=== PATIENT | female | born 1965 | race Caucasian/White ===

== ENCOUNTER 2016-12-01 01:08 | Emergency (ER) | payer SELFPAY ==
[~2016-12-01] VITALS: Ht 172.7 cm; Wt 67.4 kg
[~2016-12-01 01:08] MED LIST: ADVI200C5 PO; GINS250C2 PO; LEVO125T4 PO; LYRI75CA PO; PERC5TAB12 PO; TRAZ100T4 PO
[2016-12-01 01:16] VITALS: BP 154/110; PULSE 84; RESP 16; TEMP 99.3; O2SAT 99
[2016-12-01] MEDS ORDERED: SODIUM CHLOR 0.9% 1000 ML INJ 1,000 ML IV SCH (01:35)
[2016-12-01] MEDS ORDERED: SODIUM CHLORIDE 0.9% FLUSH 5 ML FLUSH IVF PRN (01:45)
[2016-12-01] MEDS ORDERED: ONDANSETRON HCL 4 MG/2 ML VIAL IVP ONE (01:45)
[2016-12-01] MEDS ORDERED: PANTOPRAZOLE SODIUM 40 MG VIAL IVP ONE (01:45)
[2016-12-01] MEDS ORDERED: MORPHINE SULFATE 4 MG/ML INJ IV PUSH ONE ×2 (01:45→03:45)
--- NOTE | 2016-12-01 01:47 | PD ---
HPI Chief Complaint: Abdominal Pain Time Seen by Provider: 01:35 Travel History International Travel<30 days: No Contact w/Intl Traveler<30days: No Traveled to known affect area: No History of Present Illness HPI 51-year-old female presents to the emergency department for complaint of abdominal pain. Patient states she is having exacerbation of recurrent pancreatitis. Patient has history of previous hepatitis C pancreatitis cholecystectomy chest pain myocardial infarction stent placement times one seizure disorder hypertension dyslipidemia and hypothyroidism. Patient denies any chest pain or shortness of breath at this time. Patient has had nausea and vomiting. Patient is unable to identify exacerbating or alleviating factors. No hematemesis no coffee-ground emesis also no melena or hematochezia. No urinary symptoms. No recent febrile illness or respiratory illness. Patient states that oftentimes changing her diet reading something unusual trigger an episode but does not know other precipitating events. Denies alcohol use. Denies hypertriglyceridemia. Patient rates her pain 10 over 10 in intensity. PFSH Past Medical History Narrative Medical CAD, myocardial infarction, coronary stent, hypertension, anxiety depression, arthritis, migraine, thyroid cancer status post chemotherapy and radiation therapy, seizure, TIA, cardiac catheterization, tubal ligation, appendectomy, cholecystectomy, MRCP, endoscopy, no tobacco use no alcohol use nursing notes reviewed Hx Anticoagulant Therapy: No Arthritis: Yes (Severe in hands) Asthma: No Autoimmune Disease: No Bipolar Disorder: Yes Anxiety: No Depression: Yes (D/t circumstances) Heart Rhythm Problems: No Cancer: Yes (Thyroid cancer) Cardiac Catheterization: Yes (FIVE TIMES ALONG WITH ONE STENT) Cardiovascular Problems: Yes (htn on meds, -2006) High Cholesterol: No Chemotherapy: Yes (hx) Chest Pain: Yes Congestive Heart Failure: No COPD: No Cerebrovascular Accident: Yes (2005 and 2009, temporary left sided weakness, intermittent tingling present) Coronary Artery Disease: Yes Diabetes: No Diminished Hearing: No Endocrine: Yes (Severe Chronic Pancreatitis) Gastrointestinal Disorders: Yes (NAUSEA AND VOMITTING FOR 6 DAYS) GERD: No Genitourinary: Yes (Recurrent yeast infections) Headaches: Yes (About once a month) Hepatitis: Yes (C) Hiatal Hernia: No Herniated Disk: Yes (L4,L5) Hypertension: Yes (FOR HTN) Immune Disorder: No Implanted Vascular Access Dvce: No Insomnia: Yes Kidney Stones: No Musculoskeletal: Yes (Feet hurt and throb within the past two months) Neurologic: Yes Psychiatric: No Reproductive: Yes Respiratory: No Immunizations Current: Yes Migraines: Yes (About once a month) Myocardial Infarction: Yes (2010) Pancreatitis: Yes Pneumonia: Yes Radiation Therapy: Yes (HX ) Renal Failure: No Seizures: Yes Shingles: Yes Sickle Cell Disease: No Sleep Apnea: No Thyroid Disease: Yes (Thyroid cancer, thyroidectomy) Ulcer: No PNEUMOCCOCAL Vaccine (Year): 2010 Menopausal: Yes : 8 Para: 6 Miscarriage: 1 : 1 Ectopic : Yes (x2) Tubal Ligation: Yes Past Surgical History Abdominal Surgery: Yes (gallbladder removal ) AICD: No Appendectomy: Yes (1992) Arteriovenous Shunt: No Body Medical Devices: NONE PER PT Cardiac Surgery: Yes (Cardiac catherterization X5 and coil placed on side of heart) Section: Yes (X2) Cholecystectomy: Yes (SEP 2014) Coronary Artery Bypass Graft: No Coronary Stent: Yes (X1) Ear Surgery: No Endocrine Surgery: Yes (Thyroidectomy to remove thyroid cancer) Eye Surgery: No Genitourinary Surgery: Yes (Bladder lift with mesh and sling) Gynecologic Surgery: Yes ( X2, buttock, anus, and vagina reconstruction, hyserectomy) Hysterectomy: Yes Insulin Pump: No Joint Replacement: No Neurologic Surgery: Yes Oral Surgery: No Pacemaker: No Thoracic Surgery: No Tonsillectomy: Yes Other Surgery: Yes Social History Alcohol Use: No Tobacco Use: No Substance Use: No Allergies-Medications (Allergen,Severity, Reaction): Coded Allergies: No Known Allergies (Unverified , 12/01/16) Reported Meds & Prescriptions Reported Meds & Active Scripts Active Lyrica (Pregabalin) 75 Mg Cap 75 Mg PO BID Reported Zofran (Ondansetron HCl) 8 Mg Tab 8 Mg PO TID Xanax (Alprazolam) 1 Mg Tab 1 Mg PO BID PRN Ginseng 250 Mg Cap 1,553 Mg PO TID Levothyroxine (Levothyroxine Sodium) 125 Mcg Tab 125 Mcg PO DAILY Percocet (Oxycodone-Acetaminophen) 5-325 mg Tab 1 Tab PO Q4H PRN Advil (Ibuprofen) 200 Mg Cap 200 Mg PO QID Review of Systems Except as stated in HPI: all other systems reviewed are Neg General / Constitutional: No: Fever, Chills HENT: No: Congestion Cardiovascular: No: Chest Pain or Discomfort Respiratory: No: Shortness of Breath Gastrointestinal: Positive: Nausea, Vomiting, Abdominal Pain Genitourinary: No: Flank Pain Musculoskeletal: No: Myalgias, Arthralgias Skin: No Rash Neurologic: No: Weakness Psychiatric: Positive: Anxiety Hematologic/Lymphatic: No: Lymph Node Enlargement Physical Exam Narrative GENERAL: Well-developed well-nourished female in no acute distress no respiratory distress SKIN: Warm and dry. HEAD: Normocephalic. EYES: No scleral icterus. No injection or drainage. NECK: Supple, trachea midline. No JVD or lymphadenopathy. CARDIOVASCULAR: Regular rate and rhythm without murmurs, gallops, or rubs. RESPIRATORY: Breath sounds equal bilaterally. No accessory muscle use. GASTROINTESTINAL: Abdomen soft, epigastric and periumbilical tenderness to palpation without guarding or rebound, nondistended. MUSCULOSKELETAL: No cyanosis, or edema. BACK: Nontender without obvious deformity. No CVA tenderness. Data Data Last Documented VS Vital Signs Date Time Temp Pulse Resp B/P Pulse Ox O2 Delivery O2 Flow Rate FiO2 12/01/16 02:07 69 20 140/81 98 12/01/16 01:16 99.3 Orders Complete Blood Count With Diff (12/01/16 01:35) Comprehensive Metabolic Panel (12/01/16 01:35) Lipase (12/01/16 01:35) Lactic Acid (12/01/16 01:35) Urinalysis - C+S If Indicated (12/01/16 01:35) Ct Abd/Pel W Iv Contrast(Rout) (12/01/16 01:35) Iv Access Insert/Monitor (12/01/16 01:35) Ecg Monitoring (12/01/16 01:35) Oximetry (12/01/16 01:35) Morphine Inj (Morphine Inj) (12/01/16 01:45) Ondansetron Inj (Zofran Inj) (12/01/16 01:45) Pantoprazole Inj (Protonix Inj) (12/01/16 01:45) Sodium Chlor 0.9% 1000 Ml Inj (Ns 1000 M (12/01/16 01:35) Sodium Chloride 0.9% Flush (Ns Flush) (12/01/16 01:45) Chest, Single Ap (12/01/16 01:35) Troponin I (12/01/16 01:35) Electrocardiogram (12/01/16 ) Iohexol 350 Inj (Omnipaque 350 Inj) (12/01/16 02:46) Sodium Chlor 0.9% 1000 Ml Inj (Ns 1000 M (12/01/16 03:45) Morphine Inj (Morphine Inj) (12/01/16 03:45) Ketorolac Inj (Toradol Inj) (12/01/16 03:45) Ondansetron Inj (Zofran Inj) (12/01/16 03:45) Labs Laboratory Tests Test 12/01/16 01:30 White Blood Count 6.4 TH/MM3 Red Blood Count 4.49 MIL/MM3 Hemoglobin 12.8 GM/DL Hematocrit 38.1 % Mean Corpuscular Volume 84.7 FL Mean Corpuscular Hemoglobin 28.5 PG Mean Corpuscular Hemoglobin 33.6 % Concent Red Cell Distribution Width 12.8 % Platelet Count 227 TH/MM3 Mean Platelet Volume 8.2 FL Neutrophils (%) (Auto) 56.1 % Lymphocytes (%) (Auto) 30.5 % Monocytes (%) (Auto) 11.4 % Eosinophils (%) (Auto) 1.5 % Basophils (%) (Auto) 0.5 % Neutrophils # (Auto) 3.6 TH/MM3 Lymphocytes # (Auto) 2.0 TH/MM3 Monocytes # (Auto) 0.7 TH/MM3 Eosinophils # (Auto) 0.1 TH/MM3 Basophils # (Auto) 0.0 TH/MM3 CBC Comment DIFF FINAL Differential Comment Sodium Level 144 MEQ/L Potassium Level 3.7 MEQ/L Chloride Level 108 MEQ/L Carbon Dioxide Level 25.7 MEQ/L Anion Gap 10 MEQ/L Blood Urea Nitrogen 4 MG/DL Creatinine 0.66 MG/DL Estimat Glomerular Filtration 94 ML/MIN Rate Random Glucose 101 MG/DL Lactic Acid Level 0.7 mmol/L Calcium Level 8.5 MG/DL Total Bilirubin 0.7 MG/DL Aspartate Amino Transf 65 U/L (AST/SGOT) Alanine Aminotransferase 148 U/L (ALT/SGPT) Alkaline Phosphatase 92 U/L Troponin I LESS THAN 0.02 NG/ML Total Protein 7.3 GM/DL Albumin 3.8 GM/DL Lipase 183 U/L MDM Medical Decision Making Medical Screen Exam Complete: Yes Emergency Medical Condition: Yes Medical Record Reviewed: Yes Interpretation(s) trop I: less than 0.02, not elevated EKG normal sinus rhythm rate 68 age indeterminate QS septally no acute ST elevation or injury pattern change noted; changes noted on prior EKG's Last Impressions Chest X-Ray 12/01/16134 Signed Impressions: Service Date/Time: Thursday, December 01, 2016 02:40 - CONCLUSION: 1. No acute cardiopulmonary disease. Taj Lopez MD Abdomen/Pelvis CT 12/01/16134 Signed Impressions: Service Date/Time: Thursday, December 01, 2016 02:28 - CONCLUSION: 1. No evidence of acute abdominal or pelvic process. No masses are identified. Taj Lopez MD Vital Signs Date Time Temp Pulse Resp B/P Pulse Ox O2 Delivery O2 Flow Rate FiO2 12/01/16 02:07 69 20 140/81 98 12/01/16 02:03 20 12/01/16 01:16 99.3 84 16 154/110 99 CBC & BMP Diagram 12/01/16 01:30 Differential Diagnosis Abdominal pain pancreatitis gastritis peptic ulcer disease choledocholithiasis atypical chest pain ACS also to consider colitis renal colic abdominal aortic aneurysm Narrative Course Patient Nothing by mouth IV access obtained specimens collected and sent for resulting patient administered Zofran 4 mg IV Protonix 40 mg IV and morphine sulfate 4 mg IV along with bolus of normal saline; EKG and cardiac enzymes were ordered Patient sent for CT abdomen and pelvis with IV contrast Patient continued to experience nausea and abdominal pain requesting more pain medication and medication for nausea and vomiting Patient administered additional dose of morphine sulfate 2 mg IV Zofran 4 mg IV Toradol 30 mg IV; patient specifically requesting Phenergan administered Phenergan 25 mg IM Patient informed of lab results being all within normal range including troponin I less than 0.02 EKG being sinus rhythm without any acute injury pattern change and CT abdomen and causes revealing no acute abnormality. Patient is stable for outpatient management and close follow-up with her primary care provider. Patient will be given prescription for Phenergan in tablet and suppository form. Diagnosis Primary Impression: Abdominal pain Qualified Code: R10.33 - Periumbilical abdominal pain Additional Impression: Recurrent pancreatitis Referrals: Primary Care Physician 1 day Patient Instructions: Narcotic given in the ED, General Instructions Additional Instructions: Follow clear liquid diet for next 12-24 hours; advance diet as tolerated with bland/Sheri diet; advance to regular diet as tolerated Follow-up with your primary care provider call office in a.m. to schedule follow -up appointment Return to the emergency department for pain fever vomiting or any concerns Use Phenergan as prescribed as needed for nausea or vomiting use tablet form but provided suppository form for breakthrough nausea and vomiting Fluid hydration No work times one day Med/Other Pt SpecificInfo: Prescription(s) given Scripts Promethazine Supp (Phenergan Supp)25 Mg Supp25 Mg RECTAL Q6H PRN (NAUSEA OR VOMITING) #6 SUPP Ref 0 Prov:Radha Lyon MD 12/01/16 Promethazine (Phenergan)25 Mg Tab25 Mg PO Q6H PRN (Nausea/Vomiting) #10 TAB Ref 0 Prov:Radha Lyon MD 12/01/16 Disposition: 01 DISCHARGE HOME Condition: Stable Radha Lyon MD Dec 01, 2016 01:46
[2016-12-01 01:54] LABS: AUTOMATED NEUTROPHIL # 3.6 TH/MM3 (1.8-7.7); BASOPHIL % 0.5 % (0.0-2.0); EOSINOPHIL # 0.1 TH/MM3 (0-0.4); EOSINOPHIL % 1.5 % (0.0-4.0); HEMATOCRIT 38.1 % (35.0-46.0); HEMO FLAGS DIFF FINAL; LYMPH % 30.5 % (9.0-44.0); MEAN CELL VOLUME 84.7 FL (80.0-100.0); MEAN CORPUSCULAR HEMOGLOBIN 28.5 PG (27.0-34.0); MEAN CORPUSCULAR HGB CONC 33.6 % (32.0-36.0); MONO % 11.4 % (0.0-8.0); NEUT % 56.1 % (16.0-70.0); PLATELET COUNT 227 TH/MM3 (150-450); RED BLOOD COUNT 4.49 MIL/MM3 (4.00-5.30); RED CELL DISTRIBUTION WIDTH 12.8 % (11.6-17.2); WHITE BLOOD COUNT 6.4 TH/MM3 (4.0-11.0)
[2016-12-01 02:04] LABS: CHLORIDE 108 MEQ/L (98-107); POTASSIUM 3.7 MEQ/L (3.5-5.1); SODIUM (NA) 144 MEQ/L (136-145)
[2016-12-01 02:07] VITALS: BP 140/81; PULSE 69; RESP 20; O2SAT 98
[2016-12-01 02:07] LABS: ANION GAP 10 MEQ/L (5-15); BICARBONATE 25.7 MEQ/L (21.0-32.0)
[2016-12-01 02:08] LABS: BLOOD UREA NITROGEN 4 MG/DL (7-18)
[2016-12-01 02:10] LABS: ALT (GPT) 148 U/L (10-53); AST (GOT) 65 U/L (15-37); GLOMERULAR FILTRATION RATE 94 ML/MIN (>89)
[2016-12-01 02:12] LABS: TOTAL BILIRUBIN ADULT 0.7 MG/DL (0.2-1.0)
[2016-12-01] MEDS ORDERED: XANA1TAB2 PO (02:12)
[2016-12-01] MEDS ORDERED: ZOFR8TAB PO (02:12)
[2016-12-01 02:13] LABS: ALKALINE PHOSPHATASE 92 U/L (45-117)
[2016-12-01] MEDS ORDERED: IOHEXOL 350 MG/ML 10 ML VIAL (for RAD DIAG) IV ONE (02:46)
[2016-12-01 03:00] VITALS: BP 131/66; PULSE 71; RESP 20; O2SAT 99
--- NOTE | 2016-12-01 03:19 | RADHPO ---
EXAM DATE/TIME: 12/01/2016 02:40 [facility] COMPARISON: CHEST SINGLE AP, February 10, 2015, 19:29. INDICATIONS : Tightness in chest. MEDICAL HISTORY : Cerebrovascular disease. Cardiovascular disease. Hypertension. SURGICAL HISTORY : Cholecystectomy. Appendectomy. Hysterectomy. ENCOUNTER: Initial ACUITY: 1 day PAIN SCORE: 9/10 LOCATION: Bilateral chest FINDINGS: A single view of the chest demonstrates the lungs to be symmetrically aerated without evidence of mas s, infiltrate or effusion. The cardiomediastinal contours are unremarkable. Osseous structures are intact. CONCLUSION: 1. No acute cardiopulmonary disease. Taj Lopez MD on December 01, 2016 at 3:18 Board Certified Radiologist. This report was verified electronically.
--- NOTE | 2016-12-01 03:23 | RADHPO ---
EXAM DATE/TIME: 12/01/2016 02:28 [facility] COMPARISON: MRCP W/O CONTRAST, May 10, 2016, 10:55. CT ABDOMEN & PELVIS W CONTRAST, February 10, 2015, 22:00. INDICATIONS : Diffuse abdominal pain with nausea and vomiting. IV CONTRAST: 95 cc Omnipaque 350 (iohexol) IV ORAL CONTRAST: No oral contrast ingested. RADIATION DOSE: 9.04 CTDIvol (mGy) MEDICAL HISTORY : Myocardial infarction. Hepatitis C. Coronary artery disease. SURGICAL HISTORY : Coronary artery stent. Cholecystectomy.Appendectomy.Hysterectomy. ENCOUNTER: Initial ACUITY: 1 day PAIN SCALE: 6/10 LOCATION: Abdomen. TECHNIQUE: Volumetric scanning of the abdomen and pelvis was performed. Using automated exposure control and ad justment of the mA and/or kV according to patient size, radiation dose was kept as low as reasonably achievable to obtain optimal diagnostic quality images. FINDINGS: LOWER LUNGS: The visualized lower lungs are clear. LIVER: Homogeneous density without lesion. There is no dilation of the biliary tree. The gallbladder is mahajan rgically absent. The intrahepatic ducts and common bile duct are prominent which may reflect reservoi r effect. SPLEEN: Normal size without lesion. PANCREAS: Within normal limits. KIDNEYS: Normal in size and shape. There is no mass, stone or hydronephrosis. ADRENAL GLANDS: Within normal limits. VASCULAR: There is no aortic aneurysm. BOWEL/MESENTERY: The stomach, small bowel, and colon demonstrate no acute abnormality. There is no free intraperitone al air or fluid. ABDOMINAL WALL: Within normal limits. RETROPERITONEUM: There is no lymphadenopathy. BLADDER: No wall thickening or mass. REPRODUCTIVE: Within normal limits. INGUINAL: There is no lymphadenopathy or hernia. MUSCULOSKELETAL: Within normal limits for patient age. CONCLUSION: 1. No evidence of acute abdominal or pelvic process. No masses are identified. Taj Lopez MD on December 01, 2016 at 3:18 Board Certified Radiologist. This report was verified electronically.
[2016-12-01] MEDS ORDERED: KETOROLAC TROMETHAMINE 30 MG/ML (IVP) VIAL IV PUSH ONE (03:45)
[2016-12-01] MEDS ORDERED: SODIUM CHLOR 0.9% 1000 ML INJ 1,000 ML IV ONE (03:45)
[2016-12-01] MEDS ORDERED: ONDANSETRON HCL 4 MG/2 ML VIAL IV PUSH ONE (03:45)
[2016-12-01] MEDS ORDERED: PROM1SUP7 RECTAL (03:54)
[2016-12-01] MEDS ORDERED: PROM25TA5 PO (03:54)
[2016-12-01] MEDS ORDERED: PROMETHAZINE INJ 25 MG/ML VIAL IM ONE (04:00)
[2016-12-01 05:10] VITALS: BP 133/54
--- NOTE | 2016-12-02 08:21 | EKG ---
Date Performed: 12/01/2016 Time Performed: 02:01:38 PTAGE: 51 years EKG: Sinus rhythm Since previous tracing, no significant change noted Normal ECG PREVIOUS TRACING : 06/02/2016 13.24 DOCTOR: Taj Ratliff Interpretating Date/Time 12/02/2016 08:19:48
== END 2016-12-01 05:10 | disposition home or self-care (01) ==
LOC: PHED 01:08
DX: R10.33 Periumbilical pain (principal); K86.1 Other chronic pancreatitis; K86.81 Exocrine pancreatic insufficiency; R11.2 Nausea with vomiting, unspecified; I10 Essential (primary) hypertension; Z86.79 Personal history of other diseases of the circulatory system; Z86.59 Personal history of other mental and behavioral disorders; Z87.39 Personal history of other diseases of the musculoskeletal system and connective tissue; Z86.69 Personal history of other diseases of the nervous system and sense organs; Z85.850 Personal history of malignant neoplasm of thyroid; Z86.73 Personal history of transient ischemic attack (TIA), and cerebral infarction without residual deficits; Z87.19 Personal history of other diseases of the digestive system; Z86.19 Personal history of other infectious and parasitic diseases; Z87.448 Personal history of other diseases of urinary system; Z87.09 Personal history of other diseases of the respiratory system
CPT/HCPCS: 71010; 74177; 80053; 83605; 83690; 84484; 85025; 93005; 96372; 96374; 96375; 96376; 99285; C9113; J1885; J2270; J2405; J2550; J7030; Q9967

== ENCOUNTER 2017-01-15 18:46 | Inpatient (IN) | payer SELFPAY ==
[~2017-01-15] VITALS: Ht 172.7 cm; Wt 75.5 kg
[~2017-01-15 18:46] MED LIST changes: +PROM1SUP7 RECTAL; +PROM25TA5 PO; -TRAZ100T4 PO; +XANA1TAB2 PO; +ZOFR8TAB PO
[2017-01-15 19:10] VITALS: BP 158/83; PULSE 71; RESP 18; TEMP 99.2; O2SAT 98
[2017-01-15] MEDS ORDERED: HYDR-3535 PO (19:13)
--- NOTE | 2017-01-15 19:27 | PD ---
HPI Chief Complaint: Chest Pain Time Seen by Provider: 19:15 Travel History International Travel<30 days: No Contact w/Intl Traveler<30days: No Traveled to known affect area: No History of Present Illness HPI This 51-year-old female is complaining of chest pain. She says about 45 minutes ago she started having pain which started in the sternal area and radiates to the right shoulder blade. She feels her heartbeat in her left ear. She has a history of coronary artery disease and has stents in her heart that were placed at [facility] about 2 years ago. She has a history of high blood pressure. She says she has had 3 seizures in the last couple of years and says she feels like she's can have one now. She does take aspirin daily and says she took it today. She has not had any chest pain for a while. She cannot recall if this is like the pain she had with her heart trouble. She has a history of bipolar disorder. He has a history of hypothyroidism and takes Synthroid. She does not smoke cigarettes. She does not drink alcohol. She did have chronic pancreatitis of unknown known etiology. there is a very strong family history of heart disease PFSH Past Medical History Hx Anticoagulant Therapy: No Arthritis: Yes Asthma: No Autoimmune Disease: No Bipolar Disorder: Yes Anxiety: No Depression: Yes Heart Rhythm Problems: No Cancer: Yes (Thyroid) Cardiac Catheterization: Yes (X's 1, one stent) Cardiovascular Problems: Yes High Cholesterol: No Chemotherapy: Yes Chest Pain: Yes Congestive Heart Failure: No COPD: No Cerebrovascular Accident: Yes (2005, 2009) Coronary Artery Disease: Yes Diabetes: No Diminished Hearing: No Endocrine: Yes (CHRONIC PANCREATITIS) Gastrointestinal Disorders: Yes GERD: No Genitourinary: Yes Headaches: Yes Hepatitis: Yes (C) Hiatal Hernia: No Herniated Disk: Yes (L4, L5) Hypertension: Yes Immune Disorder: No Implanted Vascular Access Dvce: No Insomnia: Yes Kidney Stones: No Musculoskeletal: Yes Neurologic: Yes Psychiatric: No Reproductive: Yes Respiratory: No Immunizations Current: Yes Migraines: Yes Myocardial Infarction: Yes (2010) Pancreatitis: Yes Pneumonia: Yes Radiation Therapy: Yes (H/O) Renal Failure: No Seizures: Yes Shingles: Yes Sickle Cell Disease: No Sleep Apnea: No Thyroid Disease: Yes Ulcer: No Tetanus Vaccination: > 5 Years Influenza Vaccination: Yes PNEUMOCCOCAL Vaccine (Year): 2010 ?: Not Menopausal: Yes : 8 Para: 6 Miscarriage: 1 : 1 Ectopic : Yes (X's 2) Tubal Ligation: Yes Past Surgical History Abdominal Surgery: Yes AICD: No Appendectomy: Yes (1992) Arteriovenous Shunt: No Body Medical Devices: NONE PER PT Cardiac Surgery: Yes Section: Yes (X's 2) Cholecystectomy: Yes Coronary Artery Bypass Graft: No Coronary Stent: Yes (X's 1) Ear Surgery: No Endocrine Surgery: Yes Eye Surgery: No Genitourinary Surgery: Yes (Bladder) Gynecologic Surgery: Yes (Pelvic mesh) Hysterectomy: Yes Insulin Pump: No Joint Replacement: No Neurologic Surgery: Yes Oral Surgery: No Pacemaker: No Thoracic Surgery: No Tonsillectomy: Yes Other Surgery: Yes Social History Alcohol Use: No Tobacco Use: No Substance Use: No Allergies-Medications (Allergen,Severity, Reaction): Coded Allergies: No Known Allergies (Unverified , 01/15/17) Reported Meds & Prescriptions Reported Meds & Active Scripts Active Reported Lortab (Hydrocodone-Acetaminophen) 10-325 Mg Tab 1 Tab PO TID PRN Levothyroxine (Levothyroxine Sodium) 125 Mcg Tab 125 Mcg PO DAILY Review of Systems General / Constitutional: No: Fever, Chills Eyes: No: Diploplia, Blurred Vision HENT: Positive: Lightheadedness, No: Headaches, Vertigo Cardiovascular: Positive: Chest Pain or Discomfort, No: Palpitations, Diaphoresis, Syncope, Dyspnea on exertion, Varicosities Respiratory: No: Cough, Shortness of Breath Gastrointestinal: No: Vomiting Genitourinary: No: Frequency Musculoskeletal: No: Myalgias, Arthralgias Skin: No Rash, No Itching Neurologic: No: Weakness Psychiatric: Positive: Mood Disorder Endocrine: No: Cold Intolerance Hematologic/Lymphatic: No: Easy Bruising Physical Exam Narrative GENERAL: Well-developed female SKIN: Focused skin assessment warm/dry. HEAD: Atraumatic. Normocephalic. EYES: Pupils equal and round. Mild scleral icterus. There is some soft tissue swelling around the eyes ENT: No nasal bleeding or discharge. Mucous membranes pink and moist. NECK: Trachea midline. No JVD. CARDIOVASCULAR: Regular rate and rhythm. No murmur appreciated. RESPIRATORY: No accessory muscle use. Clear to auscultation. Breath sounds equal bilaterally. No chest wall tenderness GASTROINTESTINAL: Abdomen soft, non-tender, nondistended. Hepatic and splenic margins not palpable. MUSCULOSKELETAL: No obvious deformities. No clubbing. No cyanosis. No edema. NEUROLOGICAL: Awake and alert. No obvious cranial nerve deficits. Motor grossly within normal limits. Normal speech. PSYCHIATRIC: Appropriate mood and affect; insight and judgment normal. Data Data Last Documented VS Vital Signs Date Time Temp Pulse Resp B/P Pulse Ox O2 Delivery O2 Flow Rate FiO2 01/15/17 20:40 74 18 140/89 97 Room Air 01/15/17 19:10 99.2 Orders Complete Blood Count With Diff (01/15/17 19:24) Basic Metabolic Panel (Bmp) (01/15/17 19:24) Troponin I (01/15/17 19:24) Chest, Single Ap (01/15/17 19:24) Lorazepam Inj (Ativan Inj) (01/15/17 19:30) Ondansetron Inj (Zofran Inj) (01/15/17 19:30) Morphine Inj (Morphine Inj) (01/15/17 19:30) Thyroid Stimulating Hormone (01/15/17 19:35) Potassium Chloride (Kcl) (01/15/17 20:15) Morphine Inj (Morphine Inj) (01/15/17 20:45) Labs Laboratory Tests Test 01/15/17 19:35 White Blood Count 5.6 TH/MM3 Red Blood Count 4.25 MIL/MM3 Hemoglobin 12.1 GM/DL Hematocrit 36.3 % Mean Corpuscular Volume 85.5 FL Mean Corpuscular Hemoglobin 28.4 PG Mean Corpuscular Hemoglobin 33.3 % Concent Red Cell Distribution Width 13.2 % Platelet Count 225 TH/MM3 Mean Platelet Volume 8.3 FL Neutrophils (%) (Auto) 44.7 % Lymphocytes (%) (Auto) 39.1 % Monocytes (%) (Auto) 12.3 % Eosinophils (%) (Auto) 3.4 % Basophils (%) (Auto) 0.5 % Neutrophils # (Auto) 2.5 TH/MM3 Lymphocytes # (Auto) 2.2 TH/MM3 Monocytes # (Auto) 0.7 TH/MM3 Eosinophils # (Auto) 0.2 TH/MM3 Basophils # (Auto) 0.0 TH/MM3 CBC Comment DIFF FINAL Differential Comment Sodium Level 143 MEQ/L Potassium Level 3.3 MEQ/L Chloride Level 104 MEQ/L Carbon Dioxide Level 30.7 MEQ/L Anion Gap 8 MEQ/L Blood Urea Nitrogen 8 MG/DL Creatinine 0.74 MG/DL Estimat Glomerular Filtration 82 ML/MIN Rate Random Glucose 86 MG/DL Calcium Level 8.4 MG/DL Troponin I LESS THAN 0.02 NG/ML Thyroid Stimulating Hormone 0.259 uIU/ML 3rd Gen [facility] Medical Decision Making Medical Screen Exam Complete: Yes Emergency Medical Condition: Yes Medical Record Reviewed: Yes Differential Diagnosis Differential includes chest wall pain, anxiety, coronary artery disease Narrative Course EKG shows normal sinus rhythm. Patient does take aspirin every day. Her troponin is negative. She does have significant history of coronary artery disease though her pain tonight seems atypical. Chest x-ray is negative. TSH is low. Diagnosis Primary Impression: Chest pain Qualified Code: R07.9 - Chest pain, unspecified type Admitting Information Admitting Physician Requests: Observation Kan Yao MD Jan 15, 2017 19:27
[2017-01-15] MEDS ORDERED: MORPHINE SULFATE 8 MG/ML INJ IV PUSH ONE ×2 (19:30→20:45)
[2017-01-15] MEDS ORDERED: ONDANSETRON HCL 4 MG/2 ML VIAL IV PUSH ONE (19:30)
[2017-01-15] MEDS ORDERED: LORazepam 2 MG/ML VIAL IV PUSH ONE (19:30)
--- NOTE | 2017-01-15 19:50 | RADHPO ---
EXAM DATE/TIME: 01/15/2017 19:37 [facility] COMPARISON: CHEST SINGLE AP, December 01, 2016, 2:40. INDICATIONS : Chest pain. MEDICAL HISTORY : Myocardial infarction. SURGICAL HISTORY : None. ENCOUNTER: Initial ACUITY: 1 day PAIN SCORE: 5/10 LOCATION: Bilateral chest FINDINGS: A single view of the chest demonstrates the lungs to be symmetrically aerated without evidence of mas s, infiltrate or effusion. The cardiomediastinal contours are unremarkable. Osseous structures are intact. CONCLUSION: No acute disease. Jonah Johnson MD on January 15, 2017 at 19:48 Board Certified Radiologist. This report was verified electronically.
[2017-01-15 20:06] LABS: AUTOMATED NEUTROPHIL # 2.5 TH/MM3 (1.8-7.7); BASOPHIL % 0.5 % (0.0-2.0); EOSINOPHIL # 0.2 TH/MM3 (0-0.4); EOSINOPHIL % 3.4 % (0.0-4.0); HEMATOCRIT 36.3 % (35.0-46.0); HEMO FLAGS DIFF FINAL; LYMPH % 39.1 % (9.0-44.0); LYMPHOCYTE # 2.2 TH/MM3 (1.0-4.8); MEAN CELL VOLUME 85.5 FL (80.0-100.0); MEAN CORPUSCULAR HEMOGLOBIN 28.4 PG (27.0-34.0); MEAN CORPUSCULAR HGB CONC 33.3 % (32.0-36.0); MONO % 12.3 % (0.0-8.0); NEUT % 44.7 % (16.0-70.0); PLATELET COUNT 225 TH/MM3 (150-450); RED BLOOD COUNT 4.25 MIL/MM3 (4.00-5.30); RED CELL DISTRIBUTION WIDTH 13.2 % (11.6-17.2); WHITE BLOOD COUNT 5.6 TH/MM3 (4.0-11.0)
[2017-01-15 20:07] LABS: CHLORIDE 104 MEQ/L (98-107); POTASSIUM 3.3 MEQ/L (3.5-5.1); SODIUM (NA) 143 MEQ/L (136-145)
[2017-01-15 20:13] LABS: ANION GAP 8 MEQ/L (5-15); BICARBONATE 30.7 MEQ/L (21.0-32.0); BLOOD UREA NITROGEN 8 MG/DL (7-18)
[2017-01-15] MEDS ORDERED: POTASSIUM CHLORIDE 20 MEQ CONTROLLED RELEASE TAB PO ONE (20:15)
[2017-01-15 20:16] LABS: GLOMERULAR FILTRATION RATE 82 ML/MIN (>89)
[2017-01-15 20:40] VITALS: BP 140/89; PULSE 74; RESP 18; O2SAT 97
[2017-01-15 21:36] VITALS: O2SAT 97
[2017-01-15 22:56] LABS: CREATINE KINASE 46 U/L (26-192)
[2017-01-16] VITALS (9 sets, daily range): BP systolic 136–151; BP diastolic 71–98; PULSE 58–81; RESP 16–18; TEMP 98–98.9; O2SAT 97–99
[2017-01-16] MEDS: MORPHINE SULFATE 4 MG/ML INJ IV PUSH PRN ×6 (00:41→21:41)
[2017-01-16 01:55] LABS: CREATINE KINASE 47 U/L (26-192)
[2017-01-16] MEDS ORDERED: ALPRAZolam 0.25 MG TAB PO ONE (04:45)
[2017-01-16] MEDS: ONDANSETRON HCL 4 MG/2 ML VIAL IV PUSH PRN (04:49)
[2017-01-16 06:14] LABS: INDIRECT BILIRUBIN 0.5 MG/DL (0.0-0.8); TOTAL BILIRUBIN ADULT 0.7 MG/DL (0.2-1.0)
[2017-01-16] MEDS: SODIUM CHLORIDE 0.9% FLUSH 10 ML FLUSH IV FLUSH SCH ×2 (08:51→21:00)
[2017-01-16] MEDS ORDERED: LORazepam 2 MG/ML VIAL IV PUSH PRN (10:30)
--- NOTE | 2017-01-16 10:47 | HHI.HP ---
[facility] Abimael Saldana MD Admission Diagnosis CHEST PAIN Diagnoses: (1) Chest pain Diagnosis: Principal (2) Coronary artery disease Diagnosis: Principal (3) Hypertension Diagnosis: Secondary (4) History of seizure Diagnosis: Secondary Chief Complaint: Chest pain Travel History International Travel<30 Days: No Contact w/Intl Traveler <30 Da: No Traveled to Known Affected Are: No History of Present Illness 51-year-old female with rather extensive medical history with hypertension, hyperlipidemia, coronary artery disease, hypothyroidism, history of seizures, bipolar disorder, hepatitis C, history of recurrent pancreatitis, history of thyroid cancer, history of Graves' disease who presented to hospital because of chest pain. Patient states that she was at work and approximate 4: 30 yesterday afternoon she developed a chest pain in the middle part of her chest radiating up into her right shoulder. She described as a pain of 8/10 on a pain scale. She states that the pain was persistent and did not go away so she came to the hospital for evaluation. So quickly she indicates that she has some numbness in the left side of her face as well. She had associated nausea but no vomiting, does get short of breath, did have some dizziness, did develop diaphoresis. Patient does have history seizures, she indicates she is not on any medication for this time. States that she cannot afford the medication. She also feels that she is getting ready to have a seizure. She denies any recent seizures. Patient was evaluated in emergency department and because of her presentation of chest discomfort patient was recommended observation chest pain center. Patient has had previous cardiac catheterization 8 years ago in which she states that they could not put a stent in because of the angle of the artery. She states that she had a coiling done of her heart because of the fistula. Not seen a scientific specialist in at least 7 years. She has had a stress test done in April 2016 which was normal. At the present time patient still an active chest pain which is atypical. She is concerned that if we rule her out for any acute coronary syndrome or any underlying ischemia then she does not want to go home because she feels that she is getting ready to have a seizure. She is requesting further workup to be done if her cardiac workup is negative. Review of Systems Constitutional: COMPLAINS OF: Diaphoretic episodes, Night Sweats, DENIES: Fatigue, Fever, Weight gain, Weight loss, Chills, Dizziness, Change in appetite Eyes: COMPLAINS OF: Blurred vision, DENIES: Diplopia, Eye inflammation, Eye pain, Vision loss, Photosensitivity, Double Vision Ears, nose, mouth, throat: DENIES: Vertigo, Nasal discharge, Throat pain, Ear Pain, Running Nose, Sinus Pain Respiratory: DENIES: Apneas, Cough, Snoring, Wheezing, Hemoptysis, Sputum production, Shortness of breath Cardiovascular: COMPLAINS OF: Chest pain, DENIES: Palpitations, Syncope, Dyspnea on Exertion, Lower Extremity Edema, Orthopnea Gastrointestinal: COMPLAINS OF: Nausea, DENIES: Abdominal pain, Black stools, Bloody stools, Constipation, Diarrhea, Vomiting, Difficulty Swallowing, Anorexia Neurologic: COMPLAINS OF: Paresthesias, DENIES: Abnormal gait, Headache, Localized weakness, Seizures, Speech Problems, Tremor, Poor Balance Psychiatric: COMPLAINS OF: Anxiety, DENIES: Confusion, Mood changes, Depression, Hallucinations Past Family Social History Past Medical History Hypertension Hyperlipidemia Coronary artery disease Hypothyroidism Bipolar disorder History of recurrent pancreatitis Hepatitis C History of Graves' disease History myocardial infarction History of cardiac fistula Past Surgical History Thyroid surgery Tubal ligation Cardiac catheterization Appendectomy Cholecystectomy Hysterectomy Bladder mass removed Vaginal reconstructive surgery Reported Medications Reported Meds & Active Scripts Active Reported Lortab (Hydrocodone-Acetaminophen) 10-325 Mg Tab 1 Tab PO TID PRN Levothyroxine (Levothyroxine Sodium) 125 Mcg Tab 125 Mcg PO DAILY Allergies: Coded Allergies: No Known Allergies (Unverified , 01/15/17) Family History Reviewed is significant for anyone in her family having heart disease and heart attacks Social History Patient denies any tobacco, alcohol or illicit drugs Physical Exam Vital Signs Vital Signs Date Time Temp Pulse Resp B/P Pulse Ox O2 Delivery O2 Flow Rate FiO2 01/16/17 07:48 58 01/16/17 07:40 62 18 138/71 96 01/16/17 04:33 Room Air 01/16/17 04:30 98.5 81 18 151/97 98 Room Air 01/16/17 01:00 16 01/16/17 00:40 82 01/16/17 00:40 66 18 151/91 99 Room Air 01/15/17 21:36 97 01/15/17 20:45 18 01/15/17 20:40 74 18 140/89 97 Room Air 01/15/17 19:55 16 01/15/17 19:15 71 01/15/17 19:10 99.2 71 18 158/83 98 Physical Exam GENERAL: Well-developed, well-nourished, in no acute distress. alert and orientated HEENT: Head is normocephalic without any lesions or masses noted. Facial features are symmetric. Eyes: Exophthalmus. Pupils equal round reactive to light. Extraocular muscles are intact. Conjunctivae were clear. Oropharyngeal: Pharynx without any erythema edema. Tongue is midline without deviation. Buccal mucosa is moist without any masses or lesions NECK: Supple without any masses. Trachea midline no deviation. No JVD, no bruits are appreciated CARDIAC: Regular rhythm, regular rate. S1/S2 are heard. No murmurs gallops or rubs. LUNGS: Clear to auscultation bilaterally. No wheeze, rhonchi or rales. No use of accessory muscles on inspiration or expiration. ABDOMEN: Soft, nontender. Nondistended. Bowel sounds heard in all 4 quadrants. No organomegaly or masses. Negative rebound, negative guarding EXTREMITIES: No edema, pulses are equal bilaterally. No cyanosis or clubbing NEUROLOGY: Patient does appear to be depressed, histrionic and affect appear appropriate. Cranial nerves II through XII grossly intact. Muscle strength 5/5 in upper and lower extremities bilaterally. Deep tendon reflexes are 2+ in upper and lower extremities bilaterally. Laboratory Laboratory Tests Test 01/15/17 01/15/17 01/16/17 01/16/17 19:35 22:30 01:30 05:51 White Blood Count 5.6 Red Blood Count 4.25 Hemoglobin 12.1 Hematocrit 36.3 Mean Corpuscular Volume 85.5 Mean Corpuscular Hemoglobin 28.4 Mean Corpuscular Hemoglobin 33.3 Concent Red Cell Distribution Width 13.2 Platelet Count 225 Mean Platelet Volume 8.3 Neutrophils (%) (Auto) 44.7 Lymphocytes (%) (Auto) 39.1 Monocytes (%) (Auto) 12.3 Eosinophils (%) (Auto) 3.4 Basophils (%) (Auto) 0.5 Neutrophils # (Auto) 2.5 Lymphocytes # (Auto) 2.2 Monocytes # (Auto) 0.7 Eosinophils # (Auto) 0.2 Basophils # (Auto) 0.0 CBC Comment DIFF FINAL Differential Comment Sodium Level 143 Potassium Level 3.3 Chloride Level 104 Carbon Dioxide Level 30.7 Anion Gap 8 Blood Urea Nitrogen 8 Creatinine 0.74 Estimat Glomerular Filtration 82 Rate Random Glucose 86 Calcium Level 8.4 Troponin I LESS THAN 0.02 LESS THAN 0.02 LESS THAN 0.02 Thyroid Stimulating Hormone 0.259 3rd Gen Total Creatine Kinase 46 47 Total Bilirubin 0.7 Direct Bilirubin 0.2 Indirect Bilirubin 0.5 Aspartate Amino Transf 71 (AST/SGOT) Alanine Aminotransferase 115 (ALT/SGPT) Alkaline Phosphatase 87 Total Protein 6.1 Albumin 3.1 Lipase 164 Result Diagram: 01/15/17193401/15/171934 Imaging Last Impressions Chest X-Ray 01/15/171923 Signed Impressions: Service Date/Time: December 19:37 - CONCLUSION: No acute disease. Jonah Johnson MD Assessment and Plan Assessment and Plan Chest pain, typical for female: Patient with nonbleeding chest discomfort left sternal border radiating to the right shoulder. Patient has have increased risk factors include age, hypertension, hyperlipidemia, coronary artery disease , family history of heart disease. Patient has been ruled out for any acute coronary event with serial cardiac enzymes that are negative, serial EKGs shows sinus rhythm without any changes. Was going to pursue nuclear stress test, however patient called and stated that she had a seizure. So will discontinue stress test at this time. Further workup to be decided by attending group Seizure per patient: No active seizure was witnessed by medical staff. Nursing staff notified me that the patient called the nursing station and told them that she had a seizure. Upon evaluation and it appears the patient lost bladder control. No loss of bowel control. No post ictal state. Telemetry was reviewed which did not indicate any acute abnormality. We'll transfer the patient to ICU, start seizure precautions, Ativan as needed for active seizures. To be noted: Patient was indicating earlier that she did not want to be discharged home if her cardiac workup was negative. She wanted to have workup done for her seizures because she is not on any medication and cannot afford to pay for them. I notified her that she was in the chest pain center to have cardiac evaluation and if the workup is negative that she would likely be discharged home and would need to have workup done by her primary medical doctor since she has not had any active seizures. Approximately 20 minutes after telling her that is when she notified nursing staff that she had a seizure. Hypothyroidism: Resume home medications. TSH 0.259 History of hypertension, hyperlipidemia, coronary artery disease, bipolar disorder, fibromyalgia, history myocardial infarction, history of recurrent pancreatitis: Patient is not on any active medications for these conditions. It does appear the patient does have a significant psychological condition with history of bipolar. Records indicate patient has have history of suicidal attempt with drug overdose. DVT prevention: Subcutaneous Lovenox Addendum to Inpatient Note Additional Information PCP is Dr. Stevens, patient ruled out for HEAD GRINDER, now complaining of seizures, [facility] Problem Qualifiers (1) Chest pain: Qualified Code: R07.9 - Chest pain, unspecified type (2) Coronary artery disease: (3) Hypertension: Qualified Code: I15.9 - Secondary hypertension Cuong Amado Jan 16, 2017 10:47 Krystal Lee MD Jan 16, 2017 17:55
[2017-01-16] MEDS: ALPRAZolam 1 MG TAB PO PRN (14:14)
--- NOTE | 2017-01-16 16:41 | EKG ---
Date Performed: 01/15/2017 Time Performed: 19:13:24 PTAGE: 51 years EKG: Sinus rhythm Normal ECG Compared to prior tracing no significant change PREVIOUS TRACING : 12/01/2016 02.01 DOCTOR: Catherine Linn Interpretating Date/Time 01/16/2017 16:38:10
--- NOTE | 2017-01-16 16:41 | EKG ---
Date Performed: 01/15/2017 Time Performed: 22:32:08 PTAGE: 51 years EKG: Sinus rhythm Possible septal infarct - age undetermined Compared to prior tracing no significant change Abnormal ECG PREVIOUS TRACING : 01/15/2017 19.13 DOCTOR: Catherine Linn Interpretating Date/Time 01/16/2017 16:38:19
--- NOTE | 2017-01-16 16:41 | EKG ---
Date Performed: 01/16/2017 Time Performed: 01:50:02 PTAGE: 51 years EKG: Sinus rhythm Inferior/lateral ST-T changes are nonspecific Compared to prior tracing no significant change Border line ECG PREVIOUS TRACING : 01/15/2017 22.32 DOCTOR: Catherine Linn Interpretating Date/Time 01/16/2017 16:38:30
[2017-01-17] VITALS: BP 127/96; PULSE 65; RESP 18; TEMP 98; O2SAT 97
[2017-01-17] MEDS: MORPHINE SULFATE 4 MG/ML INJ IV PUSH PRN ×5 (02:37→20:31)
[2017-01-17 04:00] VITALS: BP 130/85; PULSE 93; RESP 20; TEMP 98.9; O2SAT 95
[2017-01-17] MEDS: ALPRAZolam 1 MG TAB PO PRN ×2 (06:48→16:56)
[2017-01-17 08:00] VITALS: BP 139/81; PULSE 67; PULSE 70; RESP 19; TEMP 98.4; O2SAT 98
[2017-01-17] MEDS: SODIUM CHLORIDE 0.9% FLUSH 10 ML FLUSH IV FLUSH SCH ×2 (08:55→21:00)
--- NOTE | 2017-01-17 09:34 | HHI.PR ---
Subjective History of Present Illness Patient c/o right shoulder pain and mild chest discomfort no fever/ chills d/ w RN Ailyn at bed side. deny any suicidal ideation intent and plan refuse to go home. Review of Systems Constitutional Constitutional: Fatigue Vitals/Results Intake & Output 01/16/17 01/16/17 01/17/17 15:00 23:00 07:00 Intake Total 20 ml Balance 20 ml Intake IV Total 20 ml Vital Signs Vital Signs Date Time Temp Pulse Resp B/P Pulse Ox O2 Delivery O2 Flow Rate FiO2 01/17/17 08:00 98.4 70 19 139/81 98 01/17/17 04:00 98.9 93 20 130/85 95 01/17/17 00:00 98.0 65 18 127/96 97 01/16/17 20:49 98.9 70 16 136/90 99 01/16/17 20:00 68 01/16/17 16:00 01/16/17 12:22 97 21 01/16/17 12:00 98.0 62 16 147/98 98 CBC/BMP: 01/15/17 1935 01/15/171934 Physical Exam General General Appearance: No Acute Distress, Comfortable Eyes Eye Exam: Pupils Equal, Pupils Reactive, Sclera White, Extraocular Movement Intact Throat Throat Exam: Oral Mucosa [place] & Moist, Oral Pharynx Normal Neck Neck Exam: Neck Supple, Trachea Midline Pulmonary Resp Exam: Clear Bilaterally, Breath Sounds Equal, No Distress Cardiology CV Exam: Regular, Normal Sinus Rhythm Gastrointestinal/Abdomen GI Exam: Soft, Non-Tender, Bowel Sounds Present Musculoskeletal MS Exam: Normal Tone Integumentary Skin Exam: Clear, Warm, Dry Extremeties Extremities Exam: No Edema Neurologic Neuro Exam: Alert, Awake, Oriented, Speech Clear, Moving All Extremities, No Focal Deficits VTE Prophylaxis VTE Prophylaxis Meds: Heparin PUD Prophylasis PUD Prophylaxis: Protonix Assessment/Plan Problem List: (1) Chest pain (2) Coronary artery disease (3) Hypertension (4) History of seizure Assessment/Plan Assessment and Plan Chest pain, typical for female: Patient with chest discomfort left sternal border radiating to the right shoulder. Patient has have increased risk factors include age, hypertension, hyperlipidemia, coronary artery disease, family history of heart disease. Patient has been ruled out for any acute coronary event with serial cardiac enzymes that are negative, serial EKGs shows sinus rhythm without any changes. have been evaluated multiple times in the past for chest pain Further workup per patient progress. Seizure per patient: No active seizure was witnessed by medical staff. Nursing staff notified me that the patient called the nursing station and told them that she had a seizure. Upon evaluation and it appears the patient lost bladder control. No loss of bowel control. No post ictal state. Telemetry was reviewed which did not indicate any acute abnormality. on seizure precautions, Ativan as needed for seizures. I notified her that she was in the chest pain center to have cardiac evaluation and if the workup is negative that she would likely be discharged home and would need to have workup done by her primary medical doctor since she has not had any active seizures. Hypothyroidism: Resume home medications. TSH 0.259 History of hypertension, hyperlipidemia, coronary artery disease, bipolar disorder, fibromyalgia, history myocardial infarction, history of recurrent pancreatitis: Patient is not on any active medications for these conditions. It does appear the patient does have a significant psychological condition with history of bipolar. Records indicate patient has have history of suicidal attempt with drug overdose. but patient deny any suicidal / homicidal ideation intent and plan. DVT prevention: Subcutaneous Lovenox Discussed Condition with: Patient Problem Qualifiers (1) Chest pain: Qualified Code: R07.9 - Chest pain, unspecified type (2) Coronary artery disease: (3) Hypertension: Qualified Code: I15.9 - Secondary hypertension Torin Milian MD Jan 17, 2017 09:34
[2017-01-17] MEDS ORDERED: PNEUMOCOCCAL POLYVALENT INJ 25 MCG/0.5 ML SYR IM ONE (10:00)
[2017-01-17] MEDS ORDERED: INFLUENZA VIRUS VACCINE (QUADRIVALENT) 0.5 ML SYR IM ONE (10:00)
[2017-01-17] MEDS: ONDANSETRON HCL 4 MG/2 ML VIAL IV PUSH PRN ×2 (10:43→16:56)
[2017-01-17 12:00] VITALS: BP 136/85; PULSE 79; RESP 18; TEMP 98.2; O2SAT 97
--- NOTE | 2017-01-17 12:17 | MB ---
cc: SENAIT GLYNN,HOLLIE YANG DATE OF CONSULTATION: 01/16/[address] Milian REASON FOR CONSULTATION Psychiatric evaluation. HISTORY OF PRESENT ILLNESS Ms. Olivas is a 51-year-old female with no reported past psychiatric history per patient but a chart history of bipolar disorder, mood disorder and substance use issues who presented for medical admission complaining of chest pain. She was admitted to the medical floor for a chest pain rule out. She subsequently developed a spell and there was concern for seizure. Reviewing the electronic medical record, I see the patient was admitted under Dr. Liriano in 2006 when she received a bipolar diagnosis and was stabilized on Zyprexa. She also was noted to have benzo use issues at that time. She was seen most recently by Dr. Carney in 2014 for mood disorder and opiate dependence. The patient seen and examined. Chart reviewed. Case discussed with nursing staff who reports the patient has complained of high anxiety and there is concern that the patient's seizure/spell was feigned. The patient has been no behavioral problem otherwise and there has been no reported evidence of any suicidality or homicidality while under observation on the medical unit. On my examination today, the patient is calm and pleasant. She does complain of modest levels of generalized and panicky anxiety. No obsessive or compulsive symptoms reported. She also reports feeling overwhelmed and has anxious rumination disrupting her sleep. She does endorse some issues with low mood that are mild and some occasional feelings of hopelessness and worthlessness, but no persistent or severe depressive or hypomanic/manic symptoms. She gives a questionable history of perhaps some hypomania as in the past but no clear elver. She denies ever having experienced audiovisual hallucinations and I can elicit no delusional beliefs. She denies SI or HI. The remainder of the psychiatric ROS is negative. PAST PSYCHIATRIC HISTORY The patient denies a history of psychiatric diagnoses. Chart diagnoses as listed above. Not currently under the care of a psychiatrist. Reportedly psychiatrically admitted in 2005 following her father's for a "nervous breakdown". Perhaps this was the admission under Dr. Liriano in 2006. In any event, the patient denies a history of suicide attempts. FAMILY HISTORY The patient reports a paternal great-grandmother completed suicide. She has an older sister with bipolar disorder that was previously on Seroquel. CHEMICAL DEPENDENCY HISTORY The patient denies but has a chart history of benzo and opiate use issues. SOCIAL HISTORY The patient reports that she stays with her children. She has a daughter who is and a son who has several grandchildren of hers. She has five children altogether. 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 She has a Bachelor's Degree in Psychology and Business Management. Denies any history. Denies any legal history. Denies any islam or spiritual beliefs. She was nine months ago. She does keep a gun for protection. PAST MEDICAL HISTORY Includes a history of hypertension, pancreatitis, cirrhosis and hepatitis. The patient also reports that she has had three seizures/spells the last two years with aura. REVIEW OF SYSTEMS No reported headache, vision or hearing changes, chest pain, shortness of breath, bowel or bladder issues. No other physical complaints. PHYSICAL EXAMINATION VITAL SIGNS: Temperature is 98.0, pulse 62, respirations 16, blood pressure 147/98, pulse oximetry 98% on room air. A physical examination was completed by the primary team. On my examination today, the patient appears to be in no acute physical distress. No motoric abnormalities noted. LABORATORIES REVIEWED: CBC unremarkable. CMP is significant for decreased potassium at 3.3 mild transaminitis, TSH is low at 0.259. Chest x-ray is read as no acute disease. MENTAL STATUS EXAMINATION The patient is in a hospital gown but she is well-groomed. She is awake, alert and oriented x3. No evidence of delirium. No abnormal motor movements noted. Speech is within normal limits for rate, tone and volume. Language and fund of knowledge seem average to above-average. Mood is fair and affect is somewhat anxious. Thought process linear. No loosening of associations. No evident delusions. Denies audiovisual hallucinations. Denies suicidal or homicidal ideation. Insight and judgment are fair. ASSESSMENT AND PLAN 1. Mixed anxiety disorder, F41.3. 2. Mood disorder, F39. Rule out bipolar or unipolar mild depression. 3. History of substance use disorder per chart. This is a 51-year-old female with psychiatric history as detailed above who is presently voluntarily admitted to the medical floor for a chest pain rule out and also a concern for seizure. Psychiatry is consulted for a psychiatric evaluation. The patient describes chiefly anxious symptoms both generalized and panicky and I have given her a mixed anxiety disorder diagnosis. There is also possibly some degree of mild depression and a possible history of hypomania. I have given her a mood disorder diagnosis with rule out unipolar and bipolar mild depression. I have discussed the patient's options regarding psychopharmacology, but she is declining any psychotropics at this time. I would say that if the patient is evaluated and determined to have a seizure disorder in need of an antiepileptic, I might prefer one with mood stabilizing properties such as Depakote or Tegretol or Lamictal if her liver can tolerate it and would dis-prefer Keppra as this can exacerbate dysphoria in patients with underlying mood disorders. The patient is not suicidal or homicidal. She is attending to her basic needs. She does not meet Navarro Act criteria at this time nor does she require inpatient psychiatric stabilization. She would likely benefit from outpatient psychiatric followup and we should refer her for this on discharge. I have counseled the patient regarding warning signs for need to return to psychiatric emergency room as part of a general safety plan. I provided the patient with my card should she wish to discuss medication options further. Otherwise I have no specific recommendations at this time. Thank you very much for this consultation. Please call or page [phone] with questions. Otherwise I will sign off for now. Senait VALLES /10:48 AM /11:45 AM LISBETH
[2017-01-17 16:00] VITALS: BP 141/92; PULSE 73; RESP 18; TEMP 97.7; O2SAT 97
[2017-01-17 20:00] VITALS: BP 144/93; PULSE 88; PULSE 93; RESP 18; TEMP 97.2; O2SAT 97
[2017-01-18] VITALS: BP 134/87; PULSE 75; RESP 18; TEMP 95.8; O2SAT 98
[2017-01-18] MEDS: MORPHINE SULFATE 4 MG/ML INJ IV PUSH PRN ×6 (00:57→22:16)
[2017-01-18 04:00] VITALS: BP 141/95; PULSE 57; RESP 18; TEMP 96.4; O2SAT 100
[2017-01-18 07:32] LABS: AUTOMATED NEUTROPHIL # 1.6 TH/MM3 (1.8-7.7); BASOPHIL % 1.2 % (0.0-2.0); EOSINOPHIL # 0.3 TH/MM3 (0-0.4); EOSINOPHIL % 7.6 % (0.0-4.0); HEMATOCRIT 38.1 % (35.0-46.0); HEMO FLAGS DIFF FINAL; LYMPH % 36.5 % (9.0-44.0); LYMPHOCYTE # 1.4 TH/MM3 (1.0-4.8); MEAN CELL VOLUME 86.2 FL (80.0-100.0); MEAN CORPUSCULAR HGB CONC 32.5 % (32.0-36.0); MONO % 14.9 % (0.0-8.0); NEUT % 39.8 % (16.0-70.0); PLATELET COUNT 209 TH/MM3 (150-450); RED BLOOD COUNT 4.43 MIL/MM3 (4.00-5.30); RED CELL DISTRIBUTION WIDTH 13.4 % (11.6-17.2); WHITE BLOOD COUNT 3.9 TH/MM3 (4.0-11.0)
[2017-01-18 07:57] LABS: ALKALINE PHOSPHATASE 103 U/L (45-117); ALT (GPT) 149 U/L (10-53); ANION GAP 7 MEQ/L (5-15); AST (GOT) 107 U/L (15-37); BICARBONATE 31.5 MEQ/L (21.0-32.0); BLOOD UREA NITROGEN 7 MG/DL (7-18); CHLORIDE 108 MEQ/L (98-107); GLOMERULAR FILTRATION RATE 86 ML/MIN (>89); POTASSIUM 4.3 MEQ/L (3.5-5.1); SODIUM (NA) 146 MEQ/L (136-145); TOTAL BILIRUBIN ADULT 0.4 MG/DL (0.2-1.0)
[2017-01-18 08:00] VITALS: BP 141/90; PULSE 65; PULSE 78; RESP 21; TEMP 97.6; O2SAT 100
[2017-01-18] MEDS: SODIUM CHLORIDE 0.9% FLUSH 10 ML FLUSH IV FLUSH SCH ×2 (08:37→20:06)
[2017-01-18] MEDS: ONDANSETRON HCL 4 MG/2 ML VIAL IV PUSH PRN ×2 (08:58→18:13)
[2017-01-18] MEDS: ALPRAZolam 1 MG TAB PO PRN ×2 (08:58→20:00)
[2017-01-18] MEDS ORDERED: HYDR-3535 PO (10:29)
[2017-01-18] MEDS ORDERED: XANA1TAB2 PO (10:29)
--- NOTE | 2017-01-18 11:11 | HHI.PR ---
Subjective History of Present Illness Patient right shoulder pain and mild chest discomfort...better. no fever/ chills d/w RN Ailyn at bed side. deny any suicidal ideation intent and plan c/o headache check CT Brain Stat Review of Systems Constitutional Constitutional: Fatigue Neurologic Neurologic: Headache Vitals/Results Intake & Output 01/17/17 01/17/17 01/18/17 15:00 23:00 07:00 Intake Total 200 ml 420 ml Balance 200 ml 420 ml Intake Oral 200 ml 420 ml # Voids 1 2 # Bowel Movements 0 0 Vital Signs Vital Signs Date Time Temp Pulse Resp B/P Pulse Ox O2 Delivery O2 Flow Rate FiO2 01/18/17 08:00 97.6 78 21 141/90 100 01/18/17 04:00 96.4 57 18 141/95 100 01/18/17 00:00 95.8 75 18 134/87 98 01/17/17 20:00 97.2 88 18 144/93 97 01/17/17 20:00 93 01/17/17 16:00 97.7 73 18 141/92 97 01/17/17 12:00 98.2 79 18 136/85 97 CBC/BMP: 01/18/17 0620 01/18/17 0620 Lab Results Laboratory Tests Test 01/18/17 06:20 White Blood Count 3.9 TH/MM3 Red Blood Count 4.43 MIL/MM3 Hemoglobin 12.4 GM/DL Hematocrit 38.1 % Mean Corpuscular Volume 86.2 FL Mean Corpuscular Hemoglobin 28.0 PG Mean Corpuscular Hemoglobin 32.5 % Concent Red Cell Distribution Width 13.4 % Platelet Count 209 TH/MM3 Mean Platelet Volume 8.0 FL Neutrophils (%) (Auto) 39.8 % Lymphocytes (%) (Auto) 36.5 % Monocytes (%) (Auto) 14.9 % Eosinophils (%) (Auto) 7.6 % Basophils (%) (Auto) 1.2 % Neutrophils # (Auto) 1.6 TH/MM3 Lymphocytes # (Auto) 1.4 TH/MM3 Monocytes # (Auto) 0.6 TH/MM3 Eosinophils # (Auto) 0.3 TH/MM3 Basophils # (Auto) 0.0 TH/MM3 CBC Comment DIFF FINAL Differential Comment Sodium Level 146 MEQ/L Potassium Level 4.3 MEQ/L Chloride Level 108 MEQ/L Carbon Dioxide Level 31.5 MEQ/L Anion Gap 7 MEQ/L Blood Urea Nitrogen 7 MG/DL Creatinine 0.71 MG/DL Estimat Glomerular Filtration 86 ML/MIN Rate Random Glucose 102 MG/DL Calcium Level 8.5 MG/DL Total Bilirubin 0.4 MG/DL Aspartate Amino Transf 107 U/L (AST/SGOT) Alanine Aminotransferase 149 U/L (ALT/SGPT) Alkaline Phosphatase 103 U/L Total Protein 6.4 GM/DL Albumin 3.2 GM/DL Physical Exam General General Appearance: No Acute Distress, Comfortable Eyes Eye Exam: Pupils Equal, Pupils Reactive, Sclera White, Extraocular Movement Intact Throat Throat Exam: Oral Mucosa [place] & Moist, Oral Pharynx Normal Neck Neck Exam: Neck Supple, Trachea Midline Pulmonary Resp Exam: Clear Bilaterally, Breath Sounds Equal, No Distress Cardiology CV Exam: Regular, Normal Sinus Rhythm Gastrointestinal/Abdomen GI Exam: Soft, Non-Tender, Bowel Sounds Present Musculoskeletal MS Exam: Normal Tone Integumentary Skin Exam: Clear, Warm, Dry Extremeties Extremities Exam: No Edema Neurologic Neuro Exam: Alert, Awake, Oriented, Speech Clear, Moving All Extremities, No Focal Deficits VTE Prophylaxis VTE Prophylaxis Meds: Heparin PUD Prophylasis PUD Prophylaxis: Protonix Assessment/Plan Problem List: (1) Chest pain (2) Coronary artery disease (3) Hypertension (4) History of seizure Assessment/Plan Assessment and Plan Chest pain, typical for female: Patient with chest discomfort left sternal border radiating to the right shoulder. Patient has have increased risk factors include age, hypertension, hyperlipidemia, coronary artery disease, family history of heart disease. Patient has been ruled out for any acute coronary event with serial cardiac enzymes that are negative, serial EKGs shows sinus rhythm without any changes. have been evaluated multiple times in the past for chest pain Further workup per patient progress. Seizure per patient: No active seizure was witnessed by medical staff. Nursing staff notified me that the patient called the nursing station and told them that she had a seizure. Upon evaluation and it appears the patient lost bladder control. No loss of bowel control. No post ictal state. Telemetry was reviewed which did not indicate any acute abnormality. on seizure precautions, Ativan as needed for seizures. I notified her that she was in the chest pain center to have cardiac evaluation and if the workup is negative that she would likely be discharged home and would need to have workup done by her primary medical doctor since she has not had any active seizures. Hypothyroidism: Resume home medications. TSH 0.259 History of hypertension, hyperlipidemia, coronary artery disease, bipolar disorder, fibromyalgia, history myocardial infarction, history of recurrent pancreatitis: Patient is not on any active medications for these conditions. It does appear the patient does have a significant psychological condition with history of bipolar. Records indicate patient has have history of suicidal attempt with drug overdose. but patient deny any suicidal / homicidal ideation intent and plan. DVT prevention: Subcutaneous Lovenox ok to dc home today after ct brain if within normal limits. f/u with PCP and cardiology and Neurology 2-3 days. condition at discharge good. Activity as tolerated Diet cardiac medicine see discharge medicine list. Discussed Condition with: Patient Problem Qualifiers (1) Chest pain: Qualified Code: R07.9 - Chest pain, unspecified type (2) Coronary artery disease: (3) Hypertension: Qualified Code: I15.9 - Secondary hypertension Torin Milian MD Jan 18, 2017 11:11
--- NOTE | 2017-01-18 11:53 | RADHPO ---
EXAM DATE/TIME: 01/18/2017 11:25 [facility] COMPARISON: CT BRAIN W/O CONTRAST, June 02, 2016, 14:28. INDICATIONS : Left side cephalgia. RADIATION DOSE: 65.04 CTDIvol (mGy) MEDICAL HISTORY : Cardiovascular disease. Cardiovascular disease SURGICAL HISTORY : None. ENCOUNTER: Initial ACUITY: 1 day PAIN SCALE: 4/10 LOCATION: Left cranial TECHNIQUE: Multiple contiguous axial images were obtained of the head. Using automated exposure control and adjustment of the mA and/or kV according to patient size, radiation dose was kept as low as reasonably achievable to obtain optimal diagnostic quality images. FINDINGS: CEREBRUM: The ventricles are normal for age. No evidence of midline shift, mass lesion, hemorrha ge or acute infarction. No extra-axial fluid collections are seen. POSTERIOR FOSSA: The cerebellum and brainstem are intact. The 4th ventricle is midline. The cer ebellopontine angle is unremarkable. EXTRACRANIAL: The visualized portion of the orbits is intact. SKULL: The calvaria is intact. No evidence of skull fracture. CONCLUSION: Negative for acute process. Mat Contreras MD FACR on January 18, 2017 at 11:51 Board Certified Radiologist. This report was verified electronically.
[2017-01-18 12:00] VITALS: BP 136/88; PULSE 90; RESP 18; TEMP 98.6; O2SAT 98
[2017-01-18] MEDS: ACETAMINOPHEN/HYDROcodone 325 MG/10 MG TAB PO PRN ×2 (15:32→19:56)
[2017-01-18 16:00] VITALS: BP 141/87; PULSE 91; RESP 18; TEMP 98.2; O2SAT 97
[2017-01-18 20:00] VITALS: BP 133/87; PULSE 73; PULSE 77; RESP 20; TEMP 99; O2SAT 99
[2017-01-18] MEDS: SODIUM CHLORIDE 0.9% FLUSH 10 ML FLUSH PRN (22:16)
[2017-01-19] VITALS: BP 145/99; PULSE 74; RESP 20; TEMP 99.1; O2SAT 96
[2017-01-19] MEDS: SODIUM CHLORIDE 0.9% FLUSH 10 ML FLUSH PRN ×2 (02:22→06:20)
[2017-01-19] MEDS: MORPHINE SULFATE 4 MG/ML INJ IV PUSH PRN ×3 (02:22→10:34)
[2017-01-19] MEDS: ACETAMINOPHEN/HYDROcodone 325 MG/10 MG TAB PO PRN ×3 (03:21→13:16)
[2017-01-19 04:00] VITALS: BP 123/77; PULSE 79; RESP 20; TEMP 98.3; O2SAT 95
[2017-01-19 08:00] VITALS: BP 119/81; PULSE 78; PULSE 84; RESP 18; TEMP 98; O2SAT 96
--- NOTE | 2017-01-19 08:08 | HHI.PR ---
Subjective History of Present Illness Patient right shoulder pain and mild chest discomfort...better. no fever/ chills d/w RN Kelvin at bed side. deny any suicidal ideation intent and plan headache better checked CT Brain nothing acute. ok to DC Home today. Review of Systems Constitutional Constitutional: Fatigue Neurologic Neurologic: Headache Vitals/Results Intake & Output 01/18/17 01/18/17 01/19/17 15:00 23:00 07:00 Intake Total 360 ml 90 ml Balance 360 ml 90 ml Intake Oral 360 ml 90 ml # Voids 4 3 1 # Bowel Movements 0 0 Vital Signs Vital Signs Date Time Temp Pulse Resp B/P Pulse Ox O2 Delivery O2 Flow Rate FiO2 01/19/17 04:00 98.3 79 20 123/77 95 01/19/17 00:00 99.1 74 20 145/99 96 01/18/17 20:00 73 01/18/17 20:00 99.0 77 20 133/87 99 01/18/17 16:00 98.2 91 18 141/87 97 01/18/17 12:00 98.6 90 18 136/88 98 CBC/BMP: 01/18/17 0620 01/18/17 0620 Physical Exam General General Appearance: No Acute Distress, Comfortable Eyes Eye Exam: Pupils Equal, Pupils Reactive, Sclera White, Extraocular Movement Intact Throat Throat Exam: Oral Mucosa [place] & Moist, Oral Pharynx Normal Neck Neck Exam: Neck Supple, Trachea Midline Pulmonary Resp Exam: Clear Bilaterally, Breath Sounds Equal, No Distress Cardiology CV Exam: Regular, Normal Sinus Rhythm Gastrointestinal/Abdomen GI Exam: Soft, Non-Tender, Bowel Sounds Present Musculoskeletal MS Exam: Normal Tone Integumentary Skin Exam: Clear, Warm, Dry Extremeties Extremities Exam: No Edema Neurologic Neuro Exam: Alert, Awake, Oriented, Speech Clear, Moving All Extremities, No Focal Deficits VTE Prophylaxis VTE Prophylaxis Meds: Heparin PUD Prophylasis PUD Prophylaxis: Protonix Assessment/Plan Problem List: (1) Chest pain (2) Coronary artery disease (3) Hypertension (4) History of seizure Assessment/Plan Assessment and Plan Chest pain, typical for female: Patient with chest discomfort left sternal border radiating to the right shoulder. Patient has have increased risk factors include age, hypertension, hyperlipidemia, coronary artery disease, family history of heart disease. Patient has been ruled out for any acute coronary event with serial cardiac enzymes that are negative, serial EKGs shows sinus rhythm without any changes. have been evaluated multiple times in the past for chest pain Further workup per patient progress. Seizure per patient: No active seizure was witnessed by medical staff. Nursing staff notified me that the patient called the nursing station and told them that she had a seizure. Upon evaluation and it appears the patient lost bladder control. No loss of bowel control. No post ictal state. Telemetry was reviewed which did not indicate any acute abnormality. on seizure precautions, Ativan as needed for seizures. I notified her that she was in the chest pain center to have cardiac evaluation and if the workup is negative that she would likely be discharged home and would need to have workup done by her primary medical doctor since she has not had any active seizures. Hypothyroidism: Resume home medications. TSH 0.259 History of hypertension, hyperlipidemia, coronary artery disease, bipolar disorder, fibromyalgia, history myocardial infarction, history of recurrent pancreatitis: Patient is not on any active medications for these conditions. It does appear the patient does have a significant psychological condition with history of bipolar. Records indicate patient has have history of suicidal attempt with drug overdose. but patient deny any suicidal / homicidal ideation intent and plan. DVT prevention: Subcutaneous Lovenox ok to dc home today f/u with PCP and cardiology and Neurology 2-3 days. condition at discharge good. Activity as tolerated Diet cardiac medicine see discharge medicine list. Discussed Condition with: Patient Problem Qualifiers (1) Chest pain: Qualified Code: R07.9 - Chest pain, unspecified type (2) Coronary artery disease: (3) Hypertension: Qualified Code: I15.9 - Secondary hypertension Torin Milian MD Jan 19, 2017 08:08
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
[2017-01-19] MEDS: SODIUM CHLORIDE 0.9% FLUSH 10 ML FLUSH IV FLUSH SCH (09:00)
[2017-01-19] MEDS ORDERED: PERC7.5T13 PO (13:30)
--- NOTE | 2017-02-01 12:33 | MD ---
cc: TORIN TARIQ MD ADMISSION DATE: 01/16/2017 DISCHARGE DATE: 01/19/2017 Okay to discharge patient. CONDITION AT THE TIME OF DISCHARGE: Satisfactory. ACTIVITY: As tolerated. DIET: Cardiac diet ALLERGIES NO KNOWN DRUG ALLERGIES. DISCHARGE MEDICATIONS Include: 1. Xanax 1 mg p.o. b.i.d. p.r.n. anxiety. 2. Oxycodone 7.5 / 325 p.o. q.4 h p.r.n. pain #30. 3. Levothyroxine 125 mcg p.o. daily. The patient advised to follow with PCP and cardiology in one week. I got a pharmacy call stating that the patient had taken 120 of Percocet five days before, and I cancelled my Percocet prescription. ADMISSION DIAGNOSIS Chest pain. DISCHARGE DIAGNOSIS 1. Chest pain resolved. 2. Acute coronary syndrome ruled out with serial cardiac enzymes. 3. History of coronary disease. 4. Hypertension 5. History of pseudoseizure HOSPITAL COURSE This is a 51-year-old female who had multiple admissions to the hospital, narcotic seeking behavior and benzodiazepines seeking behavior, always on pain medicine during the hospital stay and at the time of discharge. The pharmacy called me and told me she got 120 Percocet a few days before. Patient complaining of chest discomfort and also right shoulder pain which is totally resolved. Cardiogram came back negative. The patient had a pseudoseizure during hospital stay. The patient has hypothyroidism, takes thyroid medication. The patient also has a history of hypertension, hyperlipidemia, bipolar disorder, fibromyalgia, history of recurrent pancreatitis. The patient is discharged in satisfactory condition. Further details in the medical record. Torin Tariq MD EA/JENNI /3:51 PM /12:27 PM
== END 2017-01-19 15:16 | disposition home or self-care (01) | DRG 313 ==
LOC: PHED 18:46 → PHEDA 21:11 → PHEDH 01-16 01:11 → PH3A 01-16 07:42 → OBSVTOIN 01-16 10:45
PROVIDERS: ADMIT Family Medicine; ATTEND Family Medicine
DX: R07.89 Other chest pain (principal); I25.10 Atherosclerotic heart disease of native coronary artery without angina pectoris; I25.2 Old myocardial infarction; K74.60 Unspecified cirrhosis of liver; R56.9 Unspecified convulsions; K86.1 Other chronic pancreatitis; K86.81 Exocrine pancreatic insufficiency; E03.9 Hypothyroidism, unspecified; M25.511 Pain in right shoulder; E78.5 Hyperlipidemia, unspecified; I10 Essential (primary) hypertension; M79.7 Fibromyalgia; Z86.73 Personal history of transient ischemic attack (TIA), and cerebral infarction without residual deficits; Z95.5 Presence of coronary angioplasty implant and graft; F31.9 Bipolar disorder, unspecified; Z85.850 Personal history of malignant neoplasm of thyroid
CPT/HCPCS: 70450; 71010; 80048; 80053; 80076; 82550; 83690; 84443; 84484; 85025; 93005; 96374; 96375; 96376; G0378; J2060; J2270; J2405

== ENCOUNTER 2017-06-27 10:06 | Emergency (ER) | payer SELFPAY ==
[~2017-06-27] VITALS: Ht 172.7 cm; Wt 72.0 kg
[~2017-06-27 10:06] MED LIST changes: -ADVI200C5 PO; -GINS250C2 PO; -LYRI75CA PO; -PERC5TAB12 PO; +PERC7.5T13 PO; -PROM1SUP7 RECTAL; -PROM25TA5 PO; -ZOFR8TAB PO
[2017-06-27 10:15] VITALS: BP 124/88; PULSE 78; RESP 16; TEMP 98.7; O2SAT 99
[2017-06-27] MEDS ORDERED: KETOROLAC TROMETHAMINE 30 MG/ML (IVP) VIAL IVP ONE (10:30)
[2017-06-27] MEDS ORDERED: SODIUM CHLORIDE 0.9% FLUSH 10 ML FLUSH IV FLUSH PRN (10:30)
[2017-06-27] MEDS ORDERED: ONDANSETRON HCL 4 MG/2 ML VIAL IVP ONE (10:30)
--- NOTE | 2017-06-27 10:33 | PD ---
HPI Chief Complaint: GI Complaint Time Seen by Provider: 10:18 Travel History International Travel<30 days: No Contact w/Intl Traveler<30days: No Traveled to known affect area: No History of Present Illness HPI The patient was seen and examined in the presence of the nurse. At no point in time was I in the room without the nurse present. This patient complains of abdominal pain. Location is right upper quadrant. This is a chronic intermittent problem the patient's had for years. She has no gallbladder. She is never been a drinker. She says that she gets pancreatitis but doesn't know why. Denies fever. No vomiting or diarrhea. She's felt a bit nauseous. No alleviating factors. Duration 2 days. Patient goes to pain management and takes morphine and Lortab daily. PFSH Past Medical History Hx Anticoagulant Therapy: No Arthritis: Yes Asthma: No Autoimmune Disease: No Bipolar Disorder: Yes Anxiety: No Depression: Yes Heart Rhythm Problems: No Cancer: Yes (Thyroid) Cardiac Catheterization: Yes (X's 1, one stent) Cardiovascular Problems: Yes High Cholesterol: No Chemotherapy: Yes Chest Pain: Yes Congestive Heart Failure: No COPD: No Cerebrovascular Accident: Yes (2005, 2009) Coronary Artery Disease: Yes Diabetes: No Diminished Hearing: No Endocrine: Yes (CHRONIC PANCREATITIS) Gastrointestinal Disorders: Yes GERD: No Genitourinary: Yes Headaches: Yes (About once a month) Hepatitis: Yes (C) Hiatal Hernia: No Herniated Disk: Yes (L4, L5) Hypertension: Yes Immune Disorder: No Implanted Vascular Access Dvce: No Insomnia: Yes Kidney Stones: No Musculoskeletal: Yes Neurologic: Yes Psychiatric: No Reproductive: Yes Respiratory: No Immunizations Current: Yes Migraines: Yes Myocardial Infarction: Yes (2010) Pancreatitis: Yes Pneumonia: Yes Radiation Therapy: Yes (H/O) Renal Failure: No Seizures: Yes Shingles: Yes Sickle Cell Disease: No Sleep Apnea: No Thyroid Disease: Yes Ulcer: No PNEUMOCCOCAL Vaccine (Year): 2010 ?: Not Menopausal: Yes : 8 Para: 6 Miscarriage: 1 : 1 Ectopic : Yes (X's 2) Tubal Ligation: Yes Past Surgical History Abdominal Surgery: Yes AICD: No Appendectomy: Yes (1992) Arteriovenous Shunt: No Body Medical Devices: NONE PER PT Cardiac Surgery: Yes Section: Yes (X's 2) Cholecystectomy: Yes Coronary Artery Bypass Graft: No Coronary Stent: Yes (X's 1) Ear Surgery: No Endocrine Surgery: Yes Eye Surgery: No Genitourinary Surgery: Yes (Bladder) Gynecologic Surgery: Yes (Pelvic mesh) Hysterectomy: Yes Insulin Pump: No Joint Replacement: No Neurologic Surgery: Yes Oral Surgery: No Pacemaker: No Thoracic Surgery: No Tonsillectomy: Yes Other Surgery: Yes Social History Alcohol Use: No Tobacco Use: No Substance Use: No Allergies-Medications (Allergen,Severity, Reaction): Coded Allergies: diphenhydramine (Verified Adverse Reaction, Unknown, 06/27/17) Reported Meds & Prescriptions Reported Meds & Active Scripts Active Zofran (Ondansetron HCl) 4 Mg Tab 4 Mg PO Q6HR PRN Percocet (Oxycodone-Acetaminophen) 7.5-325 mg Tab 1 Tab PO Q4H PRN Xanax (Alprazolam) 1 Mg Tab 1 Mg PO BID PRN Reported Levothyroxine (Levothyroxine Sodium) 125 Mcg Tab 125 Mcg PO DAILY Review of Systems General / Constitutional: No: Fever Eyes: No: Visual changes HENT: No: Headaches Cardiovascular: No: Chest Pain or Discomfort Respiratory: No: Shortness of Breath Gastrointestinal: Positive: Nausea, Abdominal Pain Genitourinary: No: Dysuria Musculoskeletal: No: Pain Skin: No Rash Neurologic: No: Weakness Psychiatric: No: Depression Endocrine: No: Polydipsia Hematologic/Lymphatic: No: Easy Bruising Physical Exam Narrative GENERAL: Well-nourished, well-developed patient in no apparent distress. SKIN: Focused skin assessment reveals no rash and nodules. Skin is Warm and dry. HEAD: Atraumatic. Normocephalic. EYES: Pupils equal and round. No scleral icterus. No injection or drainage. ENT: No nasal bleeding or discharge. Mucous membranes pink and moist. NECK: Trachea midline. No JVD. CARDIOVASCULAR: Regular rate and rhythm. No murmur appreciated. RESPIRATORY: No accessory muscle use. Clear to auscultation. Breath sounds equal bilaterally. GASTROINTESTINAL: Abdomen soft, non-tender, nondistended. Hepatic and splenic margins not palpable. MUSCULOSKELETAL: No obvious deformities. No clubbing. No cyanosis. No edema. NEUROLOGICAL: Awake and alert. No obvious cranial nerve deficits. Motor grossly within normal limits. Normal speech. PSYCHIATRIC: Appropriate mood and affect; insight and judgment normal. Data Data Last Documented VS Vital Signs Date Time Temp Pulse Resp B/P (MAP) Pulse Ox O2 Delivery O2 Flow Rate FiO2 06/27/17 11:33 61 18 122/75 (91) 98 06/27/17 10:15 98.7 Orders Orders Complete Blood Count With Diff (06/27/17 10:28) Comprehensive Metabolic Panel (06/27/17 10:28) Lipase (06/27/17 10:28) Iv Access Insert/Monitor (06/27/17 10:28) Ondansetron Inj (Zofran Inj) (06/27/17 10:30) Sodium Chloride 0.9% Flush (Ns Flush) (06/27/17 10:30) Ketorolac Inj (Toradol Inj) (06/27/17 10:30) Morphine Inj (Morphine Inj) (06/27/17 11:45) Labs Laboratory Tests Test 06/27/17 10:30 White Blood Count 6.1 TH/MM3 Red Blood Count 4.24 MIL/MM3 Hemoglobin 12.3 GM/DL Hematocrit 37.0 % Mean Corpuscular Volume 87.3 FL Mean Corpuscular Hemoglobin 29.1 PG Mean Corpuscular Hemoglobin Concent 33.3 % Red Cell Distribution Width 14.8 % Platelet Count 229 TH/MM3 Mean Platelet Volume 7.3 FL Neutrophils (%) (Auto) 52.2 % Lymphocytes (%) (Auto) 35.6 % Monocytes (%) (Auto) 9.1 % Eosinophils (%) (Auto) 2.5 % Basophils (%) (Auto) 0.6 % Neutrophils # (Auto) 3.1 TH/MM3 Lymphocytes # (Auto) 2.2 TH/MM3 Monocytes # (Auto) 0.6 TH/MM3 Eosinophils # (Auto) 0.2 TH/MM3 Basophils # (Auto) 0.0 TH/MM3 CBC Comment DIFF FINAL Differential Comment Blood Urea Nitrogen 10 MG/DL Creatinine 0.97 MG/DL Random Glucose 79 MG/DL Total Protein 6.8 GM/DL Albumin 3.6 GM/DL Calcium Level 8.4 MG/DL Alkaline Phosphatase 84 U/L Aspartate Amino Transf (AST/SGOT) 48 U/L Alanine Aminotransferase (ALT/SGPT) 101 U/L Total Bilirubin 0.5 MG/DL Sodium Level 143 MEQ/L Potassium Level 3.5 MEQ/L Chloride Level 109 MEQ/L Carbon Dioxide Level 24.5 MEQ/L Anion Gap 10 MEQ/L Estimat Glomerular Filtration Rate 60 ML/MIN Lipase 800 U/L [facility] Medical Decision Making Medical Screen Exam Complete: Yes Emergency Medical Condition: Yes Medical Record Reviewed: Yes Differential Diagnosis Chronic pain syndrome, fibromyalgia, narcotic seeking behavior, pancreatitis Narrative Course I have reviewed the patient's electronic medical record. Patient is a frequent visitor for abdominal pain complaints. CT of abdomen from November 2016 was normal IV placed CBC is normal metabolic profile is normal LFT's are normal lipase is mildly elevated at 800 I gave her IV Zofran and IV Toradol Patient still having discomfort I gave her a dose of morphine Patient has a chronic intermittent pancreatitis and having a flare today. She has soft benign nontender abdomen and stable for outpatient follow-up. Recommended bowel rest with some clear liquids and advance as able. Zofran prescribed Diagnosis Primary Impression: Acute pancreatitis Qualified Codes: K85.90 - Acute pancreatitis without necrosis or infection, unspecified Additional Instructions: The patient was advised to follow up with their physician and return if they worsen. I have recommended clear liquids for 24 hours, then gradually advance as tolerated. Med/Other Pt SpecificInfo: Prescription(s) given Scripts Ondansetron (Zofran) 4 Mg Tab 4 MG PO Q6HR Y for NAUSEA OR VOMITING, #14 TAB 0 Refills Prov: Cuong Fulton MD 06/27/17 Disposition: 01 DISCHARGE HOME Condition: Stable Cuong Fulton MD Jun 27, 2017 10:33
[2017-06-27 10:38] LABS: AUTOMATED NEUTROPHIL # 3.1 TH/MM3 (1.8-7.7); BASOPHIL % 0.6 % (0.0-2.0); EOSINOPHIL # 0.2 TH/MM3 (0-0.4); EOSINOPHIL % 2.5 % (0.0-4.0); HEMO FLAGS DIFF FINAL; LYMPH % 35.6 % (9.0-44.0); LYMPHOCYTE # 2.2 TH/MM3 (1.0-4.8); MEAN CELL VOLUME 87.3 FL (80.0-100.0); MEAN CORPUSCULAR HEMOGLOBIN 29.1 PG (27.0-34.0); MEAN CORPUSCULAR HGB CONC 33.3 % (32.0-36.0); MONO % 9.1 % (0.0-8.0); NEUT % 52.2 % (16.0-70.0); PLATELET COUNT 229 TH/MM3 (150-450); RED BLOOD COUNT 4.24 MIL/MM3 (4.00-5.30); RED CELL DISTRIBUTION WIDTH 14.8 % (11.6-17.2); WHITE BLOOD COUNT 6.1 TH/MM3 (4.0-11.0)
[2017-06-27 10:47] LABS: CHLORIDE 109 MEQ/L (98-107); POTASSIUM 3.5 MEQ/L (3.5-5.1); SODIUM (NA) 143 MEQ/L (136-145)
[2017-06-27 10:53] LABS: ANION GAP 10 MEQ/L (5-15); BICARBONATE 24.5 MEQ/L (21.0-32.0); BLOOD UREA NITROGEN 10 MG/DL (7-18)
[2017-06-27 10:56] LABS: AST (GOT) 48 U/L (15-37); GLOMERULAR FILTRATION RATE 60 ML/MIN (>89)
[2017-06-27 10:57] LABS: TOTAL BILIRUBIN ADULT 0.5 MG/DL (0.2-1.0)
[2017-06-27 10:58] LABS: ALT (GPT) 101 U/L (10-53)
[2017-06-27 10:59] LABS: ALKALINE PHOSPHATASE 84 U/L (45-117)
[2017-06-27 11:33] VITALS: BP 122/75; PULSE 61; RESP 18; O2SAT 98
[2017-06-27] MEDS ORDERED: ZOFR4TAB PO (11:39)
[2017-06-27] MEDS ORDERED: MORPHINE SULFATE 4 MG/ML INJ IV PUSH ONE (11:45)
== END 2017-06-27 12:20 | disposition home or self-care (01) ==
LOC: PHED 10:06
DX: K85.90 Acute pancreatitis without necrosis or infection, unspecified (principal); I10 Essential (primary) hypertension; I25.10 Atherosclerotic heart disease of native coronary artery without angina pectoris; I25.2 Old myocardial infarction; Z95.5 Presence of coronary angioplasty implant and graft; Z86.73 Personal history of transient ischemic attack (TIA), and cerebral infarction without residual deficits
CPT/HCPCS: 80053; 83690; 85025; 96374; 96375; 99284; J1885; J2270; J2405

== ENCOUNTER 2017-06-30 06:55 | Emergency (ER) | payer SELFPAY ==
[2017-06-30] VITALS (7 sets, daily range): BP systolic 127–151; BP diastolic 76–93; PULSE 67–78; RESP 18–20; TEMP 98.3; O2SAT 94–99
[~2017-06-30] VITALS: Ht 172.7 cm; Wt 74.7 kg
[~2017-06-30 06:55] MED LIST changes: +ZOFR4TAB PO
[2017-06-30] MEDS ORDERED: SODIUM CHLOR 0.9% 1000 ML INJ 1,000 ML IV SCH ×2 (10:43)
[2017-06-30] MEDS ORDERED: ONDANSETRON HCL 4 MG/2 ML VIAL IVP ONE (10:45)
[2017-06-30] MEDS ORDERED: PANTOPRAZOLE SODIUM 40 MG VIAL IVP ONE (10:45)
[2017-06-30] MEDS ORDERED: SODIUM CHLORIDE 0.9% FLUSH 10 ML FLUSH IV FLUSH PRN (10:45)
[2017-06-30] MEDS ORDERED: HYDROmorphone HCL PF 2 MG/ML VIAL IVS ONE (10:45)
--- NOTE | 2017-06-30 10:49 | PD ---
HPI Chief Complaint: Abdominal Pain Time Seen by Provider: 10:34 Travel History International Travel<30 days: No Contact w/Intl Traveler<30days: No Traveled to known affect area: No History of Present Illness HPI This 52-year-old female is complaining of epigastric pain and vomiting. She gets episodes of recurrent pancreatitis. She had a cholecystectomy 2 years ago. She has never drank. She has been having pain for several days. She was seen here 3 days ago and at that time her lipase was 800. She was given prescription for Percocet but has not been able to hold that down. She says she 's been vomiting recurrently and also having diarrhea. She says the pain is more severe now than it was before. She has a history of a fractured back in 1998 and has been on morphine for the last 3 years. She goes to pain management. PFSH Past Medical History Hx Anticoagulant Therapy: No Arthritis: Yes Asthma: No Autoimmune Disease: No Bipolar Disorder: Yes Anxiety: No Depression: Yes Heart Rhythm Problems: No Cancer: Yes (Thyroid) Cardiac Catheterization: Yes (X's 1, one stent) Cardiovascular Problems: Yes High Cholesterol: No Chemotherapy: Yes Chest Pain: Yes Congestive Heart Failure: No COPD: No Cerebrovascular Accident: Yes (2005, 2009) Coronary Artery Disease: Yes Diabetes: No Diminished Hearing: No Endocrine: Yes (CHRONIC PANCREATITIS) Gastrointestinal Disorders: Yes GERD: No Genitourinary: Yes Headaches: Yes (About once a month) Hepatitis: Yes (C) Hiatal Hernia: No Herniated Disk: Yes (L4, L5) Hypertension: Yes Immune Disorder: No Implanted Vascular Access Dvce: No Insomnia: Yes Kidney Stones: No Musculoskeletal: Yes Neurologic: Yes Psychiatric: No Reproductive: Yes Respiratory: No Immunizations Current: Yes Migraines: Yes Myocardial Infarction: Yes (2010) Pancreatitis: Yes Pneumonia: Yes Radiation Therapy: Yes (H/O) Renal Failure: No Seizures: Yes Shingles: Yes Sickle Cell Disease: No Sleep Apnea: No Thyroid Disease: Yes Ulcer: No PNEUMOCCOCAL Vaccine (Year): 2010 ?: Not Menopausal: Yes : 8 Para: 6 Miscarriage: 1 : 1 Ectopic : Yes (X's 2) Tubal Ligation: Yes Past Surgical History Abdominal Surgery: Yes AICD: No Appendectomy: Yes (1992) Arteriovenous Shunt: No Body Medical Devices: NONE PER PT Cardiac Surgery: Yes Section: Yes (X's 2) Cholecystectomy: Yes Coronary Artery Bypass Graft: No Coronary Stent: Yes (X's 1) Ear Surgery: No Endocrine Surgery: Yes Eye Surgery: No Genitourinary Surgery: Yes (Bladder) Gynecologic Surgery: Yes (Pelvic mesh) Hysterectomy: Yes Insulin Pump: No Joint Replacement: No Neurologic Surgery: Yes Oral Surgery: No Pacemaker: No Thoracic Surgery: No Tonsillectomy: Yes Other Surgery: Yes Social History Alcohol Use: No Tobacco Use: No Substance Use: No Allergies-Medications (Allergen,Severity, Reaction): Coded Allergies: diphenhydramine (Verified Adverse Reaction, Unknown, 06/30/17) Reported Meds & Prescriptions Reported Meds & Active Scripts Active Zofran (Ondansetron HCl) 4 Mg Tab 4 Mg PO Q6HR PRN Percocet (Oxycodone-Acetaminophen) 7.5-325 mg Tab 1 Tab PO Q4H PRN Xanax (Alprazolam) 1 Mg Tab 1 Mg PO BID PRN Reported Levothyroxine (Levothyroxine Sodium) 125 Mcg Tab 125 Mcg PO DAILY Review of Systems General / Constitutional: No: Fever, Chills Eyes: No: Diploplia, Blurred Vision HENT: No: Headaches, Vertigo Cardiovascular: No: Chest Pain or Discomfort, Palpitations Respiratory: No: Cough, Shortness of Breath Gastrointestinal: Positive: Nausea, Vomiting, Diarrhea, Abdominal Pain Genitourinary: No: Urgency, Frequency Musculoskeletal: No: Myalgias, Arthralgias Skin: No Rash Neurologic: No: Weakness Physical Exam Narrative GENERAL: Well-developed female SKIN: Focused skin assessment warm/dry. HEAD: Atraumatic. Normocephalic. EYES: Pupils equal and round. No scleral icterus. No injection or drainage. ENT: No nasal bleeding or discharge. Mucous membranes pink and moist. NECK: Trachea midline. No JVD. CARDIOVASCULAR: Regular rate and rhythm. No murmur appreciated. RESPIRATORY: No accessory muscle use. Clear to auscultation. Breath sounds equal bilaterally. GASTROINTESTINAL: Abdomen soft, there is tenderness across the upper abdominal area, nondistended. Hepatic and splenic margins not palpable. MUSCULOSKELETAL: No obvious deformities. No clubbing. No cyanosis. No edema. NEUROLOGICAL: Awake and alert. No obvious cranial nerve deficits. Motor grossly within normal limits. Normal speech. PSYCHIATRIC: Appropriate mood and affect; insight and judgment normal. Data Data Last Documented VS Vital Signs Date Time Temp Pulse Resp B/P (MAP) Pulse Ox O2 Delivery O2 Flow Rate FiO2 06/30/17 11:50 68 20 127/85 (99) 96 06/30/17 07:09 98.3 Room Air Orders Orders Complete Blood Count With Diff (06/30/17 10:43) Comprehensive Metabolic Panel (06/30/17 10:43) Lipase (06/30/17 10:43) Urinalysis - C+S If Indicated (06/30/17 10:43) Ct Abd/Pel W Iv Contrast(Rout) (06/30/17 10:43) Iv Access Insert/Monitor (06/30/17 10:43) Ecg Monitoring (06/30/17 10:43) Oximetry (06/30/17 10:43) Hydromorphone Pf Inj (Dilaudid Pf Inj) (06/30/17 10:45) Ondansetron Inj (Zofran Inj) (06/30/17 10:45) Pantoprazole Inj (Protonix Inj) (06/30/17 10:45) Sodium Chlor 0.9% 1000 Ml Inj (Ns 1000 M (06/30/17 10:43) Sodium Chlor 0.9% 1000 Ml Inj (Ns 1000 M (06/30/17 10:43) Sodium Chloride 0.9% Flush (Ns Flush) (06/30/17 10:45) Iohexol 350 Inj (Omnipaque 350 Inj) (06/30/17 12:01) Hydromorphone Pf Inj (Dilaudid Pf Inj) (06/30/17 12:45) Ondansetron Inj (Zofran Inj) (06/30/17 12:45) Sodium Chlor 0.9% 1000 Ml Inj (Ns 1000 M (06/30/17 12:45) Labs Laboratory Tests Test 06/30/17 10:50 06/30/17 11:50 White Blood Count 6.7 TH/MM3 Red Blood Count 4.38 MIL/MM3 Hemoglobin 12.7 GM/DL Hematocrit 38.7 % Mean Corpuscular Volume 88.2 FL Mean Corpuscular Hemoglobin 29.0 PG Mean Corpuscular Hemoglobin Concent 32.8 % Red Cell Distribution Width 14.7 % Platelet Count 217 TH/MM3 Mean Platelet Volume 8.0 FL Neutrophils (%) (Auto) 61.2 % Lymphocytes (%) (Auto) 28.4 % Monocytes (%) (Auto) 5.9 % Eosinophils (%) (Auto) 3.9 % Basophils (%) (Auto) 0.6 % Neutrophils # (Auto) 4.1 TH/MM3 Lymphocytes # (Auto) 1.9 TH/MM3 Monocytes # (Auto) 0.4 TH/MM3 Eosinophils # (Auto) 0.3 TH/MM3 Basophils # (Auto) 0.0 TH/MM3 CBC Comment AUTO DIFF Differential Comment AUTO DIFF CONFIRMED Blood Urea Nitrogen 9 MG/DL Creatinine 0.94 MG/DL Random Glucose 126 MG/DL Total Protein 6.9 GM/DL Albumin 3.5 GM/DL Calcium Level 8.2 MG/DL Alkaline Phosphatase 88 U/L Aspartate Amino Transf (AST/SGOT) 50 U/L Alanine Aminotransferase (ALT/SGPT) 98 U/L Total Bilirubin 0.4 MG/DL Sodium Level 141 MEQ/L Potassium Level 3.8 MEQ/L Chloride Level 106 MEQ/L Carbon Dioxide Level 26.8 MEQ/L Anion Gap 8 MEQ/L Estimat Glomerular Filtration Rate 62 ML/MIN Lipase 688 U/L Urine Collection Type CLEAN CATCH Urine Color YELLOW Urine Turbidity CLEAR Urine pH 6.0 Urine Specific [place] 1.010 Urine Protein NEG mg/dL Urine Glucose (UA) NEG mg/dL Urine Ketones NEG mg/dL Urine Occult Blood NEG Urine Nitrite NEG Urine Bilirubin NEG Urine Leukocyte Esterase MOD Urine WBC 3-5 /hpf Urine Squamous Epithelial Cells 0-5 /hpf Microscopic Urinalysis Comment CULT NOT INDICATED Urine Collection Time 11:50 MDM Medical Decision Making Medical Screen Exam Complete: Yes Emergency Medical Condition: Yes Medical Record Reviewed: Yes Differential Diagnosis Differential includes pancreatitis, gastritis, drug-seeking behavior Narrative Course Patient has been given IV fluids, Zofran and Dilaudid. She reports minimal response. Her lipase today is actually less than it was a few days ago. CT scan does not reveal an etiology for pain. Patient reports to me that she has been a run out of her morphine tomorrow. Some of her symptoms could be related to withdrawal related. I will prescribe some Percocet for her and some Compazine. Diagnosis Primary Impression: Recurrent pancreatitis Scripts Prochlorperazine Maleate (Prochlorperazine Maleate) 10 Mg Tab 10 MG PO Q6H Y for NAUSEA OR VOMITING for 10 Days, TAB 0 Refills Prov: Kan Yao MD 06/30/17 Oxycodone-Acetaminophen (Percocet) 10-325 mg Tab 1 TAB PO Q4H Y for PAIN, #20 TAB 0 Refills Prov: Kan Yao MD 06/30/17 Disposition: 01 DISCHARGE HOME Condition: Stable Kan Yao MD Jun 30, 2017 10:49
[2017-06-30 10:59] LABS: AUTOMATED NEUTROPHIL # 4.1 TH/MM3 (1.8-7.7); BASOPHIL % 0.6 % (0.0-2.0); EOSINOPHIL # 0.3 TH/MM3 (0-0.4); EOSINOPHIL % 3.9 % (0.0-4.0); HEMATOCRIT 38.7 % (35.0-46.0); LYMPH % 28.4 % (9.0-44.0); LYMPHOCYTE # 1.9 TH/MM3 (1.0-4.8); MEAN CELL VOLUME 88.2 FL (80.0-100.0); MEAN CORPUSCULAR HGB CONC 32.8 % (32.0-36.0); MONO % 5.9 % (0.0-8.0); NEUT % 61.2 % (16.0-70.0); PLATELET COUNT 217 TH/MM3 (150-450); RED BLOOD COUNT 4.38 MIL/MM3 (4.00-5.30); RED CELL DISTRIBUTION WIDTH 14.7 % (11.6-17.2); WHITE BLOOD COUNT 6.7 TH/MM3 (4.0-11.0)
[2017-06-30 11:14] LABS: CHLORIDE 106 MEQ/L (98-107); POTASSIUM 3.8 MEQ/L (3.5-5.1); SODIUM (NA) 141 MEQ/L (136-145)
[2017-06-30 11:15] LABS: HEMO FLAGS AUTO DIFF
[2017-06-30 11:18] LABS: ANION GAP 8 MEQ/L (5-15); BICARBONATE 26.8 MEQ/L (21.0-32.0); BLOOD UREA NITROGEN 9 MG/DL (7-18)
[2017-06-30 11:21] LABS: ALT (GPT) 98 U/L (10-53); AST (GOT) 50 U/L (15-37); GLOMERULAR FILTRATION RATE 62 ML/MIN (>89)
[2017-06-30 11:22] LABS: TOTAL BILIRUBIN ADULT 0.4 MG/DL (0.2-1.0)
[2017-06-30 11:23] LABS: ALKALINE PHOSPHATASE 88 U/L (45-117)
[2017-06-30 11:57] LABS: BLOOD, URINE NEG (NEG); GLUCOSE,URINE NEG (NEG); KETONE, URINE NEG (NEG); NITRITE,URINE NEG (NEG)
[2017-06-30] MEDS ORDERED: IOHEXOL 350 MG/ML 10 ML VIAL (for RAD DIAG) IVCONTRAST ONE (12:01)
[2017-06-30 12:08] LABS: SCAN/DIFF AUTO DIFF CONFIRMED
[2017-06-30 12:12] LABS: METHOD OF COLLECTION CLEAN CATCH; SQUAMOUS EPITHELIAL CELL URINE 0-5 /hpf (0-5); URINE COLOR YELLOW (YELLW/STRAW)
[2017-06-30 12:13] LABS: COMMENT (UR) CULT NOT INDICATED; CULTURE IF INDICATED CULT NOT INDICATED
--- NOTE | 2017-06-30 12:20 | RADRPT ---
EXAM DATE/TIME: 06/30/2017 11:55 [facility] COMPARISON: CT BRAIN W/O CONTRAST, January 18, 2017, 11:25. INDICATIONS : Right abdominal pain. IV CONTRAST: 95 cc Omnipaque 350 (iohexol) IV ORAL CONTRAST: No oral contrast ingested. RADIATION DOSE: 12.28 CTDIvol (mGy) MEDICAL HISTORY : Cardiovascular disease. Cerebrovascular disease. Pancreatitis.Hypertension. SURGICAL HISTORY : Coronary artery stent. Cholecystectomy.Appendectomy.Hysterectomy. ENCOUNTER: Initial ACUITY: 2 days PAIN SCALE: 3/10 LOCATION: Right abdomen TECHNIQUE: Volumetric scanning of the abdomen and pelvis was performed. Using automated exposure control and ad justment of the mA and/or kV according to patient size, radiation dose was kept as low as reasonably achievable to obtain optimal diagnostic quality images. DICOM format image data is available electro nically for review and comparison. FINDINGS: The limited portion of the lung base visualized is clear. The appearance of the liver, spleen, pancreas, adrenal glands and kidneys is within normal limits. The patient is post cholecystectomy. The common bile duct is prominent measuring 7 mm at the pancreat ic head. This is likely a reservoir effect. There is no free intraperitoneal air. No free intraperitoneal fluid is identified. There is no retrop eritoneal lymphadenopathy. The aorta is normal in caliber. The visualized loops of small large bowel demonstrate a moderate amount of stool within the cecum. Th e loops of small large bowel are otherwise unremarkable. There is no free fluid within the pelvis. No iliac or inguinal adenopathy is present. The visualized loops of small and large bowel within the pelvis are unremarkable. Note is made of a small left inguinal hernia. There are moderate degenerative changes in the lumbar spine. CONCLUSION: 1. Moderate amount of stool within the cecum. 2. Small left inguinal hernia. 3. The patient is post cholecystectomy. 4. Mild prominence of the distal common bile duct. 5. No free air or free fluid identified. Chadd Contreras MD on June 30, 2017 at 12:11 Board Certified Radiologist. This report was verified electronically.
[2017-06-30] MEDS ORDERED: SODIUM CHLOR 0.9% 1000 ML INJ 1,000 ML IV ONE (12:45)
[2017-06-30] MEDS ORDERED: HYDROmorphone HCL PF 2 MG/ML VIAL IV PUSH ONE (12:45)
[2017-06-30] MEDS ORDERED: ONDANSETRON HCL 4 MG/2 ML VIAL IV PUSH ONE (12:45)
[2017-06-30] MEDS ORDERED: PROC10TA PO (12:54)
[2017-06-30] MEDS ORDERED: PERC10TA27 PO (12:54)
[2017-06-30] MEDS ORDERED: LORA-474 PO (14:12)
== END 2017-06-30 15:29 | disposition home or self-care (01) ==
LOC: PHED 06:55
DX: K86.1 Other chronic pancreatitis (principal); Z95.5 Presence of coronary angioplasty implant and graft; E07.9 Disorder of thyroid, unspecified; I10 Essential (primary) hypertension; I25.10 Atherosclerotic heart disease of native coronary artery without angina pectoris; I25.2 Old myocardial infarction; Z86.73 Personal history of transient ischemic attack (TIA), and cerebral infarction without residual deficits
CPT/HCPCS: 74177; 80053; 81001; 83690; 85025; 96361; 96374; 96375; 96376; 99285; C9113; J1170; J2405; J7030; Q9967

== ENCOUNTER 2017-07-29 10:40 | Emergency (ER) | payer SELFPAY ==
[~2017-07-29] VITALS: Ht 172.7 cm; Wt 71.0 kg
[~2017-07-29 10:40] MED LIST changes: +LORA-474 PO; +PERC10TA27 PO; +PROC10TA PO
[2017-07-29 10:54] VITALS: BP 152/108; PULSE 77; RESP 16; TEMP 98.6; O2SAT 100
[2017-07-29] MEDS ORDERED: HYDR-3535 PO (11:05)
[2017-07-29] MEDS ORDERED: MORP1TAB25 PO (11:05)
[2017-07-29] MEDS ORDERED: SODIUM CHLOR 0.9% 1000 ML INJ 1,000 ML IV SCH (11:06)
[2017-07-29 11:10] VITALS: O2SAT 100
[2017-07-29] MEDS ORDERED: FAMOTIDINE 20 MG/2 ML VIAL IV PUSH ONE (11:15)
[2017-07-29] MEDS ORDERED: MORPHINE SULFATE 4 MG/ML INJ IV PUSH ONE (11:15)
[2017-07-29] MEDS ORDERED: ONDANSETRON HCL 4 MG/2 ML VIAL IVP ONE (11:15)
[2017-07-29] MEDS ORDERED: SODIUM CHLORIDE 0.9% FLUSH 10 ML FLUSH IV FLUSH PRN (11:15)
[2017-07-29 11:24] LABS: AUTOMATED NEUTROPHIL # 3.6 TH/MM3 (1.8-7.7); BASOPHIL % 0.5 % (0.0-2.0); EOSINOPHIL % 0.7 % (0.0-4.0); HEMATOCRIT 38.5 % (35.0-46.0); HEMO FLAGS DIFF FINAL; LYMPH % 24.4 % (9.0-44.0); LYMPHOCYTE # 1.3 TH/MM3 (1.0-4.8); MEAN CELL VOLUME 88.1 FL (80.0-100.0); MEAN CORPUSCULAR HEMOGLOBIN 29.1 PG (27.0-34.0); MONO % 7.7 % (0.0-8.0); NEUT % 66.7 % (16.0-70.0); PLATELET COUNT 230 TH/MM3 (150-450); RED BLOOD COUNT 4.36 MIL/MM3 (4.00-5.30); RED CELL DISTRIBUTION WIDTH 14.4 % (11.6-17.2); WHITE BLOOD COUNT 5.3 TH/MM3 (4.0-11.0)
[2017-07-29 11:35] LABS: CHLORIDE 104 MEQ/L (98-107); SODIUM (NA) 139 MEQ/L (136-145)
[2017-07-29 11:39] LABS: ANION GAP 9 MEQ/L (5-15); APTT (PATIENT) 24.9 SEC (24.3-30.1); PROTHROMBIN TIME - PATIENT 11.2 SEC (9.8-11.6)
[2017-07-29 11:40] LABS: BLOOD UREA NITROGEN 9 MG/DL (7-18)
[2017-07-29 11:42] LABS: ALT (GPT) 104 U/L (10-53); AST (GOT) 55 U/L (15-37)
[2017-07-29 11:43] LABS: GLOMERULAR FILTRATION RATE 69 ML/MIN (>89)
[2017-07-29 11:44] LABS: TOTAL BILIRUBIN ADULT 0.7 MG/DL (0.2-1.0)
[2017-07-29 11:45] LABS: ALKALINE PHOSPHATASE 76 U/L (45-117)
[2017-07-29 11:54] VITALS: BP 154/99; PULSE 60; O2SAT 100
[2017-07-29] MEDS ORDERED: HYDROmorphone HCL PF 1 MG/ML VIAL IV PUSH ONE ×2 (12:00→13:15)
[2017-07-29] MEDS ORDERED: POTASSIUM CHLORIDE 10 MEQ CONTROLLED RELEASE TAB PO ONE (12:00)
[2017-07-29 12:19] LABS: BLOOD, URINE NEG (NEG); GLUCOSE,URINE NEG (NEG); KETONE, URINE NEG (NEG); NITRITE,URINE NEG (NEG); PH, URINE 7.5 (5.0-8.5)
[2017-07-29 12:24] LABS: COMMENT (UR) CULT NOT INDICATED; CULTURE IF INDICATED CULT NOT INDICATED; METHOD OF COLLECTION CLEAN CATCH; SQUAMOUS EPITHELIAL CELL URINE 0-5 /hpf (0-5); URINE COLOR STRAW (YELLW/STRAW); WBC, URINE 0-2 /hpf (0-5)
[2017-07-29] MEDS ORDERED: IOHEXOL 350 MG/ML 10 ML VIAL (for RAD DIAG) IVCONTRAST ONE (12:40)
[2017-07-29] MEDS: POTASSIUM CHLOR 20 MEQ PREMIX 100 ML IV SCH ×3 (12:58→15:11)
--- NOTE | 2017-07-29 12:59 | PD ---
HPI Chief Complaint: Abdominal Pain Time Seen by Provider: 10:58 Travel History International Travel<30 days: No Contact w/Intl Traveler<30days: No Traveled to known affect area: No History of Present Illness HPI Patient is a 52 year old female who comes in complaining of abdominal pain going into her chest and back. She says she has history of chronic pancreatitis and has been here multiple times for this. She also has history of chronic pain and takes 30mg Morphine 3 times per day and Lortab as well as Ativan. She says the pain started last night and it got worse today. She also reports nausea and vomiting. She denies fever or chills. She says she feels anxious. PFSH Past Medical History Hx Anticoagulant Therapy: No Arthritis: Yes Asthma: No Autoimmune Disease: No Bipolar Disorder: Yes Anxiety: Yes Depression: Yes Heart Rhythm Problems: No Cancer: Yes (Thyroid) Cardiac Catheterization: Yes (X's 1, one stent) Cardiovascular Problems: Yes High Cholesterol: No Chemotherapy: Yes Chest Pain: Yes Congestive Heart Failure: No COPD: No Cerebrovascular Accident: Yes (2005, 2009) Coronary Artery Disease: Yes Diabetes: No Diminished Hearing: No Endocrine: Yes (CHRONIC PANCREATITIS) Gastrointestinal Disorders: Yes GERD: No Genitourinary: Yes Headaches: Yes (About once a month) Hepatitis: Yes (C) Hiatal Hernia: No Herniated Disk: Yes (L4, L5) Hypertension: Yes Immune Disorder: No Implanted Vascular Access Dvce: No Insomnia: Yes Kidney Stones: No Musculoskeletal: Yes Neurologic: Yes Psychiatric: No Reproductive: Yes Respiratory: No Immunizations Current: Yes Migraines: Yes Myocardial Infarction: Yes (2010) Pancreatitis: Yes Pneumonia: Yes Radiation Therapy: Yes (H/O) Renal Failure: No Seizures: Yes Shingles: Yes Sickle Cell Disease: No Sleep Apnea: No Thyroid Disease: Yes Ulcer: No PNEUMOCCOCAL Vaccine (Year): 2010 ?: Not Menopausal: Yes : 8 Para: 6 Miscarriage: 1 : 1 Ectopic : Yes (X's 2) Tubal Ligation: Yes Past Surgical History Abdominal Surgery: Yes AICD: No Appendectomy: Yes (1992) Arteriovenous Shunt: No Body Medical Devices: NONE PER PT Cardiac Surgery: Yes Section: Yes (X's 2) Cholecystectomy: Yes Coronary Artery Bypass Graft: No Coronary Stent: Yes (X's 1) Ear Surgery: No Endocrine Surgery: Yes Eye Surgery: No Genitourinary Surgery: Yes (Bladder) Gynecologic Surgery: Yes (Pelvic mesh) Hysterectomy: Yes Insulin Pump: No Joint Replacement: No Neurologic Surgery: Yes Oral Surgery: No Pacemaker: No Thoracic Surgery: No Tonsillectomy: Yes Other Surgery: Yes Social History Alcohol Use: No Tobacco Use: No Substance Use: No Allergies-Medications (Allergen,Severity, Reaction): Coded Allergies: diphenhydramine (Verified Adverse Reaction, Unknown, 06/30/17) Reported Meds & Prescriptions Reported Meds & Active Scripts Active Phenergan (Promethazine HCl) 25 Mg Tablet 25 Mg PO Q6H PRN Zofran Odt (Ondansetron Odt) 4 Mg Tab 4 Mg SL Q6HR PRN Reported Lortab (Hydrocodone-Acetaminophen) 10-325 Mg Tab 1 Tab PO Q6H PRN Morphine ER (Morphine Sulfate) 30 Mg Tab 30 Mg PO Q8H Levothyroxine (Levothyroxine Sodium) 125 Mcg Tab 125 Mcg PO DAILY Review of Systems Except as stated in HPI: all other systems reviewed are Neg General / Constitutional: No: Fever, Chills HENT: No: Headaches, Lightheadedness Cardiovascular: Positive: Chest Pain or Discomfort Respiratory: No: Shortness of Breath Gastrointestinal: Positive: Nausea, Vomiting, Abdominal Pain, No: Diarrhea Genitourinary: No: Dysuria Musculoskeletal: No: Edema, Pain Skin: No Rash, No Change in Pigmentation Neurologic: No: Weakness, Dizziness Psychiatric: Positive: Anxiety Physical Exam Narrative GENERAL: Awake and alert, in mild distress due to pain. SKIN: Focused skin assessment warm/dry. HEAD: Atraumatic. Normocephalic. EYES: Pupils equal and round. No scleral icterus. No injection or drainage. ENT: Mucous membranes pink and moist. NECK: Trachea midline. No JVD. CARDIOVASCULAR: Regular rate and rhythm. No murmur appreciated. RESPIRATORY: No accessory muscle use. Clear to auscultation. Breath sounds equal bilaterally. GASTROINTESTINAL: Abdomen soft, nondistended. Mild tenderness to palpation of the upper abdomen. No rebound or guarding. MUSCULOSKELETAL: No obvious deformities. No clubbing. No cyanosis. No edema. NEUROLOGICAL: Awake and alert. No obvious cranial nerve deficits. Motor grossly within normal limits. Normal speech. PSYCHIATRIC: Appropriate mood and affect; insight and judgment normal. Data Data Last Documented VS Vital Signs Date Time Temp Pulse Resp B/P (MAP) Pulse Ox O2 Delivery O2 Flow Rate FiO2 07/29/17 13:02 64 18 177/102 (127) 100 07/29/17 10:54 98.6 Orders Orders Complete Blood Count With Diff (07/29/17 11:06) Comprehensive Metabolic Panel (07/29/17 11:06) Lipase (07/29/17 11:06) Prothrombin Time / Inr (Pt) (07/29/17 11:06) Act Partial Throm Time (Ptt) (07/29/17 11:06) Urinalysis - C+S If Indicated (07/29/17 11:06) Ct Abd/Pel W Iv Contrast(Rout) (07/29/17 11:06) Iv Access Insert/Monitor (07/29/17 11:06) Ecg Monitoring (07/29/17 11:06) Oximetry (07/29/17 11:06) Morphine Inj (Morphine Inj) (07/29/17 11:15) Ondansetron Inj (Zofran Inj) (07/29/17 11:15) Sodium Chlor 0.9% 1000 Ml Inj (Ns 1000 M (07/29/17 11:06) Sodium Chloride 0.9% Flush (Ns Flush) (07/29/17 11:15) Famotidine Inj (Pepcid Inj) (07/29/17 11:15) Troponin I (07/29/17 11:06) Electrocardiogram (07/29/17 ) Hydromorphone Pf Inj (Dilaudid Pf Inj) (07/29/17 12:00) Potassium Chloride (Kcl) (07/29/17 12:00) Potassium Chlor 20 Meq Premix (Kcl 20 Me (07/29/17 12:45) Iohexol 350 Inj (Omnipaque 350 Inj) (07/29/17 12:40) Hydromorphone Pf Inj (Dilaudid Pf Inj) (07/29/17 13:15) Potassium Chloride Powder (Kcl Powder) (07/29/17 14:00) Ketorolac Inj (Toradol Inj) (07/29/17 14:00) Promethazine Inj (Phenergan Inj) (07/29/17 14:45) Labs Laboratory Tests Test 07/29/17 11:08 07/29/17 12:00 White Blood Count 5.3 TH/MM3 Red Blood Count 4.36 MIL/MM3 Hemoglobin 12.7 GM/DL Hematocrit 38.5 % Mean Corpuscular Volume 88.1 FL Mean Corpuscular Hemoglobin 29.1 PG Mean Corpuscular Hemoglobin Concent 33.0 % Red Cell Distribution Width 14.4 % Platelet Count 230 TH/MM3 Mean Platelet Volume 7.7 FL Neutrophils (%) (Auto) 66.7 % Lymphocytes (%) (Auto) 24.4 % Monocytes (%) (Auto) 7.7 % Eosinophils (%) (Auto) 0.7 % Basophils (%) (Auto) 0.5 % Neutrophils # (Auto) 3.6 TH/MM3 Lymphocytes # (Auto) 1.3 TH/MM3 Monocytes # (Auto) 0.4 TH/MM3 Eosinophils # (Auto) 0.0 TH/MM3 Basophils # (Auto) 0.0 TH/MM3 CBC Comment DIFF FINAL Differential Comment Prothrombin Time 11.2 SEC Prothromb Time International Ratio 1.0 RATIO Activated Partial Thromboplast Time 24.9 SEC Blood Urea Nitrogen 9 MG/DL Creatinine 0.86 MG/DL Random Glucose 103 MG/DL Total Protein 8.0 GM/DL Albumin 4.3 GM/DL Calcium Level 8.9 MG/DL Alkaline Phosphatase 76 U/L Aspartate Amino Transf (AST/SGOT) 55 U/L Alanine Aminotransferase (ALT/SGPT) 104 U/L Total Bilirubin 0.7 MG/DL Sodium Level 139 MEQ/L Potassium Level 3.0 MEQ/L Chloride Level 104 MEQ/L Carbon Dioxide Level 26.0 MEQ/L Anion Gap 9 MEQ/L Estimat Glomerular Filtration Rate 69 ML/MIN Troponin I LESS THAN 0.02 NG/ML Lipase 158 U/L Urine Collection Type CLEAN CATCH Urine Color STRAW Urine Turbidity CLEAR Urine pH 7.5 Urine Specific Fitzhugh 1.004 Urine Protein NEG mg/dL Urine Glucose (UA) NEG mg/dL Urine Ketones NEG mg/dL Urine Occult Blood NEG Urine Nitrite NEG Urine Bilirubin NEG Urine Leukocyte Esterase NEG Urine WBC 0-2 /hpf Urine Squamous Epithelial Cells 0-5 /hpf Microscopic Urinalysis Comment CULT NOT INDICATED Urine Collection Time 12:00 [facility] Medical Decision Making Medical Screen Exam Complete: Yes Emergency Medical Condition: Yes Medical Record Reviewed: Yes Differential Diagnosis Pancreatitis versus retained gallstone versus gastritis versus malingering versus drug-seeking behavior Narrative Course Patient is a 52-year-old female who comes in complaining of abdominal pain radiating to her back. She says she has history of chronic pancreatitis. Exam shows mild upper abdominal tenderness on palpation. IV established, labs sent. Lipase is within normal limits. There is a slight elevation in her AST and ALTs, however this is similar to her past results. Potassium is low at 3.0. This was replaced. Patient has been here multiple times for this. [facility] shows she received a prescription for 90 Morphine tabs on 07/15 and 120 Lortabs on 07/10. She has received other smaller prescriptions for Percocet and Lortab throughout the month of June. She also filled a prescription for Ativan. CT abd/pelvis shows constipation, no other abnormalities. Last 24 hours Impressions Abdomen/Pelvis CT 07/29/17 1106 Signed Impressions: Service Date/Time: Saturday, July 29, 2017 12:30 - CONCLUSION: 1. Negative, do not see etiology for pain. 2. Extensive degenerative changes lumbar spine. Mat Contreras MD FACR She was given IVF, Zofran, Morphine, Dilaudid x 2. I explained these results to the patient. She insists that she, "just doesn't feel right." And asked to explain this, she says she feels like she "just cannot think." She said can you just call the hospitalist for me. I explained that all the tests that we have done are reassuring and that she should go and follow-up with her doctors. She then requested a prescription for Percocet. Explained to her that she has plenty of pain medicine at home and she can take that if she needs it. She then asked for Phenergan and Zofran. They agreed to write prescriptions for the antibiotics. She is advised to drink plenty fluids. Advised follow-up with her doctors. Advised to return to the ED as needed for any worsening symptoms. Diagnosis Primary Impression: Abdominal pain Qualified Codes: R10.13 - Epigastric pain Additional Impression: Nausea & vomiting Qualified Codes: R11.2 - Nausea with vomiting, unspecified Referrals: [facility] for appointment Patient Instructions: Abdominal Pain (ED), General Instructions Additional Instructions: Follow-up with your doctors. Drink plenty of fluids. Return to the ED as needed for any worsening symptoms. If he would like to see psychiatry, you can follow-up with [facility]. Scripts Promethazine (Phenergan) 25 Mg Tablet 25 MG PO Q6H Y for NAUSEA OR VOMITING, #6 TAB 0 Refills Prov: Mikayla Langston MD 07/29/17 Ondansetron Odt (Zofran Odt) 4 Mg Tab 4 MG SL Q6HR Y for Nausea/Vomiting, #12 TAB 0 Refills Prov: Mikayla Langston MD 07/29/17 Disposition: 01 DISCHARGE HOME Condition: Stable Mikayla Langston MD Jul 29, 2017 12:59
--- NOTE | 2017-07-29 12:59 | RADRPT ---
EXAM DATE/TIME: 07/29/2017 12:30 [facility] COMPARISON: CT ABDOMEN & PELVIS W CONTRAST, June 30, 2017, 11:55. INDICATIONS : Periumbilical pain, nausea, vomiting and diarrhea. IV CONTRAST: 85 cc Omnipaque 350 (iohexol) IV ORAL CONTRAST: No oral contrast ingested. RADIATION DOSE: 10.19 CTDIvol (mGy) MEDICAL HISTORY : Pancreatitis. Myocardial infarction. Hypertension.Graves disease. Hepatitis C. Thyroid cancer. SURGICAL HISTORY : section. Cholecystectomy.Tubal ligation.Appendectomy. Hysterectomy. Bladder surgery. Coron kindra stent. ENCOUNTER: Initial ACUITY: 1 day PAIN SCALE: 10/10 LOCATION: Umbilical TECHNIQUE: Volumetric scanning of the abdomen and pelvis was performed. Using automated exposure control and ad justment of the mA and/or kV according to patient size, radiation dose was kept as low as reasonably achievable to obtain optimal diagnostic quality images. DICOM format image data is available electro nically for review and comparison. FINDINGS: LOWER LUNGS: The visualized lower lungs are clear. LIVER: Homogeneous density without lesion. There is no dilation of the biliary tree. No calcified gallston es. SPLEEN: Normal size without lesion. PANCREAS: Within normal limits. KIDNEYS: Normal in size and shape. There is no mass, stone or hydronephrosis. ADRENAL GLANDS: Within normal limits. VASCULAR: There is no aortic aneurysm. BOWEL/MESENTERY: The stomach, small bowel, and colon demonstrate no acute abnormality. There is no free intraperitone al air or fluid. ABDOMINAL WALL: Within normal limits. RETROPERITONEUM: There is no lymphadenopathy. BLADDER: No wall thickening or mass. REPRODUCTIVE: Within normal limits. INGUINAL: There is no lymphadenopathy or hernia. MUSCULOSKELETAL: Moderate degenerative changes lower lumbar spine. CONCLUSION: 1. Negative, do not see etiology for pain. 2. Extensive degenerative changes lumbar spine. Mat Contreras MD FACR on July 29, 2017 at 12:56 Board Certified Radiologist. This report was verified electronically.
[2017-07-29 13:02] VITALS: BP 177/102; PULSE 64; RESP 18; O2SAT 100
[2017-07-29] MEDS ORDERED: POTASSIUM CHLORIDE 20 MEQ PWD PACKET PO ONE (14:00)
[2017-07-29] MEDS ORDERED: KETOROLAC TROMETHAMINE 30 MG/ML (IVP) VIAL IV PUSH ONE (14:00)
[2017-07-29] MEDS ORDERED: PROM25TA10 PO (14:27)
[2017-07-29] MEDS ORDERED: ZOFR4TAB3 SL (14:27)
[2017-07-29] MEDS ORDERED: PROMETHAZINE INJ 25 MG/ML VIAL IM ONE (14:45)
[2017-07-29 15:18] VITALS: BP 142/78
--- NOTE | 2017-07-30 12:25 | EKG ---
Date Performed: 07/29/2017 Time Performed: 11:27:39 PTAGE: 52 years EKG: SINUS BRADYCARDIA WITH SINUS ARRHYTHMIA SEPTAL MYOCARDIAL INFARCTION NONSPECIFIC INFEROLATE RAL ST SEGMENT CHANGES SINCE THE PRIOR TRACING THERE HAS BEEN NO SIGNIFICANT SERIAL CHANGE ABNORMAL E CG PREVIOUS TRACING : 01/16/2017 01.50 DOCTOR: Manju Marin Interpretating Date/Time 07/30/2017 12:22:28
== END 2017-07-29 15:29 | disposition home or self-care (01) ==
LOC: PHED 10:40
DX: R10.13 Epigastric pain (principal); R11.2 Nausea with vomiting, unspecified; I10 Essential (primary) hypertension; M19.90 Unspecified osteoarthritis, unspecified site; K86.1 Other chronic pancreatitis; B18.2 Chronic viral hepatitis C; E07.9 Disorder of thyroid, unspecified; I25.10 Atherosclerotic heart disease of native coronary artery without angina pectoris; I25.2 Old myocardial infarction; Z86.73 Personal history of transient ischemic attack (TIA), and cerebral infarction without residual deficits; Z79.891 Long term (current) use of opiate analgesic
CPT/HCPCS: 74177; 80053; 81001; 83690; 84484; 85025; 85610; 85730; 93005; 96365; 96366; 96372; 96375; 96376; 99285; J1170; J1885; J2270; J2405; J2550; J3480; J7030; Q9967

== ENCOUNTER 2017-08-20 06:54 | Emergency (ER) | payer SELFPAY ==
[~2017-08-20] VITALS: Ht 172.7 cm; Wt 70.8 kg
[~2017-08-20 06:54] MED LIST changes: +HYDR-3535 PO; -LORA-474 PO; +MORP1TAB25 PO; -PERC10TA27 PO; -PERC7.5T13 PO; -PROC10TA PO; +PROM25TA10 PO; -XANA1TAB2 PO; -ZOFR4TAB PO; +ZOFR4TAB3 SL
[2017-08-20 07:06] VITALS: BP 176/90; PULSE 67; RESP 16; TEMP 98.2; O2SAT 99
[2017-08-20] MEDS ORDERED: SODIUM CHLOR 0.9% 1000 ML INJ 1,000 ML IV SCH (07:26)
[2017-08-20] MEDS ORDERED: FAMOTIDINE 20 MG/2 ML VIAL IV PUSH ONE (07:30)
[2017-08-20] MEDS ORDERED: SODIUM CHLORIDE 0.9% FLUSH 10 ML FLUSH IV FLUSH PRN (07:30)
[2017-08-20] MEDS ORDERED: MORPHINE SULFATE 4 MG/ML INJ IV PUSH ONE (07:30)
[2017-08-20] MEDS ORDERED: ONDANSETRON HCL 4 MG/2 ML VIAL IVP ONE (07:30)
--- NOTE | 2017-08-20 07:31 | PD ---
HPI Chief Complaint: Abdominal Pain Time Seen by Provider: 07:21 Travel History International Travel<30 days: No Contact w/Intl Traveler<30days: No Traveled to known affect area: No History of Present Illness HPI The patient is a 52-year-old female who presents emergency department for epigastric abdominal pain. The patient notes a two-year history of intermittent pancreatitis, she underwent cholecystectomy 2 years ago. However, she continues to have pancreatitis from an unknown origin. The patient was being evaluated by Dr. Adams, and was referred to [facility], however, her and she subsequently did not follow-up at [facility]. The patient denies any history of alcohol use or hypertriglyceridemia. The patient does complain of epigastric abdominal pain that radiates to the right shoulder, moderate to severe, associated with nausea and vomiting. Symptoms are moderate, possibly exacerbated by history pancreatitis, there are no current alleviating factors. She denies any chest pain, shortness of breath, or lower abdominal pain. She denies any associated dysuria. She does not currently have a primary physician or fitness manager in the local area. She states she has been commuting between [place] to [place], and has not followed up with a primary physician in the local area for some time. The patient is currently on Lortab and morphine which is prescribed by her chronic pain physician for her chronic back pain. PFSH Past Medical History Hx Anticoagulant Therapy: No Arthritis: Yes Asthma: No Autoimmune Disease: No Bipolar Disorder: Yes Anxiety: Yes Depression: Yes Heart Rhythm Problems: No Cancer: Yes (Thyroid) Cardiac Catheterization: Yes (X's 1, one stent) Cardiovascular Problems: Yes (hx of htn not on meds) High Cholesterol: No Chemotherapy: Yes Chest Pain: Yes Congestive Heart Failure: No COPD: No Cerebrovascular Accident: Yes (2005, 2009) Coronary Artery Disease: Yes Diabetes: No Diminished Hearing: No Endocrine: Yes (CHRONIC PANCREATITIS) Gastrointestinal Disorders: Yes GERD: No Genitourinary: Yes Headaches: Yes (About once a month) Hepatitis: Yes (C) Hiatal Hernia: No Herniated Disk: Yes (L4, L5) Hypertension: Yes Immune Disorder: No Implanted Vascular Access Dvce: No Insomnia: Yes Kidney Stones: No Musculoskeletal: Yes Neurologic: Yes Psychiatric: No Reproductive: Yes Respiratory: No Immunizations Current: Yes Migraines: Yes Myocardial Infarction: Yes (2010) Pancreatitis: Yes Pneumonia: Yes Radiation Therapy: Yes (H/O) Renal Failure: No Seizures: Yes Shingles: Yes Sickle Cell Disease: No Sleep Apnea: No Thyroid Disease: Yes Ulcer: No PNEUMOCCOCAL Vaccine (Year): 2010 ?: Not Menopausal: Yes : 8 Para: 6 Miscarriage: 1 : 1 Ectopic : Yes (X's 2) Tubal Ligation: Yes Past Surgical History Abdominal Surgery: Yes AICD: No Appendectomy: Yes (1992) Arteriovenous Shunt: No Body Medical Devices: NONE PER PT Cardiac Surgery: Yes Section: Yes (X's 2) Cholecystectomy: Yes Coronary Artery Bypass Graft: No Coronary Stent: Yes (X's 1) Ear Surgery: No Endocrine Surgery: Yes Eye Surgery: No Genitourinary Surgery: Yes (Bladder) Gynecologic Surgery: Yes (Pelvic mesh) Hysterectomy: Yes Insulin Pump: No Joint Replacement: No Neurologic Surgery: Yes Oral Surgery: No Pacemaker: No Thoracic Surgery: No Tonsillectomy: Yes Other Surgery: Yes Social History Alcohol Use: No Tobacco Use: No Substance Use: No Allergies-Medications (Allergen,Severity, Reaction): Coded Allergies: diphenhydramine (Verified Adverse Reaction, Unknown, 08/20/17) anxious Reported Meds & Prescriptions Reported Meds & Active Scripts Active Reported Lortab (Hydrocodone-Acetaminophen) 10-325 Mg Tab 1 Tab PO Q6H PRN Morphine ER (Morphine Sulfate) 30 Mg Tab 30 Mg PO Q8H Levothyroxine (Levothyroxine Sodium) 125 Mcg Tab 125 Mcg PO DAILY Review of Systems Except as stated in HPI: all other systems reviewed are Neg General / Constitutional: No: Fever Cardiovascular: No: Chest Pain or Discomfort Respiratory: No: Shortness of Breath Gastrointestinal: Positive: Nausea, Vomiting, Abdominal Pain, No: Diarrhea Genitourinary: No: Dysuria Physical Exam Narrative GENERAL: Awake, alert, nontoxic-appearing 52-year-old female who appears her stated age and is in no acute respiratory distress. SKIN: Focused skin assessment warm/dry. HEAD: Atraumatic. Normocephalic. EYES: Pupils equal and round. Exophthalmus noted bilaterally. ENT: No nasal bleeding or discharge. Mucous membranes pink and moist. NECK: Trachea midline. No JVD. CARDIOVASCULAR: Regular rate and rhythm. No murmur appreciated. RESPIRATORY: No accessory muscle use. Clear to auscultation. Breath sounds equal bilaterally. GASTROINTESTINAL: Abdomen soft, tender palpation epigastrium. No guarding or rigidity. MUSCULOSKELETAL: No obvious deformities. No clubbing. No cyanosis. No edema. NEUROLOGICAL: Awake and alert. No obvious cranial nerve deficits. Motor grossly within normal limits. Normal speech. PSYCHIATRIC: Appropriate mood and affect; insight and judgment normal. Data Data Last Documented VS Vital Signs Date Time Temp Pulse Resp B/P (MAP) Pulse Ox O2 Delivery O2 Flow Rate FiO2 08/20/17 07:06 98.2 67 16 176/90 (118) 99 Orders Orders Complete Blood Count With Diff (08/20/17 07:26) Comprehensive Metabolic Panel (08/20/17 07:26) Lipase (08/20/17 07:26) Lactic Acid (08/20/17:26) Urinalysis - C+S If Indicated (08/20/17 07:26) Iv Access Insert/Monitor (08/20/17 07:26) Ecg Monitoring (08/20/17 07:26) Oximetry (08/20/17 07:26) Morphine Inj (Morphine Inj) (08/20/17 07:30) Ondansetron Inj (Zofran Inj) (08/20/17 07:30) Sodium Chlor 0.9% 1000 Ml Inj (Ns 1000 M (08/20/17 07:26) Sodium Chloride 0.9% Flush (Ns Flush) (08/20/17 07:30) Electrocardiogram (08/20/17 07:26) Famotidine Inj (Pepcid Inj) (08/20/17 07:30) Morphine Inj (Morphine Inj) (08/20/17 07:55) Hydromorphone Pf Inj (Dilaudid Pf Inj) (08/20/17 08:30) Ceftriaxone Inj (Rocephin Inj) (08/20/17 08:30) Ed Discharge Order (08/20/17 08:37) Labs Laboratory Tests Test 08/20/17 07:45 White Blood Count 4.4 TH/MM3 Red Blood Count 4.08 MIL/MM3 Hemoglobin 12.1 GM/DL Hematocrit 36.6 % Mean Corpuscular Volume 89.8 FL Mean Corpuscular Hemoglobin 29.8 PG Mean Corpuscular Hemoglobin Concent 33.1 % Red Cell Distribution Width 13.8 % Platelet Count 195 TH/MM3 Mean Platelet Volume 7.6 FL Neutrophils (%) (Auto) 58.8 % Lymphocytes (%) (Auto) 28.9 % Monocytes (%) (Auto) 7.9 % Eosinophils (%) (Auto) 3.5 % Basophils (%) (Auto) 0.9 % Neutrophils # (Auto) 2.6 TH/MM3 Lymphocytes # (Auto) 1.3 TH/MM3 Monocytes # (Auto) 0.3 TH/MM3 Eosinophils # (Auto) 0.2 TH/MM3 Basophils # (Auto) 0.0 TH/MM3 CBC Comment DIFF FINAL Differential Comment Urine Collection Type CLEAN CATCH Urine Color YELLOW Urine Turbidity CLEAR Urine pH 7.5 Urine Specific [place] 1.011 Urine Protein NEG mg/dL Urine Glucose (UA) NEG mg/dL Urine Ketones NEG mg/dL Urine Occult Blood NEG Urine Nitrite NEG Urine Bilirubin NEG Urine Leukocyte Esterase LARGE Urine RBC 0-3 /hpf Urine WBC 25-49 /hpf Urine Squamous Epithelial Cells > 8 /hpf Urine Renal Epithelial Cells 6-8 /hpf Microscopic Urinalysis Comment CULTURE INDICATED Urine Collection Time 07:45 Blood Urea Nitrogen 8 MG/DL Creatinine 0.80 MG/DL Random Glucose 102 MG/DL Total Protein 6.9 GM/DL Albumin 3.6 GM/DL Calcium Level 8.4 MG/DL Alkaline Phosphatase 72 U/L Aspartate Amino Transf (AST/SGOT) 61 U/L Alanine Aminotransferase (ALT/SGPT) 119 U/L Total Bilirubin 0.7 MG/DL Sodium Level 141 MEQ/L Potassium Level 3.8 MEQ/L Chloride Level 106 MEQ/L Carbon Dioxide Level 26.9 MEQ/L Anion Gap 8 MEQ/L Estimat Glomerular Filtration Rate 75 ML/MIN Lactic Acid Level 0.8 mmol/L Lipase 194 U/L [facility] Medical Decision Making Medical Screen Exam Complete: Yes Emergency Medical Condition: Yes Medical Record Reviewed: Yes Interpretation(s) EKG reveals sinus bradycardia with a heart rate of 57. Q wave noted in lead V1 and V2. Laboratory Tests Test 08/20/17 07:45 White Blood Count 4.4 TH/MM3 Red Blood Count 4.08 MIL/MM3 Hemoglobin 12.1 GM/DL Hematocrit 36.6 % Mean Corpuscular Volume 89.8 FL Mean Corpuscular Hemoglobin 29.8 PG Mean Corpuscular Hemoglobin Concent 33.1 % Red Cell Distribution Width 13.8 % Platelet Count 195 TH/MM3 Mean Platelet Volume 7.6 FL Neutrophils (%) (Auto) 58.8 % Lymphocytes (%) (Auto) 28.9 % Monocytes (%) (Auto) 7.9 % Eosinophils (%) (Auto) 3.5 % Basophils (%) (Auto) 0.9 % Neutrophils # (Auto) 2.6 TH/MM3 Lymphocytes # (Auto) 1.3 TH/MM3 Monocytes # (Auto) 0.3 TH/MM3 Eosinophils # (Auto) 0.2 TH/MM3 Basophils # (Auto) 0.0 TH/MM3 CBC Comment DIFF FINAL Differential Comment Urine Collection Type CLEAN CATCH Urine Color YELLOW Urine Turbidity CLEAR Urine pH 7.5 Urine Specific [place] 1.011 Urine Protein NEG mg/dL Urine Glucose (UA) NEG mg/dL Urine Ketones NEG mg/dL Urine Occult Blood NEG Urine Nitrite NEG Urine Bilirubin NEG Urine Leukocyte Esterase LARGE Urine RBC 0-3 /hpf Urine WBC 25-49 /hpf Urine Squamous Epithelial Cells > 8 /hpf Urine Renal Epithelial Cells 6-8 /hpf Microscopic Urinalysis Comment CULTURE INDICATED Urine Collection Time 07:45 Blood Urea Nitrogen 8 MG/DL Creatinine 0.80 MG/DL Random Glucose 102 MG/DL Total Protein 6.9 GM/DL Albumin 3.6 GM/DL Calcium Level 8.4 MG/DL Alkaline Phosphatase 72 U/L Aspartate Amino Transf (AST/SGOT) 61 U/L Alanine Aminotransferase (ALT/SGPT) 119 U/L Total Bilirubin 0.7 MG/DL Sodium Level 141 MEQ/L Potassium Level 3.8 MEQ/L Chloride Level 106 MEQ/L Carbon Dioxide Level 26.9 MEQ/L Anion Gap 8 MEQ/L Estimat Glomerular Filtration Rate 75 ML/MIN Lactic Acid Level 0.8 mmol/L Lipase 194 U/L Differential Diagnosis Differential diagnosis includes acute pancreatitis, chronic pancreatitis, gastritis, peptic ulcer disease, retained biliary stone, GERD, esophagitis. Narrative Course IV was established, labs are drawn and sent, and the patient was placed on cardiac telemetry monitoring and continuous pulse oximetry monitoring. The patient was administered morphine, Zofran, Pepcid, and IV fluids. Lipase level was sent to lab. The patient's lipase is unremarkable. The patient's UA is consistent with UTI. 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 The patient requested Dilaudid for continuing pain, she looked comfortable, but continued to complain of pain. She was administered 1 dose of Dilaudid. She' ll be discharged home on Bactrim twice a day for 7 days. She is advised to follow-up with her primary physician and/or fitness manager. Diagnosis Primary Impression: UTI (urinary tract infection) Qualified Codes: N30.00 - Acute cystitis without hematuria Additional Impressions: Epigastric pain Elevated liver enzymes Patient Instructions: General Instructions Additional Instructions: Follow-up with a primary physician or fitness manager. Please provide the patient a copy of her lab results at discharge. Medications as directed. Continue home pain medications as previously directed. Med/Other Pt SpecificInfo: No Change to Meds Scripts Sulfamethoxazole-Trimethoprim (Bactrim DS) 800-160 Mg Tab 1 TAB PO BID for Infection, #14 TAB 0 Refills Prov: Salvador Muller MD 08/20/17 Promethazine (Phenergan) 25 Mg Tablet 25 MG PO Q6H Y for NAUSEA OR VOMITING, #6 TAB 0 Refills Prov: Salvador Muller MD 08/20/17 Disposition: 01 DISCHARGE HOME Condition: Stable Salvador Muller MD Aug 20, 2017 07:31
[2017-08-20 07:45] VITALS: RESP 16; O2SAT 100
[2017-08-20 07:52] LABS: AUTOMATED NEUTROPHIL # 2.6 TH/MM3 (1.8-7.7); BASOPHIL % 0.9 % (0.0-2.0); EOSINOPHIL # 0.2 TH/MM3 (0-0.4); EOSINOPHIL % 3.5 % (0.0-4.0); HEMATOCRIT 36.6 % (35.0-46.0); HEMO FLAGS DIFF FINAL; LYMPH % 28.9 % (9.0-44.0); LYMPHOCYTE # 1.3 TH/MM3 (1.0-4.8); MEAN CELL VOLUME 89.8 FL (80.0-100.0); MEAN CORPUSCULAR HEMOGLOBIN 29.8 PG (27.0-34.0); MEAN CORPUSCULAR HGB CONC 33.1 % (32.0-36.0); MONO % 7.9 % (0.0-8.0); NEUT % 58.8 % (16.0-70.0); PLATELET COUNT 195 TH/MM3 (150-450); RED BLOOD COUNT 4.08 MIL/MM3 (4.00-5.30); RED CELL DISTRIBUTION WIDTH 13.8 % (11.6-17.2); WHITE BLOOD COUNT 4.4 TH/MM3 (4.0-11.0)
[2017-08-20 07:53] LABS: BLOOD, URINE NEG (NEG); GLUCOSE,URINE NEG (NEG); KETONE, URINE NEG (NEG); NITRITE,URINE NEG (NEG); PH, URINE 7.5 (5.0-8.5)
[2017-08-20] MEDS ORDERED: MORPHINE SULFATE 8 MG/ML INJ IV PUSH ONE (07:55)
[2017-08-20 08:02] LABS: METHOD OF COLLECTION CLEAN CATCH; URINE COLOR YELLOW (YELLW/STRAW)
[2017-08-20 08:03] LABS: RBC, URINE 0-3 /hpf (0-3); SQUAMOUS EPITHELIAL CELL URINE > 8 /hpf (0-5)
[2017-08-20 08:05] LABS: COMMENT (UR) CULTURE INDICATED; CULTURE IF INDICATED CULTURE INDICATED
[2017-08-20 08:06] LABS: CHLORIDE 106 MEQ/L (98-107); POTASSIUM 3.8 MEQ/L (3.5-5.1); SODIUM (NA) 141 MEQ/L (136-145)
[2017-08-20 08:10] LABS: ANION GAP 8 MEQ/L (5-15); BICARBONATE 26.9 MEQ/L (21.0-32.0); BLOOD UREA NITROGEN 8 MG/DL (7-18)
[2017-08-20 08:13] LABS: ALT (GPT) 119 U/L (10-53); AST (GOT) 61 U/L (15-37); GLOMERULAR FILTRATION RATE 75 ML/MIN (>89)
[2017-08-20 08:14] LABS: TOTAL BILIRUBIN ADULT 0.7 MG/DL (0.2-1.0)
[2017-08-20 08:16] LABS: ALKALINE PHOSPHATASE 72 U/L (45-117)
[2017-08-20] MEDS ORDERED: cefTRIAXone INJ 1,000 MG in SODIUM CHLORIDE 0.9% INJ 100 ML IV ONE (08:30)
[2017-08-20] MEDS ORDERED: HYDROmorphone HCL PF 1 MG/ML VIAL IV PUSH ONE (08:30)
[2017-08-20] MEDS ORDERED: BACT800T5 PO (08:41)
[2017-08-20] MEDS ORDERED: PROM25TA10 PO (08:41)
[2017-08-20 08:55] VITALS: BP 126/79; PULSE 68; RESP 16; O2SAT 100
[2017-08-20 09:04] VITALS: RESP 16
[2017-08-20 10:28] VITALS: BP 140/85
[2017-08-20] MEDS ORDERED: ONDANSETRON HCL 4 MG/2 ML VIAL IV PUSH ONE (10:30)
--- NOTE | 2017-08-20 13:35 | EKG ---
Date Performed: 08/20/2017 Time Performed: 07:35:37 PTAGE: 52 years EKG: SINUS BRADYCARDIA SEPTAL MYOCARDIAL INFARCTION ABNORMAL ECG Compared to prior tracing no si gnificant change PREVIOUS TRACING : 07/29/2017 11.27 DOCTOR: Doug Alfonso Interpretating Date/Time 08/20/2017 13:31:28
== END 2017-08-20 10:28 | disposition home or self-care (01) ==
LOC: PHED 06:54
DX: N30.00 Acute cystitis without hematuria (principal); B96.89 Other specified bacterial agents as the cause of diseases classified elsewhere; R74.8 Abnormal levels of other serum enzymes
CPT/HCPCS: 80053; 81001; 83605; 83690; 85025; 87086; 93005; 96361; 96365; 96375; 96376; 99284; J0696; J1170; J2270; J2405; J7030

== ENCOUNTER 2017-08-25 06:36 | Emergency (ER) | payer SELFPAY ==
[~2017-08-25] VITALS: Ht 170.2 cm; Wt 72.0 kg
[~2017-08-25 06:36] MED LIST changes: +BACT800T5 PO; -ZOFR4TAB3 SL
[2017-08-25 06:40] VITALS: BP 148/95; PULSE 71; RESP 20; TEMP 98.2; O2SAT 99
[2017-08-25 07:00] VITALS: BP 148/95; PULSE 71; RESP 16; TEMP 98.2; O2SAT 99
[2017-08-25] MEDS ORDERED: SODIUM CHLOR 0.9% 1000 ML INJ 1,000 ML IV SCH (07:08)
[2017-08-25] MEDS ORDERED: ONDANSETRON HCL 4 MG/2 ML VIAL IVP ONE (07:15)
[2017-08-25] MEDS ORDERED: SODIUM CHLORIDE 0.9% FLUSH 10 ML FLUSH IV FLUSH PRN (07:15)
[2017-08-25] MEDS ORDERED: KETOROLAC TROMETHAMINE 30 MG/ML (IVP) VIAL IVP ONE (07:15)
[2017-08-25] MEDS ORDERED: ZOFR4TAB3 SL (07:23)
--- NOTE | 2017-08-25 07:23 | PD ---
HPI Chief Complaint: GI Complaint Time Seen by Provider: 06:58 Travel History International Travel<30 days: No Contact w/Intl Traveler<30days: No History of Present Illness HPI This is a 52-year-old female who has a history of chronic pancreatitis and opiate dependence who presents to the emergency department with nausea, vomiting and epigastric abdominal pain feeling sharp and stabbing at the upper abdomen, severe, constant for several days not improving. At home she takes extended release morphine and Lortab for her pain. She doesn't have an appointment with her pain management doctor until later this month. She lost contact with her primary care physician because she's commuting back and forth from [place] and has yet to make an appointment with him because of insurance issues. She denies any fevers or chills. This is similar. The pain she's had in the past. PFSH Past Medical History Hx Anticoagulant Therapy: No Arthritis: Yes Asthma: No Autoimmune Disease: No Bipolar Disorder: Yes Anxiety: Yes Depression: Yes Heart Rhythm Problems: No Cancer: Yes (Thyroid) Cardiac Catheterization: Yes (X's 1, one stent) Cardiovascular Problems: Yes (hx of htn not on meds) High Cholesterol: No Chemotherapy: Yes Chest Pain: Yes Congestive Heart Failure: No COPD: No Cerebrovascular Accident: Yes (2005, 2009) Coronary Artery Disease: Yes Diabetes: No Diminished Hearing: No Endocrine: Yes (CHRONIC PANCREATITIS) Gastrointestinal Disorders: Yes GERD: No Genitourinary: Yes Headaches: Yes (About once a month) Hepatitis: Yes (C) Hiatal Hernia: No Herniated Disk: Yes (L4, L5) Hypertension: Yes Immune Disorder: No Implanted Vascular Access Dvce: No Insomnia: Yes Kidney Stones: No Musculoskeletal: Yes Neurologic: Yes Psychiatric: No Reproductive: Yes Respiratory: No Immunizations Current: Yes Migraines: Yes Myocardial Infarction: Yes (2010) Pancreatitis: Yes Pneumonia: Yes Radiation Therapy: Yes (H/O) Renal Failure: No Seizures: Yes Shingles: Yes Sickle Cell Disease: No Sleep Apnea: No Thyroid Disease: Yes Ulcer: No PNEUMOCCOCAL Vaccine (Year): 2010 Menopausal: Yes : 8 Para: 6 Miscarriage: 1 : 1 Ectopic : Yes (X's 2) Tubal Ligation: Yes Past Surgical History Abdominal Surgery: Yes AICD: No Appendectomy: Yes (1992) Arteriovenous Shunt: No Body Medical Devices: NONE PER PT Cardiac Surgery: Yes Section: Yes (X's 2) Cholecystectomy: Yes Coronary Artery Bypass Graft: No Coronary Stent: Yes (X's 1) Ear Surgery: No Endocrine Surgery: Yes Eye Surgery: No Genitourinary Surgery: Yes (Bladder) Gynecologic Surgery: Yes (Pelvic mesh) Hysterectomy: Yes Insulin Pump: No Joint Replacement: No Neurologic Surgery: Yes Oral Surgery: No Pacemaker: No Thoracic Surgery: No Tonsillectomy: Yes Other Surgery: Yes Social History Alcohol Use: No Tobacco Use: No Substance Use: No Allergies-Medications (Allergen,Severity, Reaction): Coded Allergies: diphenhydramine (Verified Adverse Reaction, Unknown, 08/20/17) anxious Reported Meds & Prescriptions Reported Meds & Active Scripts Active Zofran Odt (Ondansetron Odt) 4 Mg Tab 4 Mg SL Q6HR PRN Phenergan (Promethazine HCl) 25 Mg Tablet 25 Mg PO Q6H PRN Reported Lortab (Hydrocodone-Acetaminophen) 10-325 Mg Tab 1 Tab PO Q6H PRN Morphine ER (Morphine Sulfate) 30 Mg Tab 30 Mg PO Q8H Levothyroxine (Levothyroxine Sodium) 125 Mcg Tab 125 Mcg PO DAILY Review of Systems Except as stated in HPI: all other systems reviewed are Neg Physical Exam Narrative GENERAL:Well appearing, no acute distress SKIN: Focused skin assessment warm and dry. HEAD: Atraumatic. Normocephalic. EYES: Pupils equal and round. No injection or drainage. ENT: Moist mucous membranes NECK: Trachea midline. CARDIOVASCULAR: Regular rate and rhythm. No murmur appreciated. RESPIRATORY: Clear to auscultation. Breath sounds equal bilaterally. GASTROINTESTINAL: Abdomen soft, mildly tender to palpation in the epigastrium with no rebound or guarding. MUSCULOSKELETAL: No obvious deformities. NEUROLOGICAL: Awake and alert. No obvious cranial nerve deficits. Moving all extremities. PSYCHIATRIC: Appropriate mood and affect; insight and judgment normal. Data Data Last Documented VS Vital Signs Date Time Temp Pulse Resp B/P (MAP) Pulse Ox O2 Delivery O2 Flow Rate FiO2 08/25/17 07:00 98.2 71 16 148/95 (112) 99 Orders Orders Complete Blood Count With Diff (08/25/17 07:08) Comprehensive Metabolic Panel (08/25/17 07:08) Lipase (08/25/17 07:08) Urinalysis - C+S If Indicated (08/25/17 07:08) Iv Access Insert/Monitor (08/25/17 07:08) Ecg Monitoring (08/25/17 07:08) Oximetry (08/25/17 07:08) Ondansetron Inj (Zofran Inj) (08/25/17 07:15) Sodium Chlor 0.9% 1000 Ml Inj (Ns 1000 M (08/25/17 07:08) Sodium Chloride 0.9% Flush (Ns Flush) (08/25/17 07:15) Ketorolac Inj (Toradol Inj) (08/25/17 07:15) Promethazine Inj (Phenergan Inj) (08/25/17 08:15) Labs Laboratory Tests Test 08/25/17 07:00 08/25/17 07:10 White Blood Count 5.7 TH/MM3 Red Blood Count 4.37 MIL/MM3 Hemoglobin 13.1 GM/DL Hematocrit 39.5 % Mean Corpuscular Volume 90.4 FL Mean Corpuscular Hemoglobin 30.0 PG Mean Corpuscular Hemoglobin Concent 33.2 % Red Cell Distribution Width 14.1 % Platelet Count 251 TH/MM3 Mean Platelet Volume 7.6 FL Neutrophils (%) (Auto) 59.7 % Lymphocytes (%) (Auto) 28.7 % Monocytes (%) (Auto) 8.1 % Eosinophils (%) (Auto) 3.0 % Basophils (%) (Auto) 0.5 % Neutrophils # (Auto) 3.4 TH/MM3 Lymphocytes # (Auto) 1.6 TH/MM3 Monocytes # (Auto) 0.5 TH/MM3 Eosinophils # (Auto) 0.2 TH/MM3 Basophils # (Auto) 0.0 TH/MM3 CBC Comment DIFF FINAL Differential Comment Blood Urea Nitrogen 9 MG/DL Creatinine 0.89 MG/DL Random Glucose 103 MG/DL Total Protein 7.1 GM/DL Albumin 3.7 GM/DL Calcium Level 8.3 MG/DL Alkaline Phosphatase 86 U/L Aspartate Amino Transf (AST/SGOT) 43 U/L Alanine Aminotransferase (ALT/SGPT) 88 U/L Total Bilirubin 0.5 MG/DL Sodium Level 142 MEQ/L Potassium Level 3.5 MEQ/L Chloride Level 108 MEQ/L Carbon Dioxide Level 28.2 MEQ/L Anion Gap 6 MEQ/L Estimat Glomerular Filtration Rate 66 ML/MIN Lipase 472 U/L Urine Collection Type CLEAN CATCH Urine Color YELLOW Urine Turbidity CLEAR Urine pH 7.0 Urine Specific [place] 1.015 Urine Protein NEG mg/dL Urine Glucose (UA) NEG mg/dL Urine Ketones NEG mg/dL Urine Occult Blood NEG Urine Nitrite NEG Urine Bilirubin NEG Urine Leukocyte Esterase LARGE Urine RBC 0-3 /hpf Urine WBC 20-24 /hpf Urine WBC Clumps OCC Urine Squamous Epithelial Cells 0-5 /hpf Urine Renal Epithelial Cells 0-5 /hpf Urine Bacteria OCC /hpf Microscopic Urinalysis Comment CULTURE INDICATED Urine Collection Time 07:10 [facility] Medical Decision Making Medical Screen Exam Complete: Yes Emergency Medical Condition: Yes Differential Diagnosis Chronic pancreatitis, acute pancreatitis, electrolyte abnormality, dehydration, opiate dependence Narrative Course This is a 52-year-old female who presents to the emergency department with abdominal pain typical of her chronic pancreatitis. I seen this patient multiple times in the past over several years. She has a long history of opiate dependence which I think complicates and worsens her chronic abdominal pain. She has a benign physical exam. Labs are reassuring. Lipase is slightly elevated but not twice the upper limit of normal. Patient was given antiemetics and IV fluids as well as Toradol. I don't think it's appropriate to medicate her chronic abdominal pain with opiates in the emergency department. I discussed that with her. She's had multiple imaging studies in our system in the past. She does have evidence of a urinary tract infection. She'll be treated with Macrobid as she's had resistance to Bactrim in the past. Patient was pretty upset that I was not administering IV opiates in the emergency department. Initially she wanted to leave AGAINST MEDICAL ADVICE but then said she would stay because she wanted a work note. I don't think her presentation today reflects an acute medical emergency. Diagnosis Primary Impression: Chronic abdominal pain Patient Instructions: General Instructions Additional Instructions: If you develop severe or worsening abdominal pain, fever>100.4, persistent vomiting or inability to eat or drink return to the emergency department immediately. Follow up with your primary care physician in 1-2 days for a check-up. Med/Other Pt SpecificInfo: Prescription(s) given Scripts Nitrofurantoin Monohydrate Macrocrystals (Macrobid) 100 Mg Capsule 100 MG PO BID for Infection for 7 Days, #14 CAP 0 Refills Prov: Lupe Greco MD 08/25/17 Ondansetron Odt (Zofran Odt) 4 Mg Tab 4 MG SL Q6HR Y for Nausea/Vomiting, #30 TAB 0 Refills Prov: Lupe Greco MD 08/25/17 Disposition: 01 DISCHARGE HOME Condition: Stable Lupe Greco MD Aug 25, 2017 07:23
[2017-08-25 07:25] LABS: AUTOMATED NEUTROPHIL # 3.4 TH/MM3 (1.8-7.7); BASOPHIL % 0.5 % (0.0-2.0); EOSINOPHIL # 0.2 TH/MM3 (0-0.4); HEMATOCRIT 39.5 % (35.0-46.0); HEMO FLAGS DIFF FINAL; LYMPH % 28.7 % (9.0-44.0); LYMPHOCYTE # 1.6 TH/MM3 (1.0-4.8); MEAN CELL VOLUME 90.4 FL (80.0-100.0); MEAN CORPUSCULAR HGB CONC 33.2 % (32.0-36.0); MONO % 8.1 % (0.0-8.0); NEUT % 59.7 % (16.0-70.0); PLATELET COUNT 251 TH/MM3 (150-450); RED BLOOD COUNT 4.37 MIL/MM3 (4.00-5.30); RED CELL DISTRIBUTION WIDTH 14.1 % (11.6-17.2); WHITE BLOOD COUNT 5.7 TH/MM3 (4.0-11.0)
[2017-08-25 07:25] LABS: BLOOD, URINE NEG (NEG); GLUCOSE,URINE NEG (NEG); KETONE, URINE NEG (NEG); NITRITE,URINE NEG (NEG)
[2017-08-25 07:34] LABS: CHLORIDE 108 MEQ/L (98-107); POTASSIUM 3.5 MEQ/L (3.5-5.1); SODIUM (NA) 142 MEQ/L (136-145)
[2017-08-25 07:38] LABS: ANION GAP 6 MEQ/L (5-15); BICARBONATE 28.2 MEQ/L (21.0-32.0)
[2017-08-25 07:39] LABS: BLOOD UREA NITROGEN 9 MG/DL (7-18)
[2017-08-25 07:41] LABS: ALT (GPT) 88 U/L (10-53); AST (GOT) 43 U/L (15-37); GLOMERULAR FILTRATION RATE 66 ML/MIN (>89)
[2017-08-25 07:43] LABS: TOTAL BILIRUBIN ADULT 0.5 MG/DL (0.2-1.0)
[2017-08-25 07:44] LABS: ALKALINE PHOSPHATASE 86 U/L (45-117)
[2017-08-25 07:45] VITALS: BP 156/102; PULSE 67; RESP 16; O2SAT 99
[2017-08-25 08:12] LABS: METHOD OF COLLECTION CLEAN CATCH; RBC, URINE 0-3 /hpf (0-3); SQUAMOUS EPITHELIAL CELL URINE 0-5 /hpf (0-5); URINE COLOR YELLOW (YELLW/STRAW)
[2017-08-25 08:13] LABS: BACTERIA, URINE OCC /hpf; COMMENT (UR) CULTURE INDICATED; CULTURE IF INDICATED CULTURE INDICATED; RENAL EPITHELIAL CELLS 0-5 /hpf
[2017-08-25] MEDS ORDERED: PROMETHAZINE INJ 25 MG/ML VIAL IM ONE (08:15)
[2017-08-25] MEDS ORDERED: MACR100C2 PO (08:19)
== END 2017-08-25 08:27 | disposition home or self-care (01) ==
LOC: PHED 06:36
DX: G89.29 Other chronic pain (principal); K86.1 Other chronic pancreatitis; F11.20 Opioid dependence, uncomplicated
CPT/HCPCS: 80053; 81001; 83690; 85025; 87086; 96361; 96374; 96375; 99284; J1885; J2405; J7030

== ENCOUNTER 2018-08-03 10:46 | Observation (INO) ==
[2018-08-03] MEDS ORDERED: Morphine Sulfate Inj 2 MG/ML Vial IV.PUSH ONE (11:00)
[2018-08-03] MEDS ORDERED: Aspirin 325 MG Tablet PO ONE (11:00)
--- NOTE | 2018-08-03 11:04 | ED ---
HPI General Chief Complaint: Chest Pain Stated Complaint: chest pain x1day Time Seen by Provider: 08/03/18 11:00 Source: patient Mode of arrival: ambulatory Limitations: no limitations History of Present Illness HPI narrative: 53-year-old female patient with previous history of [place], TIA, pancreatitis, status post cholecystectomy, presents to the ER today because she states that she started not feeling well last night, feeling pressure in her epigastric area and left chest, states an 8 out of 10, nauseous, vomiting, and has been very anxious about this issue. She states that she feels clammy, tingling all over. She feels short of breath. She denies any fevers, diarrhea , coughing, or any other symptoms. Related Data Home Medications Medication Instructions Recorded Confirmed gabapentin mg PO DIRECTED 08/03/18 levothyroxine [Synthroid] mcg PO DAILY 08/03/18 morphine mg PO DIRECTED PRN 08/03/18 oxycodone mg PO DIRECTED PRN 08/03/18 Allergies Allergy/AdvReac Type Severity Reaction Status Date / Time diphenhydramine AdvReac Severe Agitation Verified 08/03/18 11:05 Review of Systems ROS: all other systems reviewed are negative PMFSH History History Provided By: Patient Medical History Medical History Back pain (Acute) Myocardial infarct (Acute) Pancreatitis (Acute) TIA (transient ischemic attack) (Acute) Surgical History Surgical History S/P appendectomy (Acute) S/P section (Acute) S/P cholecystectomy (Acute) S/P hysterectomy with oophorectomy (Acute) S/P thyroid surgery (Acute) Social History Social History Second Hand Smoke Exposure: No Smoking Status: Former smoker Tobacco Type: Cigarettes How Often Do You Have a Drink Containing Alcohol: Never Recent Travel in [facility] within the Last 8 Weeks: No Recent Out of Country Travel within the Last 8 Weeks: No Exam Narrative Exam Narrative: GENERAL: Well-developed middle-age female patient currently and moderate distress. Awake and oriented x3. SKIN: Focused skin assessment warm/dry. HEAD: Atraumatic. Normocephalic. EYES: Pupils equal and round. No scleral icterus. No injection or drainage. ENT: No nasal bleeding or discharge. Mucous membranes pink and moist. NECK: Trachea midline. No JVD. CARDIOVASCULAR: Regular rate and rhythm. No murmur appreciated. RESPIRATORY: No accessory muscle use. Clear to auscultation. Breath sounds equal bilaterally. GASTROINTESTINAL: Abdomen soft, epigastric tenderness without guarding or rebound, nondistended. Hepatic and splenic margins not palpable. MUSCULOSKELETAL: No obvious deformities. No clubbing. No cyanosis. No edema. NEUROLOGICAL: Awake and alert. No obvious cranial nerve deficits. Motor grossly within normal limits. Normal speech. PSYCHIATRIC: Anxious mood and affect; insight and judgment normal. Course Initial Documented Vital Signs Pulse Oximetry 99 08/03/18 10:52 Last Documented Vital Signs Temperature 98.6 F 08/03/18 11:07 Pulse Rate 65 08/03/18 12:43 Respiratory Rate 18 08/03/18 12:54 Blood Pressure 138/80 08/03/18 12:43 Pulse Oximetry 96 08/03/18 12:43 Medical Decision Making MDM Narrative Medical decision making narrative: Lab work was unremarkable except for low potassium at 3.0. EKG and chest x-ray was unremarkable. Troponin was negative. Patient had a CAT scan which was negative as well. At this point, my plan would be to admit her for further evaluation and treatment. Case was discussed with PA for Dr. Gray for admission. Medical Screen Exam Complete: Yes Emergency Medical Condition: Yes Differential Diagnosis Differential Diagnosis: Gastritis versus pancreatitis versus ACS versus dysrhythmias versus anxiety attack Lab Data Lab results reviewed: Yes I reviewed the patient's lab results. Result diagrams: 08/03/18 10:55 08/03/18 10:55 Lab Results 08/03/18 08/03/18 Range/Units 10:55 10:55 CBC w Diff Auto diff final WBC 4.1 (4.0-11.0) th/mm3 RBC 4.32 (4.00-5.30) mil/mm3 Hgb 12.6 (11.6-15.3) gm/dL Hct 37.6 (35.0-46.0) % MCV 87.2 (80.0-100.0) fL MCH 29.2 (27.0-34.0) pg MCHC 33.5 (32.0-36.0) % RDW 13.9 (11.6-17.2) % Plt Count 208 (150-450) th/mm3 MPV 7.4 (7.0-11.0) fL Neut % (Auto) 55.9 (16.0-70.0) % Lymph % (Auto) 28.7 (9.0-44.0) % [place] % (Auto) 11.7 H (0.0-8.0) % Eos % (Auto) 2.8 (0.0-4.0) % Baso % (Auto) 0.9 (0.0-2.0) % Neut # (Auto) 2.3 (1.8-7.7) th/mm3 Lymph # (Auto) 1.2 (1.0-4.8) th/mm3 [place] # (Auto) 0.5 (0.0-0.9) th/mm3 Eos # (Auto) 0.1 (0.0-0.4) th/mm3 Baso # (Auto) 0.0 (0.0-0.2) th/mm3 WBC Differential . Differential Comment . Sodium 140 (136-145) meq/L Potassium 3.0 L (3.5-5.1) meq/L Chloride 101 (98-107) meq/L Carbon Dioxide 31.9 (21.0-32.0) meq/L Anion Gap 7 (5-15) meq/L BUN 6 L (7-18) mg/dL Creatinine 0.88 (0.50-1.00) mg/dL Estimated GFR 67 L (>89) mL/min Random Glucose 109 H (74-106) mg/dL Calcium 8.8 (8.5-10.1) mg/dL Total Bilirubin 0.7 (0.2-1.0) mg/dL AST 118 H (15-37) U/L ALT 150 H (10-53) U/L Alkaline Phosphatase 74 (45-117) U/L Total Creatine Kinase 331 H (26-192) U/L CK-MB (CK-2) 6.2 H (0.5-3.6) ng/mL CK-MB (CK-2) % 1.9 (0.0-4.0) % Troponin I Less than 0.02 L (0.02-0.05) ng/mL Total Protein 7.3 (6.4-8.2) g/dL Albumin 3.8 (3.4-5.0) g/dL Lipase 113 (73-393) U/L Imaging Data Attestation: I personally reviewed and interpreted this imaging study as follows : Radiologist's impression: Abdomen/Pelvis CT 08/03/18 11:43 Lung bases are clear. There is a small fat-containing diaphragmatic hernia posteriorly on the right. Urinary bladder unremarkable. The patient is status post hysterectomy, appendectomy and cholecystectomy. There is a small fat- containing umbilical hernia. Kidneys, spleen, adrenals and pancreas are unremarkable. There is dilatation of the common bile duct identified up to 1.4 cm. It tapers as it approaches the ampulla. The osseous structures are intact. Coronary artery calcification is seen. Degenerative changes of the lumbar spine are noted. CONCLUSION: 1. Dilated common bile duct is noted in this patient who is status post cholecystectomy. 2. No inflammatory changes are seen in the abdomen or pelvis. 3. Small fat-containing umbilical hernia. Chest X-Ray 08/03/18 11:43 CONCLUSION: No acute disease ECG Data Attestation: I personally reviewed and interpreted this ECG as follows: Interpretation: EKG shows NSR, no ST elevation or depression, and no arrhythmias. No significant T-wave inversions. Discharge Plan Discharge Disposition Patient Disposition: 30 Still Patient Discharge Condition Condition: Stable Discharge Details Anticipated Discharge Date: 08/03/18 Diagnosis: Chest pain Physicians Team ED Provider: Francesco Aguilar Primary Care Provider: Primary Care SaryiAnitha Rxs /Orders / Referrals /Forms Prescriptions: No Action levothyroxine [Synthroid] 25 mcg Tablet PO DAILY RF: 0 gabapentin 100 mg Capsule PO DIRECTED RF: 0 morphine 15 mg Tablet PO DIRECTED PRN (Reason: Pain) RF: 0 oxycodone 10 mg Tablet PO DIRECTED PRN (Reason: Pain) RF: 0 Discharge Instructions Patient Printed Instructions: Chest Pain (ED) Discharge Interventions Interventions: Vital Signs Last Done: 08/03/18 12:43 Status ED Status: With Doctor
[2018-08-03 11:10] LABS: Baso % (Auto) 0.9 % (0.0-2.0); Eos # (Auto) 0.1 th/mm3 (0.0-0.4); Eos % (Auto) 2.8 % (0.0-4.0); Hematocrit 37.6 % (35.0-46.0); Hemoglobin 12.6 gm/dL (11.6-15.3); Lymph # (Auto) 1.2 th/mm3 (1.0-4.8); Lymph % (Auto) 28.7 % (9.0-44.0); Mean Corpuscular HGB Conc 33.5 % (32.0-36.0); Mean Corpuscular Hemoglobin 29.2 pg (27.0-34.0); Mean Corpuscular Volume 87.2 fL (80.0-100.0); Mean Platelet Volume 7.4 fL (7.0-11.0); Mono # (Auto) 0.5 th/mm3 (0.0-0.9); Mono % (Auto) 11.7 % (0.0-8.0); Neut # (Auto) 2.3 th/mm3 (1.8-7.7); Neut % (Auto) 55.9 % (16.0-70.0); Platelet Count 208 th/mm3 (150-450); Red Blood Count 4.32 mil/mm3 (4.00-5.30); Red Cell Distribution Width 13.9 % (11.6-17.2); White Blood Count 4.1 th/mm3 (4.0-11.0)
[2018-08-03 11:22] LABS: Chloride 101 meq/L (98-107); Sodium 140 meq/L (136-145)
[2018-08-03 11:26] LABS: Calcium 8.8 mg/dL (8.5-10.1)
[2018-08-03 11:27] LABS: Albumin 3.8 g/dL (3.4-5.0); Anion Gap 7 meq/L (5-15); Blood Urea Nitrogen 6 mg/dL (7-18); Carbon Dioxide 31.9 meq/L (21.0-32.0); Glucose,Random 109 mg/dL (74-106); Lipase 113 U/L (73-393)
[2018-08-03 11:29] LABS: Alanine Aminotransferase 150 U/L (10-53); Aspartate Aminotransferase 118 U/L (15-37)
[2018-08-03 11:30] LABS: Glomerular Filtration Rate 67 mL/min (>89)
[2018-08-03 11:31] LABS: Total Protein 7.3 g/dL (6.4-8.2)
[2018-08-03 11:32] LABS: Alkaline Phosphatase 74 U/L (45-117); Creatine Kinase 331 U/L (26-192)
[2018-08-03 11:45] LABS: CKMB Percent 1.9 % (0.0-4.0); Creatine Kinase MB 6.2 ng/mL (0.5-3.6)
[2018-08-03] MEDS ORDERED: Potassium Chloride 25 MEQ Effervescent Tablet PO ONE (11:45)
[2018-08-03] MEDS ORDERED: Morphine Inj 4 MG/ML Vial IV.PUSH ONE (12:23)
--- NOTE | 2018-08-03 12:34 | XR ---
EXAM DATE: 08/03/2018 11:43 AM EDT AGE/SEX: 53 years / Female INDICATIONS: Chest pain and nausea. CLINICAL DATA: This is the patient's initial encounter. Patient reports that signs and symptoms have been present for 1 day and indicates a pain score of 6/10. MEDICAL/SURGICAL HISTORY: . Pancreatitis. Myocardial infarction. Hypertension.Graves disease. H epatitis C. Thyroid cancer. . section. Cholecystectomy.Tubal ligation.Appendectomy. Hyster ectomy. Bladder surgery. Coronary stent. COMPARISON: [facility] [place], [place], CHEST SINGLE AP, 02/10/2015. . FINDINGS: A single AP view of the chest demonstrates the lungs to be symmetrically aerated without evidence of mass, infiltrate or effusion. Stable biapical pleural thickening, right worse than left. The cardiome diastinal contours are unremarkable. Osseous structures are intact. CONCLUSION: No acute disease Electronically signed by: Romel Esquivel MD 08/03/2018 12:33 PM EDT
--- NOTE | 2018-08-03 12:57 | CT ---
EXAM DATE: 08/03/2018 12:26 PM EDT AGE/SEX: 53 years / Female INDICATIONS: Epigastric pain. CLINICAL DATA: This is the patient's initial encounter. Patient reports that signs and symptoms have been present for 2 days and indicates a pain score of 10/10. MEDICAL/SURGICAL HISTORY: Myocardial infarction. Pancreatitis. Transient ischemic attack. Nina endectomy. Cholecystectomy. Hysterectomy. ORAL CONTRAST: No oral contrast ingested. RADIATION DOSE: 11.01 CTDI (mGy) COMPARISON: [facility], CT ABDOMEN & PELVIS W CONTRAST, 07/29/2017. . TECHNIQUE: Multiple contiguous axial images were obtained through the abdomen and pelvis following b olus infusion of 95 ml Omnipaque 350 (iohexol) nonionic water-soluble contrast as a single exam dos e. No oral contrast ingested. Using automated exposure control and adjustment of the mA and/or kV ac cording to patient size, radiation dose was kept as low as reasonably achievable to obtain optimal di agnostic quality images. DICOM format image data is available electronically for review and comparis on. FINDINGS: Lung bases are clear. There is a small fat-containing diaphragmatic hernia posteriorly on the right. Urinary bladder unremarkable. The patient is status post hysterectomy, appendectomy and cholecystecto my. There is a small fat-containing umbilical hernia. Kidneys, spleen, adrenals and pancreas are unre markable. There is dilatation of the common bile duct identified up to 1.4 cm. It tapers as it approa ches the ampulla. The osseous structures are intact. Coronary artery calcification is seen. Degenerat arik changes of the lumbar spine are noted. CONCLUSION: 1. Dilated common bile duct is noted in this patient who is status post cholecystectomy. 2. No inflammatory changes are seen in the abdomen or pelvis. 3. Small fat-containing umbilical hernia. Electronically signed by: Ben Cortes MD 08/03/2018 12:56 PM EDT
[2018-08-03] MEDS ORDERED: Acetaminophen 500 MG Tablet PO PRN (13:16)
--- NOTE | 2018-08-03 13:51 | P.HP ---
History of Present Illness Primary Care Physician: No Primary Care Physician Chief Complaint: Abdominal pain/chest pain History of Present Illness: This is a 53-year-old female patient with a known medical history of CAD and ND , TIA and pancreatitis who presented to the ED with complaints of abdominal pain as well as chest pain. Patient states that this chest pain started last evening around 2 AM, she was awoken about asleep, she states that the pain is in her midepigastric area it radiates to her left chest, characterized as heavy in nature, rates the pain an 8 out of 10 at its worst on pain scale and associated with nausea, vomiting, sweating and shortness of breath. She does state that the pain radiates to her left arm as well as up her neck. The pain lasted a couple hours and was relieved when she presented to the ED and given morphine IV, nitroglycerin and aspirin. At the time of assessment, patient is sitting on side of the bed comfortable, still complains of midepigastric pain. She does admit to history of pancreatitis, last bout of pancreatitis was roughly 2 months ago. She follows with a telesales supervisor, had an EGD roughly 1 year ago which was reportedly negative. She does admit to nausea and vomiting as well as abdominal pain times 2 days. Has had minimal intake secondary to emesis. Patient does have history of chronic back pain, states she takes multiple narcotic medications for this. Patient does not currently follow with the general utility machine operator, she admits to history of ND with CAD, her last stress test was 2 years ago which was reportedly negative. She admits to tobacco abuse, quit smoking in 2017. Denies any alcohol or drug use. States her lipids have been well controlled in the past. Denies any hyperlipidemia. He will history significant on both her mother and father's side of ND in their 60s. - Diagnosis (1) Chest pain (2) Abdominal pain Review of Systems All other systems reviewed negative except as stated in HPI PMFSH - History History Provided By: Patient - Medical History Medical History: Medical History (Last Reviewed 08/03/18 @ 13:44 by Mikayla Aguilar) Back pain Myocardial infarct Pancreatitis TIA (transient ischemic attack) - Surgical History Surgical History: Surgical History (Last Reviewed 08/03/18 @ 13:44 by Mikayla Aguilar) S/P appendectomy S/P section S/P cholecystectomy S/P hysterectomy with oophorectomy S/P thyroid surgery - Family History Family History: Family History (Last Updated 08/03/18 @ 14:50 by Mikayla Aguilar) Other Cardiovascular disease - Social History I have reviewed the patient's Social History: Yes - Tobacco History Second Hand Smoke Exposure: No Tobacco Use In Past 30 Days: No Smoking Status: Former smoker Tobacco Type: Cigarettes - Alcohol History How Often Do You Have a Drink Containing Alcohol: Never - Travel History Recent Travel in the [place] Within the Last 8 Weeks: No Recent Travel Out of the Country Within the Last 8 Weeks: No - Immunization History Tetanus Immunization: >5 Years Medications and Allergies Active Medications: Active Medications Acetaminophen (Tylenol) 500 mg PO Q4H PRN PRN Reason: HEADACHE Sodium Chloride (Ns Flush) 2 ml IV.FLUSH BID CAROLE Sodium Chloride (Ns Flush) 2 ml IV.FLUSH PRN PRN PRN Reason: FLUSH AFTER USING IV ACCESS Allergies Allergy/AdvReac Type Severity Reaction Status Date / Time diphenhydramine AdvReac Severe Agitation Verified 08/03/18 11:05 Home Medications Medication Instructions Recorded Confirmed Type gabapentin 200 mg PO TID 08/03/18 08/03/18 History levothyroxine [Synthroid] 125 mcg PO DAILY 08/03/18 08/03/18 History lorazepam [Ativan] 1 mg PO TID 08/03/18 08/03/18 History morphine 100 mg PO TID PRN 08/03/18 08/03/18 History oxycodone 30 mg PO QID PRN 08/03/18 08/03/18 History Exam Vital signs: Vital Signs 08/03/18 10:52 08/03/18 11:07 08/03/18 11:33 Temperature 98.6 F Pulse Rate 66 Respiratory Rate 16 18 Blood Pressure 153/102 H Pulse Oximetry 99 99 08/03/18 12:43 08/03/18 12:54 Temperature Pulse Rate 65 Respiratory Rate 16 18 Blood Pressure 138/80 Pulse Oximetry 96 Intake & Output 08/02/18 08/03/18 08/03/18 18:59 06:59 18:59 Weight 74.9 kg Narrative: GENERAL: Well-developed, well-nourished patient complaint of current abdominal pain. SKIN: Warm and dry. No rash. HEAD: Normocephalic. Atraumatic. EYES: Pupils equal and round. No scleral icterus. No injection or drainage. ENT: No nasal bleeding or discharge. Mucous membranes pink and moist. NECK: Supple. Trachea midline. CARDIOVASCULAR: Regular rate and rhythm. S1, S2 noted. No murmur appreciated. No chest pain to palpation. RESPIRATORY: No accessory muscle use. Clear to auscultation. Breath sounds equal bilaterally. GASTROINTESTINAL: Abdomen soft, nondistended. Normoactive bowel sounds x4. Tenderness to palpation diffusely in all quadrants especially left upper quadrant. MUSCULOSKELETAL: No obvious deformities. Extremities without clubbing, cyanosis , or edema. NEUROLOGICAL: Awake and alert. No obvious cranial nerve deficits. Motor grossly within normal limits. 5/5 muscle strength in bilateral upper and lower extremities. Normal speech. PSYCHIATRIC: Appropriate mood and affect; insight and judgment normal. Results - Labs CBC & Chem 7: 08/03/18 10:55 08/03/18 10:55 Labs: Laboratory Results - last 24 hr 08/03/18 08/03/18 10:55 10:55 CBC w Diff Auto diff final WBC 4.1 RBC 4.32 Hgb 12.6 Hct 37.6 MCV 87.2 MCH 29.2 MCHC 33.5 RDW 13.9 Plt Count 208 MPV 7.4 Neut % (Auto) 55.9 Lymph % (Auto) 28.7 [place] % (Auto) 11.7 H Eos % (Auto) 2.8 Baso % (Auto) 0.9 Neut # (Auto) 2.3 Lymph # (Auto) 1.2 [place] # (Auto) 0.5 Eos # (Auto) 0.1 Baso # (Auto) 0.0 WBC Differential . Differential Comment . Sodium 140 Potassium 3.0 L Chloride 101 Carbon Dioxide 31.9 Anion Gap 7 BUN 6 L Creatinine 0.88 Estimated GFR 67 L Random Glucose 109 H Calcium 8.8 Total Bilirubin 0.7 AST 118 H ALT 150 H Alkaline Phosphatase 74 Total Creatine Kinase 331 H CK-MB (CK-2) 6.2 H CK-MB (CK-2) % 1.9 Troponin I Less than 0.02 L Total Protein 7.3 Albumin 3.8 Lipase 113 - Imaging Impressions Abdomen/Pelvis CT 08/03/18 11:43 Lung bases are clear. There is a small fat-containing diaphragmatic hernia posteriorly on the right. Urinary bladder unremarkable. The patient is status post hysterectomy, appendectomy and cholecystectomy. There is a small fat- containing umbilical hernia. Kidneys, spleen, adrenals and pancreas are unremarkable. There is dilatation of the common bile duct identified up to 1.4 cm. It tapers as it approaches the ampulla. The osseous structures are intact. Coronary artery calcification is seen. Degenerative changes of the lumbar spine are noted. CONCLUSION: 1. Dilated common bile duct is noted in this patient who is status post cholecystectomy. 2. No inflammatory changes are seen in the abdomen or pelvis. 3. Small fat-containing umbilical hernia. Chest X-Ray 08/03/18 11:43 CONCLUSION: No acute disease Caprini VTE Risk Assessment Caprini VTE Risk Assessment: No/Low Risk (score <= 1) Caprini Risk Assessment Model: Point Value = 1 Point Value = 2 Point Value = 3 Point Value = 5 Age 41-60 Minor surgery BMI > 25 kg/m2 Swollen legs Varicose veins or History of unexplained or recurrent spontaneous Oral contraceptives or hormone replacement Sepsis (< 1 month) Serious lung disease, including pneumonia (< 1 month) Abnormal pulmonary function Acute myocardial infarction Congestive heart failure (< 1 month) History of inflammatory bowel disease Medical patient at bed rest Age 61-74 Arthroscopic surgery Major open surgery (> 45 min) Laparoscopic surgery (> 45 min) Malignancy Confined to bed (> 72 hours) Immobilizing plaster cast Central venous access Age >= 75 History of VTE Family history of VTE Factor V Leiden Prothrombin [id number] Lupus anticoagulant Anticardiolipin antibodies Elevated serum homocysteine Heparin-induced thrombocytopenia Other congenital or acquired thrombophilia Stroke (< 1 month) Elective arthroplasty Hip, pelvis, or leg fracture Acute spinal cord injury (< 1 month) Prophylaxis Regimen: Total Risk Factor Score Risk Level Prophylaxis Regimen 0-1 Low Early ambulation 2 Moderate Order ONE of the following: *Sequential Compression Device (SCD) *Heparin 5000 units SQ BID 3-4 Higher Order ONE of the following medications: *Heparin 5000 units SQ TID *Enoxaparin/Lovenox 40 mg SQ daily (WT < 150 kg, CrCl > 30 mL/min) *Enoxaparin/Lovenox 30 mg SQ daily (WT < 150 kg, CrCl > 10-29 mL/min) *Enoxaparin/Lovenox 30 mg SQ BID (WT < 150 kg, CrCl > 30 mL/min) AND/OR *Sequential Compression Device (SCD) 5 or more Highest Order ONE of the following medications: *Heparin 5000 units SQ TID (Preferred with Epidurals) *Enoxaparin/Lovenox 40 mg SQ daily (WT < 150 kg, CrCl > 30 mL/min) *Enoxaparin/Lovenox 30 mg SQ daily (WT < 150 kg, CrCl > 10-29 mL/min) *Enoxaparin/Lovenox 30 mg SQ BID (WT < 150 kg, CrCl > 30 mL/min) AND *Sequential Compression Device (SCD) Assessment and Plan - Assessment (1) Chest pain Code(s): R07.9 - Chest pain, unspecified Status: Acute (2) Abdominal pain Code(s): R10.9 - Unspecified abdominal pain Status: Acute - Plan This is a 53-year-old female patient with: Chest pain History of CAD and ND in the past -Patient presented with left-sided chest pain with associated nausea and vomiting. -Nitroglycerin, aspirin and Morphine IV given in ED. -Patient has been admitted to the chest pain center for observation, serial EKGs and serial troponins have been ordered for ruling out ACS purposes. Initial troponin flat. Monitor trends. -EKG reviewed, showing normal sinus rhythm, controlled heart rate, no ST changes to indicate any ischemia. Will follow trends. -Continue cardiac telemetry, monitor for any arrhythmias. -Chest x-ray reviewed showing no acute disease. -Last stress test 2 years ago which was reportedly negative. Does not currently follow with a general utility machine operator. -If ACS ruled out with serial cardiac troponins and serial EKGs patient will possibly undergo a cardiac stress test in a.m. -Further hospitalization and treatment plan will depend on cardiac stress test results. N.p.o. after midnight. Abdominal pain with associated nausea and vomiting -Abdominal/pelvis CT ordered in ED and reviewed showing no findings to explain etiology abdominal pain. Pancreatitis ruled out. Lipase normal. -Zofran available as needed for nausea. Supportive care. -CBC and BMP reviewed, hypokalemia noted. Elevated liver enzymes. Elevated CPK. Continue IVF. -Will recheck in a.m. and follow. Hypokalemia: Replete as ordered. Check magnesium level. Follow BMP. Chronic back pain: E force database reviewed. Patient takes morphine 100 mg tablet 3 times a day as needed as well as oxycodone 30 mg 4 times a day as needed. Will continue. DVT prophylaxis: SCDs. Discharge Planning: Will undergo cardiac treadmill stress test in a.m.
[2018-08-03] MEDS ORDERED: Aluminum/Magnesium/Simethacone Susp 30 ML UDC PO PRN (14:55)
[2018-08-03 14:57] LABS: Creatine Kinase 280 U/L (26-192)
[2018-08-03 15:09] LABS: CKMB Percent 1.9 % (0.0-4.0); Creatine Kinase MB 5.3 ng/mL (0.5-3.6)
[2018-08-03] MEDS: Pantoprazole Inj 40 MG Vial IV.PUSH SCH (15:41)
[2018-08-03] MEDS: Sod Chloride 0.9% Inj 1,000 ML IV.CONT SCH (15:43)
[2018-08-03] MEDS: Morphine Sulfate 100 MG SR Tablet PO PRN (16:55)
[2018-08-03 17:16] LABS: Creatine Kinase 254 U/L (26-192)
[2018-08-03 17:28] LABS: Creatine Kinase MB 5.1 ng/mL (0.5-3.6)
[2018-08-04] MEDS: Sod Chloride 0.9% Inj 1,000 ML IV.CONT SCH (02:59)
[2018-08-04] MEDS: Morphine Sulfate 100 MG SR Tablet PO PRN ×2 (02:59→12:31)
[2018-08-04 03:25] LABS: Bilirubin,Urine Negative (Negative); Clarity,Urine Clear (Clear); Color,Urine Yellow (Yellw/Straw); Glucose,Urine (UA) Negative (Negative); Leukocyte Esterase,Urine Small (Negative); Nitrite,Urine Negative (Negative); Urobilinogen,Urine 0.2 mg/dL (Less than 2)
[2018-08-04 03:30] LABS: Bacteria,Urine Occasional /hpf; Calcium Oxalate Crystals,Urine Few /hpf; RBC,Urine 0-3 /hpf (0-3); Squamous Epithelial Cell,Urine 0-5 /hpf (0-5)
[2018-08-04 07:46] LABS: Chloride 104 meq/L (98-107); Sodium 141 meq/L (136-145)
[2018-08-04 08:04] LABS: Alanine Aminotransferase 104 U/L (10-53); Albumin 2.9 g/dL (3.4-5.0); Alkaline Phosphatase 81 U/L (45-117); Anion Gap 5 meq/L (5-15); Aspartate Aminotransferase 67 U/L (15-37); Blood Urea Nitrogen 7 mg/dL (7-18); Calcium 7.8 mg/dL (8.5-10.1); Carbon Dioxide 31.8 meq/L (21.0-32.0); Glomerular Filtration Rate 74 mL/min (>89); Glucose,Random 144 mg/dL (74-106); Total Protein 5.5 g/dL (6.4-8.2)
--- NOTE | 2018-08-04 08:54 | P.PNIM ---
Subjective Interval history: Follow-up chest pain. Patient seen and examined, about to perform cardiac treadmill stress test. Uneventful night overnight. No reports of any acute events. Chest pain is resolved. Vital signs stable. Physical Exam Vital signs: Vital Signs 08/03/18 10:52 08/03/18 11:07 08/03/18 11:33 Temperature 98.6 F Pulse Rate 66 Respiratory Rate 16 18 Blood Pressure 153/102 H Pulse Oximetry 99 99 08/03/18 12:43 08/03/18 12:54 08/03/18 14:01 Temperature Pulse Rate 65 64 Respiratory Rate 16 18 16 Blood Pressure 138/80 150/78 H Pulse Oximetry 96 94 L 08/03/18 17:10 08/03/18 18:19 08/03/18 20:00 Temperature 97.7 F 97.9 F Pulse Rate 69 72 68 Respiratory Rate 16 18 Blood Pressure 137/68 105/67 Pulse Oximetry 97 93 L 08/03/18 21:11 08/03/18 21:56 08/03/18 21:59 Temperature 98.7 F Pulse Rate 68 72 Respiratory Rate 18 18 Blood Pressure 107/68 108/60 Pulse Oximetry 94 L 93 L 08/03/18 22:04 08/04/18 00:00 08/04/18 07:58 Temperature 97.8 F Pulse Rate 71 69 Respiratory Rate 18 18 Blood Pressure 111/63 106/72 Pulse Oximetry 94 L 93 L Intake & Output 08/03/18 08/04/18 08/04/18 18:59 06:59 18:59 Intake Total 1000 / 1000 Balance 1000 / 1000 Weight 74.9 kg 74.6 kg Intake: IV 1000 / 1000 NS Inj 1,000 ML @ 84 mls/hr IV. 1000 / 1000 CONT .[id number] [facility] Rx#: [id number] Other: # Voids 2 3 Narrative: GENERAL: Well-developed, well-nourished patient complaint of current abdominal pain. SKIN: Warm and dry. No rash. HEAD: Normocephalic. Atraumatic. EYES: Pupils equal and round. No scleral icterus. No injection or drainage. ENT: No nasal bleeding or discharge. Mucous membranes pink and moist. NECK: Supple. Trachea midline. CARDIOVASCULAR: Regular rate and rhythm. S1, S2 noted. No murmur appreciated. No chest pain to palpation. RESPIRATORY: No accessory muscle use. Clear to auscultation. Breath sounds equal bilaterally. GASTROINTESTINAL: Abdomen soft, nondistended. Normoactive bowel sounds x4. Tenderness to palpation diffusely in all quadrants especially left upper quadrant. MUSCULOSKELETAL: No obvious deformities. Extremities without clubbing, cyanosis , or edema. NEUROLOGICAL: Awake and alert. No obvious cranial nerve deficits. Motor grossly within normal limits. 5/5 muscle strength in bilateral upper and lower extremities. Normal speech. PSYCHIATRIC: Appropriate mood and affect; insight and judgment normal. Results - Labs CBC & Chem 7: 08/03/18 10:55 08/04/18 06:50 Laboratory Results - last 24 hr 08/03/18 08/03/18 08/03/18 10:55 10:55 14:00 CBC w Diff Auto diff final WBC 4.1 RBC 4.32 Hgb 12.6 Hct 37.6 MCV 87.2 MCH 29.2 MCHC 33.5 RDW 13.9 Plt Count 208 MPV 7.4 Neut % (Auto) 55.9 Lymph % (Auto) 28.7 [place] % (Auto) 11.7 H Eos % (Auto) 2.8 Baso % (Auto) 0.9 Neut # (Auto) 2.3 Lymph # (Auto) 1.2 [place] # (Auto) 0.5 Eos # (Auto) 0.1 Baso # (Auto) 0.0 WBC Differential . Differential Comment . Sodium 140 Potassium 3.0 L Chloride 101 Carbon Dioxide 31.9 Anion Gap 7 BUN 6 L Creatinine 0.88 Estimated GFR 67 L Random Glucose 109 H Calcium 8.8 Total Bilirubin 0.7 AST 118 H ALT 150 H Alkaline Phosphatase 74 Total Creatine Kinase 331 H 280 H CK-MB (CK-2) 6.2 H 5.3 H CK-MB (CK-2) % 1.9 1.9 Troponin I Less than 0.02 L Less than 0.02 L Total Protein 7.3 Albumin 3.8 Lipase 113 Urine Color Urine Clarity Urine pH Ur Specific [place] Urine Protein Urine Glucose (UA) Urine Ketones Urine Occult Blood Urine Nitrate Urine Bilirubin Urine Urobilinogen Ur Leukocyte Esterase Urine RBC Urine WBC Urine WBC Clumps Ur Squamous Epith Cells Calcium Oxalate Crystal Urine Bacteria Micro UA Comment Ur Microscopic Review Urine Culture Comments 08/03/18 08/04/18 08/04/18 16:50 03:10 06:50 CBC w Diff WBC RBC Hgb Hct MCV MCH MCHC RDW Plt Count MPV Neut % (Auto) Lymph % (Auto) [place] % (Auto) Eos % (Auto) Baso % (Auto) Neut # (Auto) Lymph # (Auto) [place] # (Auto) Eos # (Auto) Baso # (Auto) WBC Differential Differential Comment Sodium 141 Potassium 3.0 L Chloride 104 Carbon Dioxide 31.8 Anion Gap 5 BUN 7 Creatinine 0.81 Estimated GFR 74 L Random Glucose 144 H Calcium 7.8 L D Total Bilirubin 0.4 AST 67 H ALT 104 H Alkaline Phosphatase 81 Total Creatine Kinase 254 H CK-MB (CK-2) 5.1 H CK-MB (CK-2) % 2.0 Troponin I Less than 0.02 L Total Protein 5.5 L D Albumin 2.9 L D Lipase Urine Color Yellow Urine Clarity Clear Urine pH 6.0 Ur Specific [place] 1.010 Urine Protein Negative Urine Glucose (UA) Negative Urine Ketones Negative Urine Occult Blood Negative Urine Nitrate Negative Urine Bilirubin Negative Urine Urobilinogen 0.2 Ur Leukocyte Esterase Small H Urine RBC 0-3 Urine WBC 9-20 H Urine WBC Clumps Few H Ur Squamous Epith Cells 0-5 Calcium Oxalate Crystal Few H Urine Bacteria Occasional H Micro UA Comment Culture indicated Ur Microscopic Review Microscopic reviewed Urine Culture Comments Culture indicated - Imaging Impressions Abdomen/Pelvis CT 08/03/18 11:43 Lung bases are clear. There is a small fat-containing diaphragmatic hernia posteriorly on the right. Urinary bladder unremarkable. The patient is status post hysterectomy, appendectomy and cholecystectomy. There is a small fat- containing umbilical hernia. Kidneys, spleen, adrenals and pancreas are unremarkable. There is dilatation of the common bile duct identified up to 1.4 cm. It tapers as it approaches the ampulla. The osseous structures are intact. Coronary artery calcification is seen. Degenerative changes of the lumbar spine are noted. CONCLUSION: 1. Dilated common bile duct is noted in this patient who is status post cholecystectomy. 2. No inflammatory changes are seen in the abdomen or pelvis. 3. Small fat-containing umbilical hernia. Chest X-Ray 08/03/18 11:43 CONCLUSION: No acute disease Assessment and Plan - Assessment (1) Chest pain Code(s): R07.9 - Chest pain, unspecified Status: Acute (2) Abdominal pain Code(s): R10.9 - Unspecified abdominal pain Status: Acute - Plan This is a 53-year-old female patient with: Chest pain History of CAD and [place] in the past -Patient presented with left-sided chest pain with associated nausea and vomiting. -Nitroglycerin, aspirin and Morphine IV given in ED. -Patient has been admitted to the chest pain center for observation, serial EKGs and serial troponins have been ordered for ruling out ACS purposes. Troponins flat. -EKG reviewed, showing normal sinus rhythm, controlled heart rate, no ST changes to indicate any ischemia. Will follow trends. -Continue cardiac telemetry, monitor for any arrhythmias. No arrhythmias overnight. -Chest x-ray reviewed showing no acute disease. Pain resolved. -Last stress test 2 years ago which was reportedly negative. Does not currently follow with a fulfillment associate. -ACS ruled out with serial cardiac troponins and serial EKGs, patient will undergo a cardiac stress test morning. -Further hospitalization and treatment plan will depend on cardiac stress test results. Abdominal pain with associated nausea and vomiting -Abdominal/pelvis CT ordered in ED and reviewed showing no findings to explain etiology abdominal pain. Pancreatitis ruled out. Lipase normal. -Zofran available as needed for nausea. Supportive care. -CBC and BMP reviewed, hypokalemia noted. Elevated liver enzymes. Elevated CPK. Continue IVF. Trending down. Hypokalemia: Replete as ordered. Chronic back pain: E force database reviewed. Patient takes morphine 100 mg tablet 3 times a day as needed as well as oxycodone 30 mg 4 times a day as needed. Will continue. DVT prophylaxis: SCDs. Discharge Planning: Will undergo cardiac treadmill stress test in a.m.
--- NOTE | 2018-08-04 09:55 | TR ---
Date Performed: 08/04/2018 Time Performed: 08:49:43 DOCTOR: Doug Alfonso DRUG LIST: CLINICAL HISTORY: CHEST PAIN CHEST PAIN REASON FOR TEST: Chest pain REASON FOR ENDING: OBSERVATION: CONCLUSION: Terrence protocol attempted, test stopped sec to feeling nauseous. Good exercise tolera nce. No reproducible chest discomfort. Good BP response. Recovery quick and unremarkable.Maximum HR=1 15 Target HR Achieved=82.0% Maximum YN=156/80 Total Exercise Time=8:40 COMMENTS: Good exercise tolerance without symptoms. NS ST depression is noted however, While t his is non diagnostic, if history is suggestive further evaluation with nuclear testing might be of v alue.
[2018-08-04] MEDS ORDERED: ALPRAZolam 0.5 MG Tablet PO ONE (10:01)
[2018-08-04 11:00] LABS: Cholesterol 117 mg/dL (120-200)
[2018-08-04 11:08] LABS: Chol/HDL Ratio 2.31 Ratio; HDL Cholesterol 50.5 mg/dL (40.0-60.0); LDL Cholesterol,Calculated 57 mg/dL (0-99); Triglycerides 46 mg/dL (42-150)
[2018-08-04] MEDS ORDERED: Regadenoson Inj 0.4 MG/5 ML Syringe IV.PUSH ONE (13:16)
--- NOTE | 2018-08-04 14:44 | NM ---
EXAM DATE: 08/04/2018 12:51 PM EDT AGE/SEX: 53 years / Female INDICATIONS:Angina. Abnormal Exercise Treadmill Test Mid chest pain for one day. CLINICAL DATA: This is the patient's initial encounter. Patient reports that signs and symptoms have been present for 1 day and indicates a pain score of 3/10. MEDICAL/SURGICAL HISTORY: Myocardial infarction. section. Hysterectomy. Appendectomy . COMPARISON: [facility], MYOCARDIAL PERF PHARM SPECT, 05/07/2016. . No external comparison. DOSE: 8.7 mCi Tc 99m Myoview at rest 26.0 mCi [id number] at stress 0.4 mg Lexiscan STRESS SYMPTOMS: Chest pressure. EJECTION FRACTION: 65 % TECHNIQUE: The patient underwent pharmacologic stress with infusion of prescribed dose. Continuous ECG tracing was monitored during stress. Gated SPECT imaging was performed after stress and conventi onal SPECT imaging was performed at rest. The examination was performed on a SPECT/CT scanner, both attenuation and non-corrected datasets were reviewed. FINDINGS: Distribution: The maximum perfused segment at stress is in the lateral wall. Perfusion Study: Mild decreased perfusion anterior wall appears fixed. Similarly there is a fixed i nferoseptal defect identified. Fixed apical defect. Gated Study: There are intact wall motion and wall thickening without hypokinetic or dyskinetic segm ents. The ejection fraction is calculated at 65%. RISK CATEGORY: Low (<1% Annual Motality Rate) CONCLUSION: 1. No definite reversible perfusion defects are identified to suggest rest induced myocardial Electronically signed by: Ben Cortes MD 08/04/2018 2:43 PM EDT
[2018-08-04] MEDS: Pantoprazole Inj 40 MG Vial IV.PUSH SCH (15:23)
--- NOTE | 2018-08-04 16:11 | TR ---
Date Performed: 08/04/2018 Time Performed: 13:38:20 DOCTOR: Doug Alfonso DRUG LIST: CLINICAL HISTORY: CHEST PAIN CHEST PAIN REASON FOR TEST: ABNORMAL ETT REASON FOR ENDING: OBSERVATION: CONCLUSION: Lexiscan stress test was performed under standard four minute protocol. Radionuclide was injected one minute prior to ending the test. Non specific electrocardiographic abormalities wer e present to suggest ischemia but were non diagnostic. Nuclear imaging and interpretation are pending . COMMENTS:
[2018-08-04 16:15] VITALS: BP 112/78; PULSE 80; RESP 16; TEMP 98.2; O2SAT 98
--- NOTE | 2018-08-05 18:12 | ECG ---
Date Performed: 08/03/2018 Time Performed: 17:15:44 PTAGE: 53 years EKG: Sinus rhythm WITH OCCASIONAL SUPRAVENTRICULAR PREMATURE COMPLEXES SEPTAL MYOCARDIAL INFARCTION NONSPECIFIC ST-T W AVE ABNORMALITY ABNORMAL ECG PREVIOUS TRACING : 08/03/2018 13.47 Since the previous tracing, APC is new DOCTOR: Davey Parra Interpretating Date/Time 08/05/2018 18:11:04
--- NOTE | 2018-08-05 18:14 | ECG ---
Date Performed: 08/03/2018 Time Performed: 10:53:41 PTAGE: 53 years EKG: Sinus rhythm Poor R wave progression PREVIOUS TRACING : 08/20/2017 07.35 Since the previous tracing, no significant change not ed DOCTOR: Ricci Bernstein Interpretating Date/Time 08/05/2018 18:24:01
--- NOTE | 2018-08-05 18:22 | ECG ---
Date Performed: 08/03/2018 Time Performed: 13:47:25 PTAGE: 53 years EKG: Sinus rhythm Poor R wave progression ABNORMAL ECG PREVIOUS TRACING : 08/03/2018 10.53 DOCTOR: Ricci Bernstein Interpretating Date/Time 08/05/2018 18:21:11
== END 2018-08-04 16:52 | disposition home or self-care (01) ==
LOC: PHED 10:46 → PHEDA 10:46 → PH3 14:25
PROVIDERS: ADMIT Internal Medicine; ATTEND Internal Medicine

== ENCOUNTER 2018-08-26 13:04 | Observation (INO) ==
--- NOTE | 2018-08-26 13:21 | ED ---
HPI General Chief Complaint: Seizure Stated Complaint: Poss Seizure Time Seen by Provider: 08/26/18 13:18 Source: patient Mode of arrival: ambulatory Limitations: no limitations History of Present Illness HPI Narrative: 53-year-old female patient with history of seizures currently not on any seizure presents to the ER today because she apparently had a seizure while she was in the friend. The seizure lasted a few minutes and she is now awake and alert. She does not remember what happened. She denies any injuries. She states that the last time she had a seizure, she was seen at [facility] about 2 months ago. They did not put her on any medications. She also has some history of pancreatitis but she denies any significant alcohol use. Related Data Home Medications Medication Instructions Recorded Confirmed gabapentin 400 mg PO TID 08/03/18 08/26/18 levothyroxine [Synthroid] 125 mcg PO DAILY 08/03/18 08/26/18 lorazepam [Ativan] 1 mg PO TID 08/03/18 08/26/18 oxycodone 30 mg PO QID PRN 08/03/18 08/26/18 Previous Rx's Medication Instructions Recorded morphine 100 mg PO Q8H PRN tab 08/04/18 Allergies Allergy/AdvReac Type Severity Reaction Status Date / Time diphenhydramine AdvReac Severe Agitation Verified 08/24/18 22:20 Review of Systems ROS: all other systems reviewed are negative PMFSH History History Provided By: Patient Medical History Medical History Back pain (Acute) Myocardial infarct (Acute) Pancreatitis (Acute) TIA (transient ischemic attack) (Acute) Surgical History Surgical History S/P appendectomy (Acute) S/P section (Acute) S/P cholecystectomy (Acute) S/P hysterectomy with oophorectomy (Acute) S/P thyroid surgery (Acute) Social History Social History Substance History: No History of Abuse Second Hand Smoke Exposure: No Smoking Status: Never smoker Tobacco Type: Cigarettes How Often Do You Have a Drink Containing Alcohol: Never Recent Travel in [facility] within the Last 8 Weeks: No Recent Out of Country Travel within the Last 8 Weeks: No Exam Narrative Exam Narrative: GENERAL: Well-developed middle-age female patient currently in moderate distress. Awake and oriented x3. SKIN: Focused skin assessment warm/dry. HEAD: Atraumatic. Normocephalic. EYES: Pupils equal and round. No scleral icterus. No injection or drainage. ENT: No nasal bleeding or discharge. Mucous membranes pink and moist. NECK: Trachea midline. No JVD. CARDIOVASCULAR: Regular rate and rhythm. No murmur appreciated. RESPIRATORY: No accessory muscle use. Clear to auscultation. Breath sounds equal bilaterally. GASTROINTESTINAL: Abdomen soft, non-tender, nondistended. Hepatic and splenic margins not palpable. MUSCULOSKELETAL: No obvious deformities. No clubbing. No cyanosis. No edema. NEUROLOGICAL: Awake and alert. No obvious cranial nerve deficits. Motor grossly within normal limits. Normal speech. PSYCHIATRIC: Appropriate mood and affect; insight and judgment normal. Course Initial Documented Vital Signs Temperature 100.0 F H 08/26/18 13:06 Pulse Rate 112 H 08/26/18 13:06 Respiratory Rate 20 08/26/18 13:06 Blood Pressure 155/105 H 08/26/18 13:06 Pulse Oximetry 95 08/26/18 13:06 Last Documented Vital Signs Temperature 100.0 F H 08/26/18 13:06 Pulse Rate 75 08/26/18 15:55 Respiratory Rate 17 08/26/18 15:55 Blood Pressure 139/81 08/26/18 15:55 Pulse Oximetry 100 08/26/18 15:55 Medical Decision Making MDM Narrative Medical decision making narrative: Patient denies significant alcohol use. She states that she is on Ativan for anxiety intermittently but only takes a few month. She is currently awake, alert, has no obvious injuries. Did not seem to have incontinence. She was observed in the ER for several hours and appears quite shaky and anxious. She states that she is feels like there is going to be another seizure. CAT scan and lab work was fairly unremarkable. At this point, she is asking that I admit her because she feels like she is going to have another seizures and her seizures have become closer together. My plan would be to admit her as an observation for seizures. Case is discussed with Dr. Lucas for admission. Medical Screen Exam Complete: Yes Emergency Medical Condition: Yes Differential Diagnosis Differential Diagnosis: Alcohol withdrawal seizures versus epileptic seizures versus electrolyte abnormalities versus syncope Lab Data Lab results reviewed: Yes I reviewed the patient's lab results. Result diagrams: 08/26/18 13:50 08/26/18 13:50 Lab Results 08/26/18 08/26/18 Range/Units 13:50 13:50 WBC 5.4 (4.0-11.0) th/mm3 RBC 4.41 (4.00-5.30) mil/mm3 Hgb 13.2 (11.6-15.3) gm/dL Hct 39.7 (35.0-46.0) % MCV 90.0 (80.0-100.0) fL MCH 30.0 (27.0-34.0) pg MCHC 33.3 (32.0-36.0) % RDW 15.7 (11.6-17.2) % Plt Count 184 (150-450) th/mm3 MPV 8.1 (7.0-11.0) fL Neut % (Auto) 60.9 (16.0-70.0) % Lymph % (Auto) 26.3 (9.0-44.0) % [place] % (Auto) 10.8 H (0.0-8.0) % Eos % (Auto) 1.3 (0.0-4.0) % Baso % (Auto) 0.7 (0.0-2.0) % Neut # (Auto) 3.3 (1.8-7.7) th/mm3 Lymph # (Auto) 1.4 (1.0-4.8) th/mm3 [place] # (Auto) 0.6 (0.0-0.9) th/mm3 Eos # (Auto) 0.1 (0.0-0.4) th/mm3 Baso # (Auto) 0.0 (0.0-0.2) th/mm3 WBC Differential . Differential Comment Auto diff final Sodium 141 (136-145) meq/L Potassium 3.7 (3.5-5.1) meq/L Chloride 106 (98-107) meq/L Carbon Dioxide 25.4 (21.0-32.0) meq/L Anion Gap 10 (5-15) meq/L BUN 5 L (7-18) mg/dL Creatinine 1.07 H (0.50-1.00) mg/dL Estimated GFR 53 L (>89) mL/min Random Glucose 98 (74-106) mg/dL Calcium 9.3 (8.5-10.1) mg/dL Magnesium 2.4 (1.5-2.5) mg/dL Imaging Data Attestation: I personally reviewed and interpreted this imaging study as follows : Radiologist's impression: Head CT 08/26/18 13:18 CONCLUSION: Negative CT Head non contrast. . Discharge Plan Discharge Disposition Patient Disposition: 30 Still Patient Discharge Condition Condition: Stable Discharge Details Anticipated Discharge Date: 08/26/18 Diagnosis: Generalized seizure Physicians Team ED Provider: Francesco Aguilar Primary Care Provider: UNKNOWN, Rxs /Orders / Referrals /Forms Prescriptions: No Action levothyroxine [Synthroid] 25 mcg Tablet 125 mcg PO DAILY RF: 0 gabapentin 100 mg Capsule 400 mg PO TID RF: 0 oxycodone 10 mg Tablet 30 mg PO QID PRN (Reason: Pain) RF: 0 lorazepam [Ativan] 1 mg Tablet 1 mg PO TID RF: 0 morphine 100 mg Tablet Extended Release 100 mg PO Q8H PRN (Reason: CHRONIC PAIN) RF: 0 Status ED Status: Admitted Patient
[2018-08-26 14:11] LABS: Baso % (Auto) 0.7 % (0.0-2.0); Eos # (Auto) 0.1 th/mm3 (0.0-0.4); Eos % (Auto) 1.3 % (0.0-4.0); Hematocrit 39.7 % (35.0-46.0); Hemoglobin 13.2 gm/dL (11.6-15.3); Lymph # (Auto) 1.4 th/mm3 (1.0-4.8); Lymph % (Auto) 26.3 % (9.0-44.0); Mean Corpuscular HGB Conc 33.3 % (32.0-36.0); Mean Platelet Volume 8.1 fL (7.0-11.0); Mono # (Auto) 0.6 th/mm3 (0.0-0.9); Mono % (Auto) 10.8 % (0.0-8.0); Neut # (Auto) 3.3 th/mm3 (1.8-7.7); Neut % (Auto) 60.9 % (16.0-70.0); Platelet Count 184 th/mm3 (150-450); Red Blood Count 4.41 mil/mm3 (4.00-5.30); Red Cell Distribution Width 15.7 % (11.6-17.2); White Blood Count 5.4 th/mm3 (4.0-11.0)
--- NOTE | 2018-08-26 14:28 | CT ---
EXAM DATE: 08/26/2018 2:24 PM EST AGE/SEX: 53 years / Female INDICATIONS: Syncope, possible seizure. CLINICAL DATA: This is the patient's initial encounter. Patient reports that signs and symptoms have been present for 1 day and indicates a pain score of 2/10. MEDICAL/SURGICAL HISTORY: Cardiovascular disease. Transient ischemic attack. . Thyroid surgery. RADIATION DOSE: 56.35 CTDI (mGy) COMPARISON: [facility], CT BRAIN W/O CONTRAST, 01/18/2017. . TECHNIQUE: CT of the head without contrast. Using automated exposure control and adjustment of the mA and/or kV according to patient size, radiation dose was kept as low as reasonably achievable to ob tain optimal diagnostic quality images. DICOM format image data is available electronically for revi ew and comparison. FINDINGS: Cerebrum: The ventricles are normal for age. No evidence of midline shift, mass lesion, hemorrhage or acute infarction. No extraaxial fluid collections are seen. Posterior Fossa: The cerebellum and brainstem are intact. The 4th ventricle is midline. The cerebe llopontine angle is unremarkable. Extracranial: The visualized portion of the orbits is intact. Skull: The calvaria is intact. No evidence of skull fracture. CONCLUSION: Negative CT Head non contrast. . Electronically signed by: Gerardo Matos MD 08/26/2018 2:27 PM EST
[2018-08-26 14:32] LABS: Calcium 9.3 mg/dL (8.5-10.1); Carbon Dioxide 25.4 meq/L (21.0-32.0); Magnesium 2.4 mg/dL (1.5-2.5); Potassium 3.7 meq/L (3.5-5.1)
[2018-08-26] MEDS ORDERED: Acetaminophen 500 MG Tablet PO ONE (15:34)
--- NOTE | 2018-08-26 16:37 | P.HPIM ---
History of Present Illness Primary Care Physician: UNKNOWN History of Present Illness: This is a 53-year-old female with history of TIA, coronary artery disease with myocardial infarction, previous history of seizures presented with another episode of seizure. This morning while being a passenger in a car with her friend, she started having seizures described by her friend as rapid movement of upper extremities with upward rolling of eyeballs and loss of consciousness which lasted about 3-5 minutes. She also urinary incontinence. From what she described, it might have been a grand mal seizure. She was also disoriented when she woke up. The first thing she remember after the episode was being in the hospital. Presently, she has a mild headache but denies any neck stiffness. She is nauseated but no vomiting. She denies any fever or chills. During the past few days, she has a mild headache but also no fever, chills or neck stiffness. In retrospect, she usually have seizures but never placed on any antiseizure medications since she will only have it every 2 or 3 years. However this year, she already had 6 episodes of seizures. She does not follow with a neurologist because she lost her insurance which she now got back. Of note, she recently had an accident at work and has been complaining of back pain. There is no history of alcohol abuse. She has Ativan 3 times a day as a prescription but she only takes it 2-3 times a month. Review of Systems All other pertinent systems were reviewed and are negative. [facility] - History History Provided By: Patient - Medical History Medical History: Medical History (Last Reviewed 08/26/18 @ 16:57 by Mary Lucas MD) Thyroid cancer Back pain Myocardial infarct Pancreatitis TIA (transient ischemic attack) - Surgical History Surgical History: Surgical History (Last Reviewed 08/26/18 @ 16:57 by Mary Lucas MD) S/P appendectomy S/P section S/P cholecystectomy S/P hysterectomy with oophorectomy S/P thyroid surgery - Family History Family History: Family History (Last Reviewed 08/26/18 @ 16:57 by Mary Lucas MD) Other Cardiovascular disease - Social History I have reviewed the patient's Social History: Yes - Tobacco History Second Hand Smoke Exposure: No Tobacco Use In Past 30 Days: No Smoking Status: Never smoker Tobacco Type: Cigarettes - Alcohol History How Often Do You Have a Drink Containing Alcohol: Never - Substance Use History Substance History: No History of Abuse - Travel History Recent Travel in the [place] Within the Last 8 Weeks: No Recent Travel Out of the Country Within the Last 8 Weeks: No - Immunization History Tetanus Immunization: Unsure Medications and Allergies Active Medications: Active Medications Sodium Chloride (Ns Flush) 2 ml IV.FLUSH PRN PRN PRN Reason: FLUSH AFTER USING IV ACCESS Allergies Allergy/AdvReac Type Severity Reaction Status Date / Time diphenhydramine AdvReac Severe Agitation Verified 08/24/18 22:20 Home Medications Medication Instructions Recorded Confirmed Type gabapentin 400 mg PO TID 08/03/18 08/26/18 History levothyroxine [Synthroid] 125 mcg PO DAILY 08/03/18 08/26/18 History lorazepam [Ativan] 1 mg PO TID 08/03/18 08/26/18 History oxycodone 30 mg PO QID PRN 08/03/18 08/26/18 History Exam Vital signs: Vital Signs 08/26/18 13:06 08/26/18 13:19 08/26/18 15:55 Temperature 100.0 F H Pulse Rate 112 H 75 Respiratory Rate 20 17 Blood Pressure 155/105 H 139/81 Pulse Oximetry 95 98 100 Intake & Output 08/25/18 08/26/18 08/26/18 18:59 06:59 18:59 Weight 58.967 kg Narrative: Not in distress, well-nourished, looks stated age, anxious. PERRL, pink conjunctiva without injection, anicteric Nose without bleeding, airway patent, oropharynx clear Supple neck, no masses or thyromegaly, trachea midline Normal rate and regular rhythm, no murmurs gallops or rubs appreciated. Clear to auscultation and symmetric bilaterally, normal respiratory effort. Normal bowel sounds, soft, non-tender, nondistended, no guarding. Extremities without clubbing, cyanosis, or edema. No rash of generalized distribution. Skin is warm and dry. AAO x3, no cranial nerve deficits, moves all 4 extremities, no focal neurologic deficits, negative for pronator drift. Results - Labs CBC & Chem 7: 08/26/18 13:50 08/26/18 13:50 Labs: Short CBC 08/26/18 Range/Units 13:50 WBC 5.4 (4.0-11.0) th/mm3 Hgb 13.2 (11.6-15.3) gm/dL Hct 39.7 (35.0-46.0) % Plt Count 184 (150-450) th/mm3 [facility] 08/26/18 13:50 Sodium 141 Potassium 3.7 Chloride 106 Carbon Dioxide 25.4 BUN 5 L Creatinine 1.07 H Calcium 9.3 - Imaging Impressions Head CT 08/26/18 13:18 CONCLUSION: Negative CT Head non contrast. . Caprini VTE Risk Assessment Caprini VTE Risk Assessment: No/Low Risk (score <= 1) Caprini Risk Assessment Model: Point Value = 1 Point Value = 2 Point Value = 3 Point Value = 5 Age 41-60 Minor surgery BMI > 25 kg/m2 Swollen legs Varicose veins or History of unexplained or recurrent spontaneous Oral contraceptives or hormone replacement Sepsis (< 1 month) Serious lung disease, including pneumonia (< 1 month) Abnormal pulmonary function Acute myocardial infarction Congestive heart failure (< 1 month) History of inflammatory bowel disease Medical patient at bed rest Age 61-74 Arthroscopic surgery Major open surgery (> 45 min) Laparoscopic surgery (> 45 min) Malignancy Confined to bed (> 72 hours) Immobilizing plaster cast Central venous access Age >= 75 History of VTE Family history of VTE Factor V Leiden Prothrombin [id number] Lupus anticoagulant Anticardiolipin antibodies Elevated serum homocysteine Heparin-induced thrombocytopenia Other congenital or acquired thrombophilia Stroke (< 1 month) Elective arthroplasty Hip, pelvis, or leg fracture Acute spinal cord injury (< 1 month) Prophylaxis Regimen: Total Risk Factor Score Risk Level Prophylaxis Regimen 0-1 Low Early ambulation 2 Moderate Order ONE of the following: *Sequential Compression Device (SCD) *Heparin 5000 units SQ BID 3-4 Higher Order ONE of the following medications: *Heparin 5000 units SQ TID *Enoxaparin/Lovenox 40 mg SQ daily (WT < 150 kg, CrCl > 30 mL/min) *Enoxaparin/Lovenox 30 mg SQ daily (WT < 150 kg, CrCl > 10-29 mL/min) *Enoxaparin/Lovenox 30 mg SQ BID (WT < 150 kg, CrCl > 30 mL/min) AND/OR *Sequential Compression Device (SCD) 5 or more Highest Order ONE of the following medications: *Heparin 5000 units SQ TID (Preferred with Epidurals) *Enoxaparin/Lovenox 40 mg SQ daily (WT < 150 kg, CrCl > 30 mL/min) *Enoxaparin/Lovenox 30 mg SQ daily (WT < 150 kg, CrCl > 10-29 mL/min) *Enoxaparin/Lovenox 30 mg SQ BID (WT < 150 kg, CrCl > 30 mL/min) AND *Sequential Compression Device (SCD) Assessment and Plan - Plan This is a 53-year-old female with history of coronary artery disease, TIA, and previous history of seizures presented with an episode of grand mal seizures Grand mal seizures-? Epilepsy, consult neurology, check EEG, start Keppra, Ativan as needed. Hypothyroidism-history of thyroid resection from thyroid cancer, restart levothyroxine Neuropathy and chronic pain-continue oxycodone and gabapentin Anxiety-Ativan as needed DVT prophylaxis: Low risk
[2018-08-26] MEDS ORDERED: Morphine Sulfate 100 MG SR Tablet PO PRN (16:42)
[2018-08-26] MEDS ORDERED: Bisacodyl 10 MG Supp RECTAL PRN (16:48)
[2018-08-26] MEDS ORDERED: Sodium Chloride 0.9% 2 ML Flush PRN IV.FLUSH (17:17)
[2018-08-26] MEDS: Sod Chloride 0.9% Inj 1,000 ML IV.CONT SCH (17:30)
[2018-08-26] MEDS: Gabapentin 400 MG Capsule PO SCH (18:08)
[2018-08-26] MEDS: Sodium Chloride 0.9% 2 ML Flush BID IV.FLUSH SCH (20:51)
[2018-08-26] MEDS: Morphine Sulfate 100 MG SR Tablet PO SCH (20:51)
[2018-08-27] MEDS: Morphine Sulfate 100 MG SR Tablet PO SCH ×3 (04:39→21:03)
[2018-08-27] MEDS: Sod Chloride 0.9% Inj 1,000 ML IV.CONT SCH ×2 (04:40→17:34)
[2018-08-27] MEDS: LORazepam 1 MG Tablet PO PRN ×2 (06:32→17:49)
[2018-08-27 08:45] LABS: Baso % (Auto) 0.7 % (0.0-2.0); Eos # (Auto) 0.3 th/mm3 (0.0-0.4); Eos % (Auto) 4.2 % (0.0-4.0); Hematocrit 33.7 % (35.0-46.0); Hemoglobin 11.5 gm/dL (11.6-15.3); Lymph % (Auto) 31.4 % (9.0-44.0); Mean Corpuscular HGB Conc 34.1 % (32.0-36.0); Mean Platelet Volume 8.5 fL (7.0-11.0); Mono # (Auto) 0.6 th/mm3 (0.0-0.9); Mono % (Auto) 9.6 % (0.0-8.0); Neut # (Auto) 3.4 th/mm3 (1.8-7.7); Neut % (Auto) 54.1 % (16.0-70.0); Platelet Count 161 th/mm3 (150-450); Red Blood Count 3.83 mil/mm3 (4.00-5.30); Red Cell Distribution Width 15.3 % (11.6-17.2); White Blood Count 6.3 th/mm3 (4.0-11.0)
[2018-08-27] MEDS: Gabapentin 400 MG Capsule PO SCH ×3 (08:59→17:33)
[2018-08-27] MEDS: Sodium Chloride 0.9% 2 ML Flush BID IV.FLUSH SCH ×2 (09:00→21:04)
[2018-08-27 09:06] LABS: Calcium 7.6 mg/dL (8.5-10.1); Potassium 3.6 meq/L (3.5-5.1)
--- NOTE | 2018-08-27 11:46 | P.PNIM ---
Subjective Interval history: feels scared because seizures have been happening frequently, she has had six in the last few weeks. feeling dizzy on standing today. Physical Exam Vital signs: Last Vital Signs Temp 98.1 F 08/27/18 08:00 Pulse 64 08/27/18 09:00 Resp 16 08/27/18 08:00 BP 100/61 08/27/18 08:00 Pulse Ox 96 08/27/18 08:00 Intake & Output 08/25/18 08/26/18 08/27/18 08/28/18 06:59 06:59 06:59 06:59 Intake Total 1105 / 1105 105 / 105 Balance 1105 / 1105 105 / 105 Weight 63.503 kg Narrative: GENERAL: not in distress. HEENT:not pale,anicteric CARDIOVASCULAR: Regular rate and rhythm without murmurs, gallops, or rubs. RESPIRATORY: Clear to auscultation. Breath sounds equal bilaterally. No wheezes , rales, or rhonchi. GASTROINTESTINAL: Abdomen soft, non-tender, nondistended. Normal active bowel sounds MUSCULOSKELETAL: Extremities without clubbing, cyanosis, or edema. NEURO: Alert & Oriented x4 to person, place, time, situation. Moves all ext x4. Heel to enriquez normal bilaterally, no disdiadokinesia. Results Labs CBC & Chem 7: 08/27/18 06:59 08/27/18 06:59 Imaging Imaging: Impressions Head CT 08/26/18 13:18 CONCLUSION: Negative CT Head non contrast. . Assessment and Plan Plan 53-year-old female with history of coronary artery disease, TIA, and previous history of seizures presented with an episode of grand mal seizures acute problem: 1.Grand mal seizures-has had several in the last few months. CT head was negative.EEG done this am.continue keppra for now pending neurology consult , Ativan as needed for breakthrough seizures.May need brain MRI for further eval, will defer to neurology recs. Stable chronic conditions: #Hypothyroidism-history of thyroid resection from thyroid cancer, cont levothyroxine #Neuropathy and chronic pain-continue oxycodone and gabapentin #Anxiety-Ativan as needed DVT prophylaxis: Low risk Progress Note: Quality VTE Deep Vein Thrombosis/Pulmonary Embolism Present on Admission: No
--- NOTE | 2018-08-27 22:04 | MG ---
cc: Bakari Hollingsworth MD, PhD DATE OF STUDY: 08/27/2018 TEST NUMBER: [id number] TECHNIQUE: A 17-channel EEG. DESCRIPTION: Background rhythm reveals a symmetrical alpha, frequency 8-10 Hz, amplitude 20 microvolts. Occasional muscle artifact identified. No lateralizing features are identified. During drowsiness, there is mild slowing in theta. Photic is normal. The patient does seem to fall asleep and vertex sharp waves are seen with sleep spindles. INTERPRETATION: This is a normal awake and asleep electroencephalogram. Bakari Hollingsworth MD, PhD NAVDEEP/rw , 09:31 PM , 09:34 PM
--- NOTE | 2018-08-27 22:49 | MB ---
cc: Bakari Hollingsworth MD, PhD DATE: 08/27/2018 REASON FOR CONSULTATION: Recurrent seizure. HISTORY OF PRESENT ILLNESS: Ms. Olivas is a 53-year-old female who has a history of intermittent grand mal seizures for the past 3 years where she loses consciousness. She is admitted with a recurrent seizure with loss of consciousness and bladder incontinence. She has never been on any seizure medications. She does have a history of head trauma in 2006 with loss of consciousness. No history of meningitis or encephalitis. CURRENT MEDICATIONS: 1. She was started on Keppra here in the hospital at 500 mg IV b.i.d. 2. Gabapentin 400 mg t.i.d. 3. Dulcolax. 4. Ativan p.r.n. 5. Synthroid. 6. Oramorph. 7. Roxicodone. 8. Senokot. NEUROLOGIC EXAMINATION: VITAL SIGNS: Blood pressure 106/58, pulse 70, temperature 98.6 degrees, respirations 18. HIGHER CORTICAL FUNCTION: Normal. CRANIAL NERVES: Intact. MOTOR: 5/5 strength in all motor groups. There is no drift. Fine motor skills normal. Reflexes are symmetric. DIAGNOSTIC DATA: EEG is unremarkable. CT brain is within normal limits. LABORATORY DATA: White count 6300, hemoglobin 11.5, hematocrit 33%, platelets 161,000. Sodium 145, potassium 3.6, chloride 110, CO2 of 28, BUN 14, creatinine 0.91, GFR 64, glucose 79. IMPRESSION: Recurrent generalized seizures, possibly related to prior head trauma. RECOMMENDATION: We will switch Keppra to p.o. 1000 mg b.i.d. and also obtain a brain MRI. Bakari Hollingsworth MD, PhD NAV[facility]EP/[place] , 09:42 PM , 09:48 PM
[2018-08-28] MEDS: Sod Chloride 0.9% Inj 1,000 ML IV.CONT SCH ×2 (05:25→18:10)
[2018-08-28] MEDS: Morphine Sulfate 100 MG SR Tablet PO SCH ×3 (05:25→21:45)
[2018-08-28] MEDS: Sodium Chloride 0.9% 2 ML Flush BID IV.FLUSH SCH ×2 (08:09→21:47)
[2018-08-28] MEDS: Gabapentin 400 MG Capsule PO SCH ×3 (08:11→18:11)
[2018-08-28] MEDS: levETIRAcetam 500 MG Tablet PO SCH ×2 (08:11→21:45)
[2018-08-28] MEDS ORDERED: Gadobutrol PF 7.5 MMOL/7.5 ML Vial (for RAD) IV.SIG ONE (09:10)
--- NOTE | 2018-08-28 09:11 | MR ---
EXAM DATE: 08/28/2018 9:07 AM EST AGE/SEX: 53 years / Female INDICATIONS: Seizures. Multiple seizures two days ago with loss of breathing during seizure activ ity. CLINICAL DATA: This is the patient's initial encounter. Patient reports that signs and symptoms have been present for 2 days and indicates a pain score of 7/10. MEDICAL/SURGICAL HISTORY: Seizures. Carcinoma, thyroid. Pancreatitis. Cardiac, Hep C. Ernestine cystectomy. section. Heart coil 15 years ago, Stent place in pancreatis, Bladder mesh sx. COMPARISON: [facility] [place], CT HEAD W/O CONTRAST, 08/26/2018. . TECHNIQUE: Multiplanar, multisequence examination of the brain was performed without and with 7 ml Ga davist (gadobutrol) contrast as a single exam dose. FINDINGS: CSF spaces, ventricles and cisterns are of normal size and configuration. Signal intensity of the bra in is normal. There is no evidence for acute infarction on diffusion-weighted imaging. There are no s igns of intracranial hemorrhage or mass. There is bilateral proptosis. There are no abnormal areas of enhancement identified. CONCLUSION: 1. Normal appearance of the brain. 2. Proptosis bilaterally. Electronically signed by: Ben Cortes MD 08/28/2018 9:10 AM EST
--- NOTE | 2018-08-28 11:01 | P.PNIM ---
Subjective Interval history: feeling nauseated, weak. Physical Exam Vital signs: Last Vital Signs Temp 98.9 F 08/28/18 07:43 Pulse 75 08/28/18 07:43 Resp 16 08/28/18 07:43 BP 128/77 08/28/18 07:43 Pulse Ox 94 L 08/28/18 07:43 Intake & Output 08/26/18 08/27/18 08/28/18 08/29/18 06:59 06:59 06:59 06:59 Intake Total 1105 / 1105 2810 / 2810 Balance 1105 / 1105 2810 / 2810 Weight 63.503 kg Narrative: GENERAL: not in distress. HEENT:not pale,anicteric,proptosis CARDIOVASCULAR: Regular rate and rhythm without murmurs, gallops, or rubs. RESPIRATORY: Clear to auscultation. Breath sounds equal bilaterally. No wheezes , rales, or rhonchi. GASTROINTESTINAL: Abdomen soft, non-tender, nondistended. Normal active bowel sounds MUSCULOSKELETAL: Extremities without clubbing, cyanosis, or edema. NEURO: Alert & Oriented x4 to person, place, time, situation. Moves all ext x4. Heel to enriquez normal bilaterally, no disdiadokinesia. Results Labs CBC & Chem 7: 08/27/18 06:59 08/27/18 06:59 Imaging Imaging: Impressions Head MRI 08/28/18 00:00 CONCLUSION: 1. Normal appearance of the brain. 2. Proptosis bilaterally. Assessment and Plan Plan 53-year-old female with history of coronary artery disease, TIA, and previous history of seizures presented with an episode of grand mal seizures acute problem: 1.Grand mal seizures-has had several in the last few months. CT head was negative.EEG done this am.continue keppra increased to 1gm q12h , Ativan as needed for breakthrough seizures. MRI brain is normal. appreciate neurology consult recs. Stable chronic conditions: #Hypothyroidism-history of thyroid resection from thyroid cancer, cont levothyroxine #Neuropathy and chronic pain-continue oxycodone and gabapentin #Anxiety-Ativan as needed DVT prophylaxis: Low risk Progress Note: Quality VTE Deep Vein Thrombosis/Pulmonary Embolism Present on Admission: No
[2018-08-28] MEDS: LORazepam 1 MG Tablet PO PRN (15:52)
[2018-08-29 03:27] VITALS: TEMP 98.7
[2018-08-29] MEDS: LORazepam 1 MG Tablet PO PRN ×2 (03:43→10:43)
[2018-08-29] MEDS: Sod Chloride 0.9% Inj 1,000 ML IV.CONT SCH ×2 (05:33→05:45)
[2018-08-29] MEDS: Morphine Sulfate 100 MG SR Tablet PO SCH ×2 (05:44→12:05)
[2018-08-29 08:37] VITALS: O2SAT 97
--- NOTE | 2018-08-29 09:05 | P.DS ---
Date of admission: 08/26/18 16:25 Primary care physician: UNKNOWN Brief History from admission: HPI as documented by the admitting provider: This is a 53-year-old female with history of TIA, coronary artery disease with myocardial infarction, previous history of seizures presented with another episode of seizure. This morning while being a passenger in a car with her friend, she started having seizures described by her friend as rapid movement of upper extremities with upward rolling of eyeballs and loss of consciousness which lasted about 3-5 minutes. She also urinary incontinence. From what she described, it might have been a grand mal seizure. She was also disoriented when she woke up. The first thing she remember after the episode was being in the hospital. Presently, she has a mild headache but denies any neck stiffness. She is nauseated but no vomiting. She denies any fever or chills. During the past few days, she has a mild headache but also no fever, chills or neck stiffness. In retrospect, she usually have seizures but never placed on any antiseizure medications since she will only have it every 2 or 3 years. However this year, she already had 6 episodes of seizures. She does not follow with a neurologist because she lost her insurance which she now got back. Of note, she recently had an accident at work and has been complaining of back pain. There is no history of alcohol abuse. She has Ativan 3 times a day as a prescription but she only takes it 2-3 times a month. Patient update on day of discharge: Patient reports she is feeling okay today. No further seizure activities. DS: Diagnosis - Discharge Diagnosis (1) Generalized seizure Status: Acute DS: Medications - Discharge Medications Prescriptions: levetiracetam [Keppra] 1,000 mg PO BID #60 tab DS: Summary Hospital Course: 53-year-old female with history of coronary artery disease, TIA, and previous history of seizures presented with an episode of grand mal seizures Breakthrough seizures: - CT of the brain is negative. EEG negative. - Appreciate neurology following. Keppra dose increased to 1 g every 12 hours. Patient did not experience any further seizure activities. - She is discharged home in stable condition and advised to not drive, no swimming, do not operate heavy machinery. Chronic pain and neuropathy: Continue same home dose medications. Patient requested a day supply until she can return to her PCP tomorrow. However when I checked [facility], her prescriptions were all filled on the 12th and she has been in the hospital for 4 days. Advised her to return to her pain management doctor tomorrow. Stable chronic conditions: #Hypothyroidism-history of thyroid resection from thyroid cancer, cont levothyroxine #Anxiety-Ativan as needed - Time Spent with Patient Total time spent providing and/or coordinating discharge services: Less than 30 minutes - Quality: VTE Deep Vein Thrombosis/Pulmonary Embolism Present on Admission: No Exam Vital signs: Vital Signs 08/28/18 12:00 08/28/18 16:00 08/28/18 20:00 Temperature 99.4 F 98.7 F Pulse Rate 63 68 82 Respiratory Rate 16 16 16 Blood Pressure 124/74 123/65 129/83 Pulse Oximetry 98 98 93 L 08/29/18 00:00 08/29/18 03:27 08/29/18 08:00 Temperature 99.4 F 98.7 F 98.7 F Pulse Rate 72 73 59 L Respiratory Rate 18 18 18 Blood Pressure 119/84 112/65 128/74 Pulse Oximetry 94 L 94 L 97 Intake & Output 08/28/18 08/29/18 08/29/18 18:59 06:59 18:59 Intake Total 600 / 600 Balance 600 / 600 Intake: IV 600 / 600 NS Inj 1,000 ML @ 84 mls/hr IV. 600 / 600 CONT .[id number] [facility] Rx#:[id number] Other: Date of Last Bowel Movement 08/26/18 Narrative: GENERAL: This is a well-nourished, well-developed patient, in no apparent distress. CARDIOVASCULAR: Normal rate and regular rhythm without murmurs, gallops, or rubs. RESPIRATORY: Good respiratory efforts. Breath sounds equal and clear to auscultation bilaterally. GASTROINTESTINAL: Abdomen soft, non-tender, non-distended. Normal active bowel sounds MUSCULOSKELETAL: Extremities without cyanosis, or edema. NEURO: Alert & Oriented x4 to person, place, time, situation. Moves all ext x4 PSYCH: Appropriate mood and affect. Results Procedures completed during hospitalization: None - Impressions ITS Impressions Head CT 08/26/18 13:18 CONCLUSION: Negative CT Head non contrast. . Head MRI 08/28/18 00:00 CONCLUSION: 1. Normal appearance of the brain. 2. Proptosis bilaterally. Discharge Plan - Discharge Disposition Patient Disposition: 01 Discharge Home - Discharge Condition Condition: Stable - Discharge Order Discharge Orders: Discharge Order (Routine); Ordered 08/29/18 Ordered By: Bryan Bynum - Discharge Details Anticipated Discharge Date: 08/26/18 - Physicians Team Primary Care Provider: UNKNOWN, Attending Provider: Bryan Bynum Other Providers: Bakari Hollingsworth MD, PhD
[2018-08-29] MEDS: Gabapentin 400 MG Capsule PO SCH ×2 (09:10→12:05)
[2018-08-29] MEDS: levETIRAcetam 500 MG Tablet PO SCH (09:23)
[2018-08-29] MEDS: Sodium Chloride 0.9% 2 ML Flush BID IV.FLUSH SCH (11:48)
[2018-08-29 12:19] VITALS: BP 116/73; PULSE 65
[2018-08-29 12:47] VITALS: RESP 18
== END 2018-08-29 14:53 | disposition home or self-care (01) ==
LOC: NEPC 13:04 → NEDA 13:04 → NEPFCDU 17:38
PROVIDERS: ADMIT Family Medicine; ATTEND Family Medicine

== ENCOUNTER 2018-10-16 08:01 | Observation (INO) ==
[2018-10-16] MEDS ORDERED: HYDROmorphone PF Inj 2 MG/ML Vial IV.PUSH ONE ×2 (09:54→10:59)
[2018-10-16] MEDS ORDERED: Sod Chloride 0.9% Inj 1,000 ML IV.SIG SCH (10:00)
[2018-10-16 10:41] LABS: Baso % (Auto) 0.8 % (0.0-2.0); Eos % (Auto) 0.2 % (0.0-4.0); Hematocrit 41.4 % (35.0-46.0); Hemoglobin 13.8 gm/dL (11.6-15.3); Lymph # (Auto) 1.1 th/mm3 (1.0-4.8); Lymph % (Auto) 22.2 % (9.0-44.0); Mean Corpuscular HGB Conc 33.2 % (32.0-36.0); Mean Corpuscular Hemoglobin 29.9 pg (27.0-34.0); Mean Corpuscular Volume 89.9 fL (80.0-100.0); Mean Platelet Volume 8.6 fL (7.0-11.0); Mono # (Auto) 0.3 th/mm3 (0.0-0.9); Mono % (Auto) 5.9 % (0.0-8.0); Neut # (Auto) 3.6 th/mm3 (1.8-7.7); Neut % (Auto) 70.9 % (16.0-70.0); Platelet Count 214 th/mm3 (150-450); Red Blood Count 4.61 mil/mm3 (4.00-5.30); Red Cell Distribution Width 14.2 % (11.6-17.2); White Blood Count 5.1 th/mm3 (4.0-11.0)
[2018-10-16 10:50] LABS: Bacteria,Urine Rare /hpf; Bilirubin,Urine Negative (Negative); Clarity,Urine Hazy (Clear); Color,Urine Yellow (Yellw/Straw); Glucose,Urine (UA) Negative (Negative); Leukocyte Esterase,Urine Large (Negative); Mucus,Urine Moderate /lpf (Occasional); Nitrite,Urine Negative (Negative); Specific Gravity,Urine 1.023 (1.002-1.035); Squamous Epithelial Cell,Urine 4 /hpf (0-5)
[2018-10-16 10:58] LABS: Alanine Aminotransferase 111 U/L (10-53); Albumin 3.9 g/dL (3.4-5.0); Alkaline Phosphatase 87 U/L (45-117); Anion Gap 13 meq/L (5-15); Aspartate Aminotransferase 86 U/L (15-37); Blood Urea Nitrogen 13 mg/dL (7-18); Carbon Dioxide 22.6 meq/L (21.0-32.0); Chloride 106 meq/L (98-107); Glomerular Filtration Rate 65 mL/min (>89); Glucose,Random 108 mg/dL (74-106); Lipase 778 U/L (73-393); Magnesium 2.2 mg/dL (1.5-2.5); Potassium 3.5 meq/L (3.5-5.1); Sodium 142 meq/L (136-145); Total Protein 7.7 g/dL (6.4-8.2)
--- NOTE | 2018-10-16 12:59 | ED ---
HPI General Chief complaint: Abdominal Pain Stated complaint: Abd pain/vomitting/diarrhea Time Seen by Provider: 10/16/18 09:16 History of Present Illness HPI narrative: Patient is a 53-year-old female with a history of recurrent pancreatitis from unknown cause presents emergency department for continued abdominal pain diarrhea nausea and vomiting for the past 3-4 days. She was actually evaluated here 2 days ago for similar. No fevers no cough no congestion no blood in the stool. States the pain is severe, upper abdomen, no radiation, associated signs and symptoms in context as above. Related Data Home Medications Medication Instructions Recorded Confirmed gabapentin 400 mg PO TID 08/03/18 10/16/18 levothyroxine [Synthroid] 125 mcg PO DAILY 08/03/18 10/16/18 lorazepam [Ativan] 1 mg PO TID PRN 08/03/18 10/16/18 oxycodone 30 mg PO QID PRN 08/03/18 10/16/18 Previous Rx's Medication Instructions Recorded morphine 100 mg PO Q8H PRN tab 08/04/18 levetiracetam [Keppra] 1,000 mg PO BID #60 tab 08/29/18 sulfamethoxazole-trimethoprim 1 tab PO Q12H #14 tab 10/13/18 [Bactrim DS] Allergies Allergy/AdvReac Type Severity Reaction Status Date / Time diphenhydramine AdvReac Severe Agitation Verified 10/16/18 08:21 Review of Systems ROS: all other systems reviewed are negative [facility] Medical History Medical History Hypertension (Acute) Back pain (Acute) Myocardial infarct (Acute) Pancreatitis (Acute) TIA (transient ischemic attack) (Acute) Thyroid cancer (Acute) Surgical History Surgical History S/P appendectomy (Acute) S/P section (Acute) S/P cholecystectomy (Acute) S/P hysterectomy with oophorectomy (Acute) S/P thyroid surgery (Acute) Family History Family History Other Cardiovascular disease Social History Social History Substance History: No History of Abuse Second Hand Smoke Exposure: No Smoking Status: Never smoker Tobacco Type: Cigarettes How Often Do You Have a Drink Containing Alcohol: Never Recent Travel in [facility] within the Last 8 Weeks: No Recent Out of Country Travel within the Last 8 Weeks: No Immunization History Tetanus Immunization: <5 Years Exam Narrative Exam Narrative: GENERAL: Well-developed well-nourished appears quite uncomfortable. SKIN: Focused skin assessment warm/dry. HEAD: Atraumatic. Normocephalic. EYES: Pupils equal and round. No scleral icterus. No injection or drainage. ENT: No nasal bleeding or discharge. Mucous membranes pink and moist. NECK: Trachea midline. No JVD. CARDIOVASCULAR: Regular rate and rhythm. No murmur appreciated. RESPIRATORY: No accessory muscle use. Clear to auscultation. Breath sounds equal bilaterally. GASTROINTESTINAL: Abdomen soft, moderately tender in the epigastric area which the patient can be distracted from. No rebound no percussive tenderness. Abdomen soft. MUSCULOSKELETAL: No obvious deformities. No clubbing. No cyanosis. No edema. NEUROLOGICAL: Awake and alert. No obvious cranial nerve deficits. Motor grossly within normal limits. Normal speech. PSYCHIATRIC: Appropriate mood and affect; insight and judgment normal. Course Initial Documented Vital Signs Temperature 98.7 F 10/16/18 08:07 Pulse Rate 86 10/16/18 08:07 Respiratory Rate 20 10/16/18 08:07 Blood Pressure 144/67 H 10/16/18 08:07 Pulse Oximetry 98 10/16/18 08:07 Last Documented Vital Signs Temperature 98.2 F 10/16/18 23:25 Pulse Rate 61 10/16/18 23:25 Respiratory Rate 18 10/17/18 05:36 Blood Pressure 104/58 L 10/16/18 23:25 Pulse Oximetry 96 10/16/18 23:25 Medical Decision Making [facility] Narrative Medical decision making narrative: Patient room to the emergency department, she appears fairly uncomfortable, tender in the upper abdomen, total of 2 mg of Dilaudid was given in divided doses, Zofran, Phenergan, the patient still appears fairly uncomfortable. Lipase minimally elevated to 700 which is an acute change from 2 days ago when she was here had basic labs as well as a CAT scan of her abdomen which was negative. Discussed with her that we could admit her for her pancreatitis and for pain control and she is agreeable. Medical Screen Exam Complete: Yes Emergency Medical Condition: Yes Lab Data Result diagrams: 10/17/18 06:36 10/16/18 10:08 Lab Results 10/16/18 10/16/18 10/16/18 Range/Units 10:08 10:08 10:08 WBC 5.1 (4.0-11.0) th/mm3 RBC 4.61 (4.00-5.30) mil/mm3 Hgb 13.8 (11.6-15.3) gm/dL Hct 41.4 (35.0-46.0) % MCV 89.9 (80.0-100.0) fL MCH 29.9 (27.0-34.0) pg MCHC 33.2 (32.0-36.0) % RDW 14.2 (11.6-17.2) % Plt Count 214 (150-450) th/mm3 MPV 8.6 (7.0-11.0) fL Neut % (Auto) 70.9 H (16.0-70.0) % Lymph % (Auto) 22.2 (9.0-44.0) % Whitman % (Auto) 5.9 (0.0-8.0) % Eos % (Auto) 0.2 (0.0-4.0) % Baso % (Auto) 0.8 (0.0-2.0) % Neut # (Auto) 3.6 (1.8-7.7) th/mm3 Lymph # (Auto) 1.1 (1.0-4.8) th/mm3 Whitman # (Auto) 0.3 (0.0-0.9) th/mm3 Eos # (Auto) 0.0 (0.0-0.4) th/mm3 Baso # (Auto) 0.0 (0.0-0.2) th/mm3 WBC Differential . Differential Comment Auto diff final Sodium 142 (136-145) meq/L Potassium 3.5 (3.5-5.1) meq/L Chloride 106 (98-107) meq/L Carbon Dioxide 22.6 (21.0-32.0) meq/L Anion Gap 13 (5-15) meq/L BUN 13 (7-18) mg/dL Creatinine 0.90 (0.50-1.00) mg/dL Estimated GFR 65 L (>89) mL/min POC Glucose (68-110) mg/dl Random Glucose 108 H (74-106) mg/dL Calcium 9.0 (8.5-10.1) mg/dL Magnesium 2.2 (1.5-2.5) mg/dL Total Bilirubin 0.8 (0.2-1.0) mg/dL AST 86 H (15-37) U/L ALT 111 H (10-53) U/L Alkaline Phosphatase 87 (45-117) U/L Total Protein 7.7 (6.4-8.2) g/dL Albumin 3.9 (3.4-5.0) g/dL Lipase 778 H (73-393) U/L Urine Color Yellow (Yellw/Straw) Urine Clarity Hazy H (Clear) Urine pH 6.0 (5.0-8.5) Ur Specific Peebles 1.023 (1.002-1.035) Urine Protein 30 H (Neg-Trace) mg/dL Urine Glucose (UA) Negative (Negative) mg/dL Urine Ketones 20 (Negative) mg/dL Urine Occult Blood Negative (Negative) Urine Nitrate Negative (Negative) Urine Bilirubin Negative (Negative) Urine Urobilinogen Less than 2 (Less than 2) mg/dL Ur Leukocyte Esterase Large H (Negative) Urine RBC 1 (0-3) /hpf Urine WBC 32 H (0-5) /hpf Ur Squamous Epith Cells 4 (0-5) /hpf Urine Bacteria Rare H (None) /hpf Urine Mucus Moderate H (Occasional) /lpf Micro UA Comment Culture indicated Ur Microscopic Review Microscopic reviewed Urine Culture Comments Culture indicated 10/17/18 10/17/18 Range/Units 00:08 06:36 WBC 4.6 (4.0-11.0) th/mm3 RBC 3.92 L (4.00-5.30) mil/mm3 Hgb 11.8 D (11.6-15.3) gm/dL Hct 34.5 L (35.0-46.0) % MCV 88.2 (80.0-100.0) fL MCH 30.2 (27.0-34.0) pg MCHC 34.3 (32.0-36.0) % RDW 14.1 (11.6-17.2) % Plt Count 174 (150-450) th/mm3 MPV 7.8 (7.0-11.0) fL Neut % (Auto) 50.2 (16.0-70.0) % Lymph % (Auto) 34.3 (9.0-44.0) % Whitman % (Auto) 12.4 H (0.0-8.0) % Eos % (Auto) 2.5 (0.0-4.0) % Baso % (Auto) 0.6 (0.0-2.0) % Neut # (Auto) 2.3 (1.8-7.7) th/mm3 Lymph # (Auto) 1.6 (1.0-4.8) th/mm3 Whitman # (Auto) 0.6 (0.0-0.9) th/mm3 Eos # (Auto) 0.1 (0.0-0.4) th/mm3 Baso # (Auto) 0.0 (0.0-0.2) th/mm3 WBC Differential . Differential Comment Auto diff final Sodium (136-145) meq/L Potassium (3.5-5.1) meq/L Chloride (98-107) meq/L Carbon Dioxide (21.0-32.0) meq/L Anion Gap (5-15) meq/L BUN (7-18) mg/dL Creatinine (0.50-1.00) mg/dL Estimated GFR (>89) mL/min POC Glucose 121 H (68-110) mg/dl Random Glucose (74-106) mg/dL Calcium (8.5-10.1) mg/dL Magnesium (1.5-2.5) mg/dL Total Bilirubin (0.2-1.0) mg/dL AST (15-37) U/L ALT (10-53) U/L Alkaline Phosphatase (45-117) U/L Total Protein (6.4-8.2) g/dL Albumin (3.4-5.0) g/dL Lipase (73-393) U/L Urine Color (Yellw/Straw) Urine Clarity (Clear) Urine pH (5.0-8.5) Ur Specific Peebles (1.002-1.035) Urine Protein (Neg-Trace) mg/dL Urine Glucose (UA) (Negative) mg/dL Urine Ketones (Negative) mg/dL Urine Occult Blood (Negative) Urine Nitrate (Negative) Urine Bilirubin (Negative) Urine Urobilinogen (Less than 2) mg/dL Ur Leukocyte Esterase (Negative) Urine RBC (0-3) /hpf Urine WBC (0-5) /hpf Ur Squamous Epith Cells (0-5) /hpf Urine Bacteria (None) /hpf Urine Mucus (Occasional) /lpf Micro UA Comment Ur Microscopic Review Urine Culture Comments Discharge Plan Discharge Disposition Patient Disposition: ED Admit(ED Internal Use Only) Discharge Condition Condition: Stable Discharge Order Discharge Orders: ED Use Only Admit Order (Routine); Ordered 10/16/18 Ordered By: Jonah Woods Discharge Details Diagnosis: Abdominal pain Physicians Team ED Provider: Jonah Woods Attending Provider: Areli Ricardo Other Providers: Chiara Lynne Status ED Status: Left Department Discharge Information Discharge Date/Time: 10/16/18 16:00
[2018-10-16] MEDS ORDERED: Bisacodyl 10 MG Supp RECTAL PRN (14:00)
[2018-10-16] MEDS ORDERED: Acetaminophen 325 MG Tablet PO PRN (14:00)
[2018-10-16] MEDS: KCL 20 mEq/D5W/NaCl 0.45% Inj 1,000 ML IV.CONT SCH ×2 (15:27→22:35)
[2018-10-16] MEDS: HYDROmorphone PF Inj 1 MG/ML Ampul IV.PUSH PRN ×2 (16:50→20:43)
--- NOTE | 2018-10-16 17:28 | P.HPIM ---
History of Present Illness Primary Care Physician: Renzo Soni Chief Complaint: Abdominal pain History of Present Illness: The patient is a 53-year-old female with a past medical history of pancreatitis and thyroid cancer who is presenting to the hospital with severe abdominal pain, nausea and vomiting and diarrhea. She states that her symptoms started about 6 days ago. Abdominal pain developed in her upper abdomen and radiated to both of her shoulders. She called it a sharp and stabbing type of pain. She says once the pain starts it tends to stay. She also has been having nausea and vomiting. She has not been able to eat for days. She states her vomit appears to be composed of bile. She also came down with severe diarrhea and describes her stools as watery. She says her diarrhea has stopped about 2 hours ago. She denies any recent travel. She also denies any sick contacts. She went to the emergency department a few days ago and was discharged home. Her symptoms did not get worse. She states she has a history of pancreatitis and tends to get a flareup once or twice a year. She has been following with a miniature set constructor but has not figured out a cause for her pancreatitis. She denies alcohol use. She has felt feverish at times. Review of Systems Review of Systems: all other systems reviewed are negative [facility] Medical History Medical History Hypertension (Acute) Back pain (Acute) Myocardial infarct (Acute) Pancreatitis (Acute) TIA (transient ischemic attack) (Acute) Thyroid cancer (Acute) Surgical History Surgical History S/P appendectomy (Acute) S/P section (Acute) S/P cholecystectomy (Acute) S/P hysterectomy with oophorectomy (Acute) S/P thyroid surgery (Acute) Family History Family History Other Cardiovascular disease Social History Social History Substance History: No History of Abuse Second Hand Smoke Exposure: No Smoking Status: Never smoker Tobacco Type: Cigarettes How Often Do You Have a Drink Containing Alcohol: Never Recent Travel in [facility] within the Last 8 Weeks: No Recent Out of Country Travel within the Last 8 Weeks: No Immunization History Tetanus Immunization: <5 Years Medications and Allergies Allergies Allergy/AdvReac Type Severity Reaction Status Date / Time diphenhydramine AdvReac Severe Agitation Verified 10/16/18 08:21 Home Medications Medication Instructions Recorded Confirmed Type gabapentin 400 mg PO TID 08/03/18 10/16/18 History levothyroxine [Synthroid] 125 mcg PO DAILY 08/03/18 10/16/18 History lorazepam [Ativan] 1 mg PO TID PRN 08/03/18 10/16/18 History oxycodone 30 mg PO QID PRN 08/03/18 10/16/18 History Active Medications: Active Medications Acetaminophen (Tylenol) 650 mg PO Q4H PRN PRN Reason: temp, fever 1-2 Al Hydroxide/Mg Hydroxide (Milk Of Magnesia Liq) 30 ml PO Q12H PRN PRN Reason: Mild Constipation Bisacodyl (Dulcolax Supp) 10 mg RECTAL DAILY PRN PRN Reason: SEVERE CONSITIPATION Hydromorphone HCl (Dilaudid Pf Inj) 1 mg IV.PUSH Q4H PRN PRN Reason: PAIN 6-10;IF UNABLE TO TAKE PO Last Admin: 10/16/18 16:50 Dose: 1 mg Potassium Chloride/Dextrose/Sod Cl (D5w/1/2ns + Kcl 20 Meq Inj) 1,000 mls @ 150 mls/hr IV.CONT .Q6H40M CAROLE Last Admin: 10/16/18 15:27 Dose: 150 mls/hr Lactulose (Lactulose Liq) 30 ml PO DAILY PRN PRN Reason: SEVERE CONSITIPATION Metoclopramide HCl (Reglan Inj) 5 mg IV.PUSH Q8H PRN; Protocol PRN Reason: NAUSEA OR VOMITING Ondansetron HCl (Zofran Inj) 4 mg IV.PUSH Q6H PRN PRN Reason: NAUSEA OR VOMITING Last Admin: 10/16/18 15:27 Dose: 4 mg Senna/Docusate Sodium (Khadra-Colace) 1 tab PO BID [facility] Sennosides (Senokot) 17.2 mg PO Q12H PRN PRN Reason: Moderate Constipation Sodium Chloride (Ns Flush) 2 ml IV.FLUSH PRN PRN PRN Reason: FLUSH AFTER USING IV ACCESS Sodium Chloride (Ns Flush) 2 ml IV.FLUSH BID CAROLE Sodium Chloride (Ns Flush) 2 ml IV.FLUSH PRN PRN PRN Reason: FLUSH AFTER USING IV ACCESS Physical Exam Vital signs: Last Vital Signs Temp 98.4 F 10/16/18 15:59 Pulse 62 10/16/18 15:59 Resp 19 10/16/18 15:59 BP 130/77 10/16/18 15:59 Pulse Ox 92 L 10/16/18 15:59 Intake & Output 10/14/18 10/15/18 10/16/18 10/17/18 06:59 06:59 06:59 06:59 Intake Total 1000 / 1000 Balance 1000 / 1000 Weight 72.575 kg Narrative: GENERAL: Well-developed well-nourished, appears quite uncomfortable. SKIN: Focused skin assessment warm/dry. HEAD: Atraumatic. Normocephalic. EYES: Pupils equal and round. No scleral icterus. No injection or drainage. ENT: No nasal bleeding or discharge. Mucous membranes pink and moist. NECK: Trachea midline. No JVD. CARDIOVASCULAR: Regular rate and rhythm. No murmur appreciated. RESPIRATORY: No accessory muscle use. Clear to auscultation. Breath sounds equal bilaterally. GASTROINTESTINAL: Abdomen soft, moderately tender in the epigastric area. No rebound, no percussive tenderness. Abdomen soft. MUSCULOSKELETAL: No obvious deformities. No clubbing. No cyanosis. No edema. NEUROLOGICAL: Awake and alert. No obvious cranial nerve deficits. Motor grossly within normal limits. Normal speech. PSYCHIATRIC: Appropriate mood and affect. Results Labs CBC & Chem 7: 10/16/18 10:08 10/16/18 10:08 Caprini VTE Risk Assessment Caprini VTE Risk Assessment: Moderate/High Risk (score >= 2) Caprini Risk Assessment Model: Point Value = 1 Point Value = 2 Point Value = 3 Point Value = 5 Age 41-60 Minor surgery BMI > 25 kg/m2 Swollen legs Varicose veins or History of unexplained or recurrent spontaneous Oral contraceptives or hormone replacement Sepsis (< 1 month) Serious lung disease, including pneumonia (< 1 month) Abnormal pulmonary function Acute myocardial infarction Congestive heart failure (< 1 month) History of inflammatory bowel disease Medical patient at bed rest Age 61-74 Arthroscopic surgery Major open surgery (> 45 min) Laparoscopic surgery (> 45 min) Malignancy Confined to bed (> 72 hours) Immobilizing plaster cast Central venous access Age >= 75 History of VTE Family history of VTE Factor V Leiden Prothrombin [id number] Lupus anticoagulant Anticardiolipin antibodies Elevated serum homocysteine Heparin-induced thrombocytopenia Other congenital or acquired thrombophilia Stroke (< 1 month) Elective arthroplasty Hip, pelvis, or leg fracture Acute spinal cord injury (< 1 month) Prophylaxis Regimen: Total Risk Factor Score Risk Level Prophylaxis Regimen 0-1 Low Early ambulation 2 Moderate Order ONE of the following: *Sequential Compression Device (SCD) *Heparin 5000 units SQ BID 3-4 Higher Order ONE of the following medications: *Heparin 5000 units SQ TID *Enoxaparin/Lovenox 40 mg SQ daily (WT < 150 kg, CrCl > 30 mL/min) *Enoxaparin/Lovenox 30 mg SQ daily (WT < 150 kg, CrCl > 10-29 mL/min) *Enoxaparin/Lovenox 30 mg SQ BID (WT < 150 kg, CrCl > 30 mL/min) AND/OR *Sequential Compression Device (SCD) 5 or more Highest Order ONE of the following medications: *Heparin 5000 units SQ TID (Preferred with Epidurals) *Enoxaparin/Lovenox 40 mg SQ daily (WT < 150 kg, CrCl > 30 mL/min) *Enoxaparin/Lovenox 30 mg SQ daily (WT < 150 kg, CrCl > 10-29 mL/min) *Enoxaparin/Lovenox 30 mg SQ BID (WT < 150 kg, CrCl > 30 mL/min) AND *Sequential Compression Device (SCD) Assessment and Plan Plan Pancreatitis/gastroenteritis Lipase is elevated. The patient has a history of recurrent pancreatitis. She also has been experiencing nausea, vomiting and diarrhea. -Keep the patient n.p.o. with IV fluids. -IV Dilaudid as needed. The pt is on high dose chronic pain meds as an outpt. -Antiemetics as needed. -IV PPI daily. -Consult gastroenterology. UTI UA indicative of infection. -Continue IV ceftriaxone. -Follow urine culture. Seizure disorder On Keppra as an outpt. -continue Keppra in the IV form until able to take PO. Hypothyroidism S/p thyroidectomy. -hold levothyroxine until able to take PO. PPx: SCDs
[2018-10-16] MEDS: Pantoprazole Inj 40 MG Vial IV.PUSH SCH (17:54)
[2018-10-16] MEDS: Senna/Docusate Sodium 8.6/50 MG Tablet PO SCH (20:43)
[2018-10-16] MEDS: levETIRAcetam 1000mg/100mL Inj 100 ML IV.SIG SCH (21:14)
[2018-10-17] MEDS: HYDROmorphone PF Inj 1 MG/ML Ampul IV.PUSH PRN ×6 (00:44→21:00)
[2018-10-17] MEDS: levETIRAcetam 1000mg/100mL Inj 100 ML IV.SIG SCH ×2 (05:05→17:07)
[2018-10-17] MEDS: KCL 20 mEq/D5W/NaCl 0.45% Inj 1,000 ML IV.CONT SCH ×3 (05:05→19:45)
[2018-10-17 07:12] LABS: Baso % (Auto) 0.6 % (0.0-2.0); Eos # (Auto) 0.1 th/mm3 (0.0-0.4); Eos % (Auto) 2.5 % (0.0-4.0); Hematocrit 34.5 % (35.0-46.0); Hemoglobin 11.8 gm/dL (11.6-15.3); Lymph # (Auto) 1.6 th/mm3 (1.0-4.8); Lymph % (Auto) 34.3 % (9.0-44.0); Mean Corpuscular HGB Conc 34.3 % (32.0-36.0); Mean Corpuscular Hemoglobin 30.2 pg (27.0-34.0); Mean Corpuscular Volume 88.2 fL (80.0-100.0); Mean Platelet Volume 7.8 fL (7.0-11.0); Mono # (Auto) 0.6 th/mm3 (0.0-0.9); Mono % (Auto) 12.4 % (0.0-8.0); Neut # (Auto) 2.3 th/mm3 (1.8-7.7); Neut % (Auto) 50.2 % (16.0-70.0); Platelet Count 174 th/mm3 (150-450); Red Blood Count 3.92 mil/mm3 (4.00-5.30); Red Cell Distribution Width 14.1 % (11.6-17.2); White Blood Count 4.6 th/mm3 (4.0-11.0)
[2018-10-17 07:38] LABS: Alanine Aminotransferase 88 U/L (10-53); Albumin 2.8 g/dL (3.4-5.0); Anion Gap 8 meq/L (5-15); Aspartate Aminotransferase 57 U/L (15-37); Calcium 7.6 mg/dL (8.5-10.1); Carbon Dioxide 23.4 meq/L (21.0-32.0); Chloride 114 meq/L (98-107); Glomerular Filtration Rate 82 mL/min (>89); Glucose,Random 121 mg/dL (74-106); Lipase 559 U/L (73-393); Potassium 3.8 meq/L (3.5-5.1); Sodium 145 meq/L (136-145)
[2018-10-17 07:45] LABS: Alkaline Phosphatase 68 U/L (45-117); Blood Urea Nitrogen 7 mg/dL (7-18); Total Protein 5.9 g/dL (6.4-8.2)
[2018-10-17] MEDS: Senna/Docusate Sodium 8.6/50 MG Tablet PO SCH ×2 (09:26→20:43)
--- NOTE | 2018-10-17 12:43 | P.PNIM ---
Subjective Interval history: The patient is in bed she does not appear in acute distress at this time. However the patient is asking for more pain medications. No nausea or vomiting. Did not have a bowel movement. Still with epigastric abdominal pain radiating to the back. Lipase however is trending down. Will advance diet as patient tolerates. Physical Exam Vital signs: Last Vital Signs Temp 98.4 F 10/17/18 08:10 Pulse 51 L 10/17/18 08:10 Resp 18 10/17/18 08:10 BP 136/85 10/17/18 08:10 Pulse Ox 97 10/17/18 08:10 Intake & Output 10/15/18 10/16/18 10/17/18 10/18/18 06:59 06:59 06:59 06:59 Intake Total 3300 / 3300 1000 / 1000 Balance 3300 / 3300 1000 / 1000 Weight 72.1 kg Narrative: GENERAL: Well-developed well-nourished, appears in nad. CARDIOVASCULAR: Regular rate and rhythm. No murmur appreciated. RESPIRATORY: No accessory muscle use. Clear to auscultation. Breath sounds equal bilaterally. GASTROINTESTINAL: Abdomen soft, moderately tender in the epigastric area. No rebound, no percussive tenderness. Abdomen soft. MUSCULOSKELETAL: No obvious deformities. No clubbing. No cyanosis. No edema. NEUROLOGICAL: Awake and alert. No obvious cranial nerve deficits. Motor grossly within normal limits. Normal speech. PSYCHIATRIC: Appropriate mood and affect. Results Labs CBC & Chem 7: 10/17/18 06:36 10/17/18 06:36 Assessment and Plan Plan Pancreatitis/gastroenteritis Lipase is elevated. The patient has a history of recurrent pancreatitis. She also has been experiencing nausea, vomiting and diarrhea. -Keep the patient n.p.o. advance as tolerated , continue with IV fluids. -IV Dilaudid as needed. The pt is on high dose chronic pain meds as an outpt. -Antiemetics as needed. -IV PPI daily. -Consult gastroenterology. UTI UA indicative of infection. -Continue IV ceftriaxone. -Follow urine culture. Seizure disorder On Keppra as an outpt. -continue Keppra in the IV form until able to take PO. Hypothyroidism S/p thyroidectomy. -hold levothyroxine until able to take PO. PPx: SCDs DC when tolerates food pain controlled and lipase is significantly improved Progress Note: Quality VTE Deep Vein Thrombosis/Pulmonary Embolism Present on Admission: No
--- NOTE | 2018-10-17 14:24 | MB ---
cc: Chiara Lynne MD DATE: 10/17/2018 TYPE OF CONSULTATION: GI Consult. REASON FOR CONSULTATION: Pancreatitis. HISTORY OF PRESENT ILLNESS: This is a 53-year-old female patient with a history of multiple surgical procedures in the past, history of thyroid cancer, and history of recurrent pancreatitis requiring several admissions for management of the pancreatitis over the last 3 years, who presented with a history of 1 week duration of abdominal pain, mostly in the epigastric area, radiating to her shoulders. The pain was described as a stabbing in nature. Pain also associated with nausea and vomiting and unable to eat anything. By the time she was in the hospital, she felt severely dehydrated and had multiple, several episodes of watery diarrhea prior to presentation to the hospital. The patient had a complete workup for her recurrent pancreatitis in the past, the etiology was not identified. The patient denies alcohol use. She had her cholecystectomy done several years ago. Denies use of herbs or any other drugs. No family history of chronic pancreatitis or pancreatic CA. No history of trauma to the abdomen. REVIEW OF SYSTEMS: All 14 points reviewed and were negative other than the ones mentioned in the history of present illness. PAST MEDICAL HISTORY: The patient is now known to have chronic back pain, history of acute MO, pancreatitis requiring multiple admissions, TIAs, thyroid cancer and hypertension. PAST SURGICAL HISTORY: Positive for appendectomy, cholecystectomy, sections, hysterectomy with oophorectomy and thyroid cancer. FAMILY HISTORY: Negative for chronic pancreatitis or pancreatic CA or any other GI malignancies. PSYCHOSOCIAL HISTORY: No history of IV drug abuse or smoking. MEDICATIONS: 1. Gabapentin. 2. Levothyroxine. 3. Lorazepam. 4. Oxycodone. ALLERGIES: DIPHENHYDRAMINE. PHYSICAL EXAMINATION: GENERAL: The patient found to be comfortable with minimal pain at the current time. Hemodynamically stable and her blood pressure is 130/70, otherwise normal vital signs. Well-developed, well-hydrated at the current time. HEAD AND NECK: Examinations were within normal limits. HEENT: Pupils equal, round, reactive to light. NECK: Supple neck. No lymphadenopathy. No thyromegaly. CHEST: Clear to auscultation bilaterally. No crackles or wheezes. CARDIOVASCULAR: Regular rate and rhythm. No murmurs. ABDOMEN: Soft with tenderness in the epigastric area, but no rebound tenderness. No rigidity. EXTREMITIES: Normal pulses. No edema. NEUROLOGIC: Cranial nerves 2-12 grossly intact. No focal motor or sensory deficits. SKIN: Intact. IMPRESSION: Ms. Olivas is a 53-year-old female patient who presented with the following problems: 1. Nausea, vomiting, abdominal pain of 6 days' duration with increase in pancreatic enzymes suggestive of acute pancreatitis. 2. History of recurrent attacks of pancreatitis in the past requiring multiple admissions over the last 3 years. 3. Status post cholecystectomy. 4. No history of alcohol use or abuse and also denies any other exposure to chemicals, drugs or trauma, and no family history of pancreatic disorders. 5. Multiple comorbid conditions. RECOMMENDATIONS: Agree with complete bowel rest for the time being with aggressive hydration, pain control and will need to check MRCP to check for possible secondary stone formation in the biliary system. Meanwhile, continue supportive care. We will follow up with you. Thank you for the consult. MD BIGG Mann/kiana , 12:58 PM , 01:08 PM LISBETH
--- NOTE | 2018-10-17 14:59 | MR ---
EXAM DATE: 10/17/2018 2:35 PM EST AGE/SEX: 53 years / Female INDICATIONS: Obstruction. CLINICAL DATA: This is the patient's initial encounter. Patient reports that signs and symptoms have been present for 1 day and indicates a pain score of 0/10. MEDICAL/SURGICAL HISTORY: Pancreatitis. Hypertension. Carcinoma, thyroid. Cholecystectomy. A ppendectomy. Hysterectomy. COMPARISON: [facility], MRCP W/O CONTRAST, 05/10/2016. . TECHNIQUE: Multiplanar, multisequence images of the abdomen were obtained without contrast including dedicated cholangiographic images. FINDINGS: Liver: The liver is homogeneous and normal in signal intensity with no focal defects. Intrahepatic Bile Ducts: There is no intrahepatic biliary ductal dilatation. Common Bile Duct: The common bile duct is distended but stable in diameter measuring approximately 1 2 mm. Are no intraluminal filling defects. Gallbladder: Status post cholecystectomy Pancreas: The pancreas appears normal in signal with no focal parenchymal abnormalities. The pancrea tic duct is normal in caliber with no filling defects, or obstructing lesions identified. CONCLUSION: 1. Stable dilated common bile duct status post cholecystectomy. 2. No evidence of choledocholithiasis or intrahepatic duct dilatation.. 3. Stable pancreatic duct. 4. Status post cholecystectomy. Electronically signed by: Liban Mccracken MD Board Certified Radiologist 10/17/2018 2:58 PM EST
[2018-10-17] MEDS: Pantoprazole Inj 40 MG Vial IV.PUSH SCH (17:07)
[2018-10-18] MEDS: HYDROmorphone PF Inj 1 MG/ML Ampul IV.PUSH PRN ×4 (01:20→13:32)
[2018-10-18] MEDS: KCL 20 mEq/D5W/NaCl 0.45% Inj 1,000 ML IV.CONT SCH ×6 (02:42→22:09)
[2018-10-18] MEDS: levETIRAcetam 1000mg/100mL Inj 100 ML IV.SIG SCH (05:16)
[2018-10-18 06:42] LABS: Anion Gap 7 meq/L (5-15); Blood Urea Nitrogen 2 mg/dL (7-18); Carbon Dioxide 25.9 meq/L (21.0-32.0); Chloride 112 meq/L (98-107); Glomerular Filtration Rate Greater Than 89 mL/min (>89); Glucose,Random 96 mg/dL (74-106); Lipase 696 U/L (73-393); Potassium 3.5 meq/L (3.5-5.1); Sodium 145 meq/L (136-145)
[2018-10-18] MEDS: Senna/Docusate Sodium 8.6/50 MG Tablet PO SCH ×2 (09:23→20:16)
--- NOTE | 2018-10-18 11:08 | P.PNIM ---
Subjective Interval history: She is in bed. Appears in not acute distress at this time however patient is still complaining of pain and says Dilaudid is not working. There is no nausea or vomiting. Would like her usual pain medication for chronic pain is she has chronic back pain. Will advance diet. No fever or chills. Physical Exam Vital signs: Last Vital Signs Temp 97.6 F 10/18/18 08:00 Pulse 63 10/18/18 08:00 Resp 17 10/18/18 08:00 BP 130/66 10/18/18 08:00 Pulse Ox 100 10/18/18 08:00 Intake & Output 10/16/18 10/17/18 10/18/18 10/19/18 06:59 06:59 06:59 06:59 Intake Total 3300 / 3300 3300 / 3300 1000 / 1000 Balance 3300 / 3300 3300 / 3300 1000 / 1000 Weight 72.1 kg Narrative: GENERAL: Well-developed well-nourished, appears in nad. CARDIOVASCULAR: Regular rate and rhythm. No murmur appreciated. RESPIRATORY: No accessory muscle use. Clear to auscultation. Breath sounds equal bilaterally. GASTROINTESTINAL: Abdomen soft, moderately tender in the epigastric area. No rebound, no percussive tenderness. Abdomen soft. MUSCULOSKELETAL: No obvious deformities. No clubbing. No cyanosis. No edema. NEUROLOGICAL: Awake and alert. No obvious cranial nerve deficits. Motor grossly within normal limits. Normal speech. PSYCHIATRIC: Appropriate mood and affect. Results Labs CBC & Chem 7: 10/17/18 06:36 10/18/18 05:51 Labs: Microbiology 10/16/18 10:08 Clean Catch Urine Urine Culture - Final Gardnerella vaginalis Imaging Imaging: Impressions Cholangiopancreatography MRI 10/17/18 00:00 CONCLUSION: 1. Stable dilated common bile duct status post cholecystectomy. 2. No evidence of choledocholithiasis or intrahepatic duct dilatation.. 3. Stable pancreatic duct. 4. Status post cholecystectomy. Assessment and Plan Plan Pancreatitis/gastroenteritis Lipase is elevated. The patient has a history of recurrent pancreatitis. She also has been experiencing nausea, vomiting and diarrhea. Nausea, vomiting and diarrhea resolved -Keep the patient n.p.o. advance as tolerated , continue with IV fluids. -Discontinue IV Dilaudid as needed. The pt is on high dose chronic pain meds as an outpt. Restart home pain medications. Reviewed EFORCSE. -Antiemetics as needed. -IV PPI daily. Changed to p.o. -Consult gastroenterology. UTI UA indicative of infection. -Continue IV ceftriaxone. -Follow urine culture. Seizure disorder On Keppra as an outpt. -continue Keppra in the IV form until able to take PO. Change to PO as tolerates Hypothyroidism S/p thyroidectomy. -hold levothyroxine until able to take PO. PPx: SCDs DC when tolerates food pain controlled and lipase is significantly improved Possible discharge tomorrow if tolerates food Progress Note: Quality VTE Deep Vein Thrombosis/Pulmonary Embolism Present on Admission: No
--- NOTE | 2018-10-18 15:32 | P.DS ---
DS: Providers Date of admission: 10/16/18 13:50 Primary care physician: Renzo Soni Consults: 10/16/18 17:26 Consult to Gastroenterology Routine Consulting Provider: Chiara Lynne Reason for Consultation: Recurrent pancreatitis Notified:: Service Spoke with:: KAI Date Notified:: 10/16/18 Time Notified:: 17:33 Ordering Provider: ROBERT Brief History from admission: The patient is a 53-year-old female with a past medical history of pancreatitis and thyroid cancer who is presenting to the hospital with severe abdominal pain, nausea and vomiting and diarrhea. She states that her symptoms started about 6 days ago. Abdominal pain developed in her upper abdomen and radiated to both of her shoulders. She called it a sharp and stabbing type of pain. She says once the pain starts it tends to stay. She also has been having nausea and vomiting. She has not been able to eat for days. She states her vomit appears to be composed of bile. She also came down with severe diarrhea and describes her stools as watery. She says her diarrhea has stopped about 2 hours ago. She denies any recent travel. She also denies any sick contacts. She went to the emergency department a few days ago and was discharged home. Her symptoms did not get worse. She states she has a history of pancreatitis and tends to get a flareup once or twice a year. She has been following with a general internist but has not figured out a cause for her pancreatitis. She denies alcohol use. She has felt feverish at times. DS: Summary Pancreatitis/gastroenteritis Lipase is elevated. The patient has a history of recurrent pancreatitis. She also has been experiencing nausea, vomiting and diarrhea. Nausea, vomiting and diarrhea resolved -Keep the patient n.p.o. advance as tolerated , continue with IV fluids. -Discontinue IV Dilaudid as needed. The pt is on high dose chronic pain meds as an outpt. Restart home pain medications. Reviewed EFORCSE. -Antiemetics as needed. -IV PPI daily. Changed to p.o. -Consult gastroenterology. POss UTI UA indicative of infection. -DC IV ceftriaxone as cultures with gardenella vaginalis -Follow urine culture. Seizure disorder On Keppra as an outpt. -continue Keppra in the IV form until able to take PO. Change to PO as tolerates Hypothyroidism S/p thyroidectomy. -hold levothyroxine until able to take PO. PPx: SCDs Note; on 10/22/18 patient left AMA. Patient did leave with the IV for more than 1 hr and then return to the floor. Security did not find the patient meanwhile. Also script for nausea given for the patient. She did not vomit today per nurse. Per patient she was still vomiting and with nausea. Labs in the morning are fairly stable, electrolytes are normal, no signs of dehydration. Time Spent with Patient Total time spent providing and/or coordinating discharge services: > 30 min Quality: VTE Deep Vein Thrombosis/Pulmonary Embolism Present on Admission: No Exam Narrative Exam Narrative: GENERAL: Well-developed well-nourished, appears in nad. CARDIOVASCULAR: Regular rate and rhythm. No murmur appreciated. RESPIRATORY: No accessory muscle use. Clear to auscultation. Breath sounds equal bilaterally. GASTROINTESTINAL: Abdomen soft, moderately tender in the epigastric area. No rebound, no percussive tenderness. Abdomen soft. MUSCULOSKELETAL: No obvious deformities. No clubbing. No cyanosis. No edema. NEUROLOGICAL: Awake and alert. No obvious cranial nerve deficits. Motor grossly within normal limits. Normal speech. PSYCHIATRIC: Appropriate mood and affect. Results Labs on day of discharge: Labs from last 24 hours 10/18/18 05:51 Sodium 145 Potassium 3.5 Chloride 112 H Carbon Dioxide 25.9 Anion Gap 7 BUN 2 L Creatinine 0.68 Estimated GFR Greater than 89 Random Glucose 96 Calcium 8.0 L Lipase 696 H Impressions ITS Impressions Cholangiopancreatography MRI 10/17/18 00:00 CONCLUSION: 1. Stable dilated common bile duct status post cholecystectomy. 2. No evidence of choledocholithiasis or intrahepatic duct dilatation.. 3. Stable pancreatic duct. 4. Status post cholecystectomy. Discharge Plan Discharge Disposition Patient Disposition: Against Medical Advice Discharge Order Discharge Orders: AMA Discharge (Routine); Ordered 10/22/18 Ordered By: Areli Riacrdo Discharge Order (Routine); Ordered 10/22/18 Ordered By: Areli Ricardo Discharge Details Anticipated Discharge Date: 10/22/18 Discharge Comment: Patient left AMA , this is AMA discharge order. Patient did leave with the iV for more than 1 hr and then return to the floor. Security did not find the patient meanwhile. Also script for nausea given Physicians Team Attending Provider: Areli Ricardo Other Providers: Chiara Lynne Rxs /Orders / Referrals /Forms Prescriptions: New promethazine 25 mg tablet 12.5 mg PO Q4-6H PRN (Reason: nausea and vomiting) Qty: 30 RF: 0 Continue levothyroxine [Synthroid] 25 mcg Tablet 125 mcg PO DAILY RF: 0 gabapentin 100 mg Capsule 400 mg PO TID RF: 0 oxycodone 10 mg Tablet 30 mg PO QID PRN (Reason: Pain) RF: 0 lorazepam [Ativan] 1 mg Tablet 1 mg PO TID PRN (Reason: Anxiety) RF: 0 morphine 100 mg Tablet Extended Release 100 mg PO Q8H PRN (Reason: CHRONIC PAIN) RF: 0 levetiracetam [Keppra] 500 mg Tablet 1,000 mg PO BID Qty: 60 RF: 0 sulfamethoxazole-trimethoprim [Bactrim DS] 800-160 mg tablet 1 tab PO Q12H Qty: 14 RF: 0 Referrals: Renzo Soni [Other] - See Instructions ( Please call the physician's office to book the appointment to be seen within [2-3 days ].) Renzo Soni MD [Other] - See Instructions Discharge Instructions Patient Printed Instructions: Pancreatitis (GEN), Acute Abdominal Pain (ED) Additional Instructions: Follow up with your Primary care Doctor in 1 week as instructed, Return to the Emergency Department if your symptoms return or worsen. Post Discharge Care Plan Care Plan Goals: Your Health Problems: Goals to Promote Your Health: * To prevent worsening of your condition * To maintain your health at the optimal level Directions to Meet Your Goals: * Take your medications as prescribed * Follow your dietary instruction * Follow activity as directed * Keep your appointments as scheduled * Take your immunizations and boosters as scheduled * If your symptoms worsen call your PCP * If no PCP go to Urgent Care or Emergency Room Smoking is dangerous to your health. Avoid second hand smoke. You may reach the 24-hour crisis hotline for domestic abuse at . Discharge Interventions Interventions: Discharge Planning - Case Management Last Done: 10/21/18 15:50 Status ED Status: Left Department
--- NOTE | 2018-10-18 16:12 | P.PNGI ---
Subjective Interval history: Patient sitting up in bed Reports continued upper abdominal pain Denies nausea or vomiting States tolerating clear liquid diet Physical Exam Vital signs: Vital Signs 10/17/18 20:00 10/17/18 23:50 10/18/18 08:00 Temperature 98.1 F 98.2 F 97.6 F Pulse Rate 64 67 63 Respiratory Rate 17 17 17 Blood Pressure 121/81 113/63 130/66 Pulse Oximetry 98 97 100 10/18/18 12:00 Temperature 98.5 F Pulse Rate 69 Respiratory Rate 17 Blood Pressure 119/80 Pulse Oximetry 100 Intake & Output 10/17/18 10/18/18 10/18/18 18:59 06:59 18:59 Intake Total 1100 / 1100 2200 / 2200 1999 Balance 1100 / 1100 2200 / 2200 1999 Intake: IV 1100 / 1100 2200 / 2200 1999 / 1999 D5W/1/2NS + KCL 20 mEq Inj 1, 1000 / 1000 1999 / 1999 1999 / 1999 000 ML @ 125 mls/hr IV.CONT . Q8H CAROLE Rx#:[id number] Rocephin Inj 1,000 MG In NS Inj 100 / 100 100 ML @ 200 mls/hr IV.SIG Q24H CAROLE Rx#:[id number] Keppra 1000 mg/100 mL Premix 100 / 100 100 / 100 100 ML @ 400 mls/hr IV.SIG Q12H CAROLE Rx#:[id number] Other: # Voids 2 Date of Last Bowel Movement 10/15/18 10/16/18 - Constitutional no acute distress - Routine HEENT Exam Head: Present: normocephalic - Routine Respiratory Exam Present: CTA bilaterally - Routine Cardiovascular Exam Present: RRR - Routine Abdominal Exam Present: soft, normoactive bowel sounds, tenderness. Absent: distended, guarding, firm - Routine Extremities Exam Absent: edema - Routine Skin Exam Present: dry, warm - Routine Neurological Exam Present: alert Results - Labs CBC & Chem 7: 10/17/18 06:36 10/18/18 05:51 Laboratory Results - last 24 hr 10/18/18 05:51 Sodium 145 Potassium 3.5 Chloride 112 H Carbon Dioxide 25.9 Anion Gap 7 BUN 2 L Creatinine 0.68 Estimated GFR Greater than 89 Random Glucose 96 Calcium 8.0 L Lipase 696 H Microbiology 12/29/18 10:08 Clean Catch Urine Urine Culture - Final Gardnerella vaginalis Assessment and Plan (1) Pancreatitis Status: Acute Code(s): K85.90 - Acute pancreatitis without necrosis or infection, unspecified - Plan IMPRESSION: Ms. Olivas is a 53-year-old female patient who presented with the following problems: 1. Nausea, vomiting, abdominal pain of 6 days' duration with increase in pancreatic enzymes suggestive of acute pancreatitis. 2. History of recurrent attacks of pancreatitis in the past requiring multiple admissions over the last 3 years. 3. Status post cholecystectomy. 4. No history of alcohol use or abuse and also denies any other exposure to chemicals, drugs or trauma, and no family history of pancreatic disorders. 5. Multiple comorbid conditions. RECOMMENDATIONS: Agree with complete bowel rest for the time being with aggressive hydration, pain control and will need to check MRCP to check for possible secondary stone formation in the biliary system. Meanwhile, continue supportive care. We will follow up with you. 10/18/2018 Pancreatitis-acute Patient denies nausea or vomiting Endorses continued abdominal pain 10/17/2018 WBC 4.6 hemoglobin 11.8 hematocrit 34.5 10/18/2018 lipase 696 10/17/2018 MRCP-- 1. Stable dilated common bile duct status post cholecystectomy. 2. No evidence of choledocholithiasis or intrahepatic duct dilatation.. 3. Stable pancreatic duct. 4. Status post cholecystectomy Plan -Bowel rest -Antiemetics and analgesics as per attending -IV hydration -Reglan -Protonix 40 mg p.o. daily -Monitor labs-Lipase -Supportive care -Further recommendations to follow This patient has been seen by myself and Dr. Lynne and this note is written on his behalf - Attending Attestation Dr. Lynne
[2018-10-18] MEDS: Gabapentin 100 MG Capsule PO SCH (17:17)
[2018-10-18] MEDS: Morphine Sulfate 100 MG SR Tablet PO PRN (17:18)
[2018-10-18] MEDS: levETIRAcetam 500 MG Tablet PO SCH (20:16)
[2018-10-18] MEDS: LORazepam 0.5 MG Tablet PO PRN (20:21)
[2018-10-19] MEDS: Morphine Sulfate 100 MG SR Tablet PO PRN ×3 (01:29→17:47)
[2018-10-19] MEDS: LORazepam 0.5 MG Tablet PO PRN ×3 (04:09→20:44)
[2018-10-19] MEDS: KCL 20 mEq/D5W/NaCl 0.45% Inj 1,000 ML IV.CONT SCH ×3 (04:14→20:45)
[2018-10-19] MEDS: levETIRAcetam 500 MG Tablet PO SCH ×3 (07:46→20:44)
[2018-10-19] MEDS: Gabapentin 100 MG Capsule PO SCH ×4 (07:47→17:47)
[2018-10-19] MEDS: Senna/Docusate Sodium 8.6/50 MG Tablet PO SCH ×2 (09:28→20:45)
--- NOTE | 2018-10-19 09:57 | P.PNGI ---
Subjective Interval history: Assessment Recurrent pancreatitis of unclear etiology-multiple admissions in the past for same Denies history of EtOH, denies any exposure to chemicals, drugs or trauma, no family history of pancreatic disorders. Patient has had previous autoimmune workup which was negative. Lipid panel within normal limits. MRCP (10/17/18) stable dilated common bile duct status post cholecystectomy. No evidence of choledocholithiasis or intrahepatic duct dilatation. Stable pancreatic duct. Status post cholecystectomy. Hepatitis C, treatment reny-elevated LFTs possibly secondary to above (10/19/17) Pt diet advanced to regular, has been able to tolerate some food but taking it slow. Still taking some antiemetics as needed for nausea. Pain is still present but slightly improved. Pt has been previously advised to follow up with tertiary center and pain management, states that after her she has been uninsured but that since the new year starts today she has insurance. Lipase now WNL. Plan: Hepatitis C work up and treatment outpatient Diet as tolerated Antiemetics PRN Analgesics IV fluids until tolerating diet Continue Protonix Our service will sign off, have pt follow up with GI outpatient This patient has been seen and examined by myself and Dr. Lynne and this note is written on his behalf <Tracey Vazquez - Last Filed: 10/19/18 09:50> Physical Exam Vital signs: Vital Signs 10/18/18 12:00 10/18/18 16:00 10/18/18 19:48 Temperature 98.5 F 98.8 F 99.6 F Pulse Rate 69 67 74 Respiratory Rate 17 17 18 Blood Pressure 119/80 126/81 113/68 Pulse Oximetry 100 96 97 10/18/18 23:02 Temperature 98.4 F Pulse Rate 65 Respiratory Rate 18 Blood Pressure 104/58 L Pulse Oximetry 98 Intake & Output 10/18/18 10/19/18 10/19/18 18:59 06:59 18:59 Intake Total 1999 2480 / 2480 Balance 1999 2480 / 2480 Weight 72.1 kg Intake: IV 1999 D5W/1/2NS + KCL 20 mEq Inj 1, 1999 000 ML @ 125 mls/hr IV.CONT . Q8H CAROLE Rx#:[id number] Oral 480 / 480 Other: # Voids 4 2 Date of Last Bowel Movement 10/16/18 10/17/18 # Bowel Movements 0 <Tracey Vazquez - Last Filed: 10/19/18 09:50> Vital signs: Vital Signs 10/18/18 19:48 10/18/18 23:02 10/19/18 08:00 Temperature 99.6 F 98.4 F 98.8 F Pulse Rate 74 65 70 Respiratory Rate 18 18 12 Blood Pressure 113/68 104/58 L 115/73 Pulse Oximetry 97 98 96 10/19/18 12:00 Temperature 98.2 F Pulse Rate 70 Respiratory Rate 14 Blood Pressure 124/75 Pulse Oximetry 97 Intake & Output 10/18/18 10/19/18 10/19/18 18:59 06:59 18:59 Intake Total 1999 2480 / 2480 1000 / 1000 Balance 1999 2480 / 2480 1000 / 1000 Weight 72.1 kg Intake: IV 1999 1000 / 1000 D5W/1/2NS + KCL 20 mEq Inj 1, 1999 1000 / 1000 000 ML @ 125 mls/hr IV.CONT . Q8H CAROLE Rx#:[id number] Oral 480 / 480 Other: # Voids 4 2 Date of Last Bowel Movement 10/16/18 10/17/18 # Bowel Movements 0 <Chiara Lynne - Last Filed: 10/19/18 17:23> Results - Labs CBC & Chem 7: 10/17/18 06:36 10/18/18 05:51 Laboratory Results - last 24 hr 10/19/18 07:55 Lipase 231 Microbiology 10/16/18 10:08 Clean Catch Urine Urine Culture - Final Gardnerella vaginalis <Tracey Vazquez - Last Filed: 10/19/18 09:50> - Labs CBC & Chem 7: 10/17/18 06:36 10/18/18 05:51 Laboratory Results - last 24 hr 10/19/18 07:55 Lipase 231 <Chiara Lynne - Last Filed: 10/19/18 17:23> Assessment and Plan (1) Pancreatitis Status: Acute Code(s): K85.90 - Acute pancreatitis without necrosis or infection, unspecified <Tracey Vazquez - Last Filed: 10/19/18 09:50> (1) Pancreatitis Status: Acute Code(s): K85.90 - Acute pancreatitis without necrosis or infection, unspecified - Attending Attestation Seen with Tracey, will continue supportive care. Pain control, Hydration, start liquid diet in AM. Please notify us if needed again. <Chiara Lynne - Last Filed: 10/19/18 17:23>
--- NOTE | 2018-10-19 16:39 | P.PNIM ---
Subjective Interval history: In nad . Says she is not eatying much . With nausea in the morning Noted ambulating in the hallways per nurse. However patient says she feels weak. Will ask PT for eval No fever or chills. Lipase back to normal Physical Exam Vital signs: Last Vital Signs Temp 98.2 F 10/19/18 12:00 Pulse 70 10/19/18 12:00 Resp 14 10/19/18 12:00 BP 124/75 10/19/18 12:00 Pulse Ox 97 10/19/18 12:00 Intake & Output 10/17/18 10/18/18 10/19/18 10/20/18 06:59 06:59 06:59 06:59 Intake Total 3300 / 3300 3300 / 3300 4480 / 4480 1000 / 1000 Balance 3300 / 3300 3300 / 3300 4480 / 4480 1000 / 1000 Weight 72.1 kg 72.1 kg Narrative: GENERAL: Well-developed well-nourished, appears in nad. CARDIOVASCULAR: Regular rate and rhythm. No murmur appreciated. RESPIRATORY: No accessory muscle use. Clear to auscultation. Breath sounds equal bilaterally. GASTROINTESTINAL: Abdomen soft, moderately tender in the epigastric area. No rebound, no percussive tenderness. Abdomen soft. MUSCULOSKELETAL: No obvious deformities. No clubbing. No cyanosis. No edema. NEUROLOGICAL: Awake and alert. No obvious cranial nerve deficits. Motor grossly within normal limits. Normal speech. PSYCHIATRIC: Appropriate mood and affect. Results Labs CBC & Chem 7: 10/17/18 06:36 10/18/18 05:51 Assessment and Plan (1) Pancreatitis: Code(s): K85.90 - Acute pancreatitis without necrosis or infection, unspecified Status: Acute Plan Pancreatitis/gastroenteritis Lipase is elevated. The patient has a history of recurrent pancreatitis. She also has been experiencing nausea, vomiting and diarrhea. Nausea, vomiting and diarrhea resolved -Keep the patient n.p.o. advance as tolerated , continue with IV fluids. -Discontinue IV Dilaudid as needed. The pt is on high dose chronic pain meds as an outpt. Restart home pain medications. Reviewed EFORCSE. -Antiemetics as needed. -IV PPI daily. Changed to p.o. -Consult gastroenterology. UTI UA indicative of infection. -Continue IV ceftriaxone. -Follow urine culture. Seizure disorder On Keppra as an outpt. -continue Keppra in the IV form until able to take PO. Change to PO as tolerates Hypothyroidism S/p thyroidectomy. -hold levothyroxine until able to take PO. PPx: SCDs DC tomorrow if eating and no more nausea lipase back to normal Possible discharge tomorrow if tolerates food Progress Note: Quality VTE Deep Vein Thrombosis/Pulmonary Embolism Present on Admission: No _ (1) Pancreatitis Qualifiers: Chronicity: Pancreatitis type: Acute pancreatitis complication:
[2018-10-20] MEDS: Morphine Sulfate 100 MG SR Tablet PO PRN ×3 (03:52→20:43)
[2018-10-20] MEDS: LORazepam 0.5 MG Tablet PO PRN ×3 (05:12→22:17)
[2018-10-20] MEDS: KCL 20 mEq/D5W/NaCl 0.45% Inj 1,000 ML IV.CONT SCH ×3 (05:12→20:43)
[2018-10-20] MEDS: Gabapentin 100 MG Capsule PO SCH ×3 (09:54→17:20)
[2018-10-20] MEDS: Senna/Docusate Sodium 8.6/50 MG Tablet PO SCH ×2 (09:54→20:43)
[2018-10-20] MEDS: levETIRAcetam 500 MG Tablet PO SCH ×2 (09:54→20:43)
--- NOTE | 2018-10-20 16:39 | P.PNIM ---
Subjective Interval history: The patient was able to eat today however she did vomit multiple times. No fever or chills. Abdominal pain is fairly controlled. Lipase is back to normal however the patient still with nausea and vomiting. No fever or chills. Had a bowel movement. Physical Exam Vital signs: Last Vital Signs Temp 98.0 F 10/20/18 10:00 Pulse 92 H 10/20/18 10:00 Resp 18 10/20/18 10:00 BP 122/91 H 10/20/18 10:00 Pulse Ox 95 10/20/18 10:00 Intake & Output 10/18/18 10/19/18 10/20/18 10/21/18 06:59 06:59 06:59 06:59 Intake Total 3300 / 3300 4480 / 4480 3850 / 3850 1000 / 1000 Balance 3300 / 3300 4480 / 4480 3850 / 3850 1000 / 1000 Weight 72.1 kg 72.1 kg Narrative: GENERAL: Well-developed well-nourished, appears in nad. CARDIOVASCULAR: Regular rate and rhythm. No murmur appreciated. RESPIRATORY: No accessory muscle use. Clear to auscultation. Breath sounds equal bilaterally. GASTROINTESTINAL: Abdomen soft, moderately tender in the epigastric area. No rebound, no percussive tenderness. Abdomen soft. MUSCULOSKELETAL: No obvious deformities. No clubbing. No cyanosis. No edema. NEUROLOGICAL: Awake and alert. No obvious cranial nerve deficits. Motor grossly within normal limits. Normal speech. PSYCHIATRIC: Appropriate mood and affect. Results Labs CBC & Chem 7: 10/17/18 06:36 10/18/18 05:51 Assessment and Plan (1) Pancreatitis: Code(s): K85.90 - Acute pancreatitis without necrosis or infection, unspecified Status: Acute Plan Pancreatitis/gastroenteritis Nausea/vomiting Lipase is elevated. The patient has a history of recurrent pancreatitis. She also has been experiencing nausea, vomiting and diarrhea. -Keep the patient n.p.o. advance as tolerated , continue with IV fluids. -Discontinue IV Dilaudid as needed. The pt is on high dose chronic pain meds as an outpt. Restart home pain medications. Reviewed EFORCSE. -Antiemetics as needed. -IV PPI daily. Changed to p.o. -Consult gastroenterology. UTI UA indicative of infection. -Continue IV ceftriaxone. -Follow urine culture. Seizure disorder On Keppra as an outpt. -continue Keppra in the IV form until able to take PO. Change to PO as tolerates Hypothyroidism S/p thyroidectomy. -hold levothyroxine until able to take PO. PPx: SCDs DC tomorrow if eating and no more nausea lipase back to normal Possible discharge tomorrow if tolerates food Progress Note: Quality VTE Deep Vein Thrombosis/Pulmonary Embolism Present on Admission: No _ (1) Pancreatitis Qualifiers: Chronicity: Pancreatitis type: Acute pancreatitis complication:
[2018-10-20] MEDS: Benzocaine/Menthol 15 MG/3.6 MG SF Lozenge BUCCAL PRN ×3 (17:20→23:20)
[2018-10-21] MEDS: Morphine Sulfate 100 MG SR Tablet PO PRN ×3 (04:42→23:11)
[2018-10-21] MEDS: KCL 20 mEq/D5W/NaCl 0.45% Inj 1,000 ML IV.CONT SCH ×3 (04:42→21:03)
[2018-10-21] MEDS: Senna/Docusate Sodium 8.6/50 MG Tablet PO SCH ×2 (09:52→21:03)
[2018-10-21] MEDS: levETIRAcetam 500 MG Tablet PO SCH ×2 (09:52→21:03)
[2018-10-21] MEDS: LORazepam 0.5 MG Tablet PO PRN ×2 (09:52→18:12)
[2018-10-21] MEDS: Gabapentin 100 MG Capsule PO SCH ×3 (09:52→18:12)
[2018-10-21] MEDS ORDERED: Influenza (Quadrivalent) Vaccine 0.5 ML Syringe IM ONE (17:00)
--- NOTE | 2018-10-21 22:49 | P.PNIM ---
Subjective Interval history: With nausea and vomiting Vomited on the floor no fever or chills Abd pain is controlled. Physical Exam Vital signs: Last Vital Signs Temp 98.7 F 10/21/18 21:15 Pulse 73 10/21/18 21:15 Resp 17 10/21/18 21:15 BP 105/59 L 10/21/18 21:15 Pulse Ox 93 L 10/21/18 21:15 Intake & Output 10/19/18 10/20/18 10/21/18 10/22/18 06:59 06:59 06:59 06:59 Intake Total 4480 / 4480 3850 / 3850 3190 / 3190 2862 / 2862 Balance 4480 / 4480 3850 / 3850 3190 / 3190 2862 / 2862 Weight 72.1 kg 72.1 kg 81.1 kg Narrative: GENERAL: Well-developed well-nourished, appears in nad. CARDIOVASCULAR: Regular rate and rhythm. No murmur appreciated. RESPIRATORY: No accessory muscle use. Clear to auscultation. Breath sounds equal bilaterally. GASTROINTESTINAL: Abdomen soft, moderately tender in the epigastric area. No rebound, no percussive tenderness. Abdomen soft. MUSCULOSKELETAL: No obvious deformities. No clubbing. No cyanosis. No edema. NEUROLOGICAL: Awake and alert. No obvious cranial nerve deficits. Motor grossly within normal limits. Normal speech. PSYCHIATRIC: Appropriate mood and affect. Results Labs CBC & Chem 7: 10/17/18 06:36 10/18/18 05:51 Assessment and Plan (1) Pancreatitis: Code(s): K85.90 - Acute pancreatitis without necrosis or infection, unspecified Status: Acute Plan Pancreatitis/gastroenteritis Nausea/vomiting Lipase is elevated. The patient has a history of recurrent pancreatitis. She also has been experiencing nausea, vomiting and diarrhea. -Keep the patient n.p.o. advance as tolerated , continue with IV fluids. -Discontinue IV Dilaudid as needed. The pt is on high dose chronic pain meds as an outpt. Restart home pain medications. Reviewed EFORCSE. -Antiemetics as needed. -IV PPI daily. Changed to p.o. -Consult gastroenterology. UTI UA indicative of infection. -Continue IV ceftriaxone. -Follow urine culture. Seizure disorder On Keppra as an outpt. -continue Keppra in the IV form until able to take PO. Change to PO as tolerates Hypothyroidism S/p thyroidectomy. -hold levothyroxine until able to take PO. PPx: SCDs DC tomorrow if eating and no more nausea lipase back to normal Possible discharge tomorrow if tolerates food Progress Note: Quality VTE Deep Vein Thrombosis/Pulmonary Embolism Present on Admission: No _ (1) Pancreatitis Qualifiers: Chronicity: Pancreatitis type: Acute pancreatitis complication:
[2018-10-22] MEDS: KCL 20 mEq/D5W/NaCl 0.45% Inj 1,000 ML IV.CONT SCH (05:07)
[2018-10-22] MEDS: Benzocaine/Menthol 15 MG/3.6 MG SF Lozenge BUCCAL PRN (05:08)
[2018-10-22] MEDS: Morphine Sulfate 100 MG SR Tablet PO PRN (07:38)
[2018-10-22 08:35] VITALS: RESP 17
[2018-10-22] MEDS: levETIRAcetam 500 MG Tablet PO SCH (09:24)
[2018-10-22] MEDS: Gabapentin 100 MG Capsule PO SCH (09:24)
[2018-10-22] MEDS: LORazepam 0.5 MG Tablet PO PRN (09:25)
[2018-10-22] MEDS: Senna/Docusate Sodium 8.6/50 MG Tablet PO SCH (09:25)
[2018-10-22 14:12] VITALS: BP 120/77; PULSE 104; TEMP 98.5; O2SAT 97
== END 2018-10-22 15:39 | disposition left against medical advice (07) ==
LOC: NEDA 08:01 → NEPE 08:01 → N06 15:54
PROVIDERS: ADMIT Hospitalist; ATTEND Hospitalist
DX: M54.9 Dorsalgia, unspecified; I25.2 Old myocardial infarction; K83.8 Other specified diseases of biliary tract; E89.0 Postprocedural hypothyroidism; Z82.49 Family history of ischemic heart disease and other diseases of the circulatory system; N39.0 Urinary tract infection, site not specified; R79.89 Other specified abnormal findings of blood chemistry; C73 Malignant neoplasm of thyroid gland; K52.9 Noninfective gastroenteritis and colitis, unspecified; Z98.891 History of uterine scar from previous surgery; B18.2 Chronic viral hepatitis C; Z23 Encounter for immunization; G89.29 Other chronic pain; Z86.73 Personal history of transient ischemic attack (TIA), and cerebral infarction without residual deficits; Z90.49 Acquired absence of other specified parts of digestive tract; B96.89 Other specified bacterial agents as the cause of diseases classified elsewhere; K85.90 Acute pancreatitis without necrosis or infection, unspecified; Z79.890 Hormone replacement therapy; Z90.710 Acquired absence of both cervix and uterus; F17.210 Nicotine dependence, cigarettes, uncomplicated; G40.909 Epilepsy, unspecified, not intractable, without status epilepticus; I10 Essential (primary) hypertension
CPT/HCPCS: 74181; 76377; 80048; 80053; 81001; 82948; 82962; 83690; 83735; 85025; 87086; 90471; 90658; 90686; 90761; 90772; 90775; 90776; 90782; 96361; 96365; 96366; 96367; 96368; 96372; 96375; 96376; 97110; 97116; 97162; 99285; C9113; G0008; G0378; G8987; G8988; J0696; J1170; J1953; J2060; J2405; J2550; J2765; J3480; J7030; Q2038